=== PATIENT | female | born 1955 | race Caucasian/White ===

== ENCOUNTER 2016-05-17 10:11 | Emergency (ER) | payer MEDICARE, SELFPAY ==
[~2016-05-17] VITALS: Ht 152.4 cm; Wt 65.0 kg
[~2016-05-17 10:11] MED LIST: BACL10TA PO; BENZ1TAB10 PO; ESOM40SU PO; FLUT16H NASAL; GABA-531 PO; INSNOV SQ; LEVO125 PO; LOSA50TA37 PO; METF500T4 PO; METO50 PO; SIMV-261 PO; TRAZ-147 PO; ZOLP5 PO
[2016-05-17 10:26] LABS: GLUCOSE,POINT OF CARE 219 MG/DL (70-110)
[2016-05-17 11:40] LABS: APPEARANCE,URINE CLEAR (CLEAR); GLUCOSE, URINE (UA) NEGATIVE (NEGATIVE); KETONES,URINE NEGATIVE (NEGATIVE); LEUKOCYTE ESTERASE ,URINE NEGATIVE (NEGATIVE); OCCULT BLOOD,URINE NEGATIVE (NEGATIVE); PH,URINE 5.5 (5.0-8.0); PROTEIN,URINE NEGATIVE (NEGATIVE)
[2016-05-17 11:41] LABS: ADD UA MICROSCOPIC NO
[2016-05-17 12:24] LABS: BASOPHILS # (AUTO) 0.08 K/uL (0.00-0.20); BASOPHILS % (AUTO) 0.9 % (0.0-2.0); EOSINOPHILS # (AUTO) 0.12 K/uL (0.00-0.70); EOSINOPHILS % (AUTO) 1.37 % (1.0-6.0); HEMATOCRIT 46.5 % (36-46); HEMOGLOBIN 15.2 g/dL (12.0-16.0); LYMPHOCYTES # (AUTO) 1.6 K/uL (1.0-4.8); MEAN CORPUSCULAR HEMOGLOBIN 29.4 pg (26.0-34.0); MEAN CORPUSCULAR HGB CONC 32.6 G/dL (31.0-37.0); MEAN CORPUSCULAR VOLUME 90 fL (80-100); MONOCYTES # (AUTO) 0.8 K/uL (0.1-1.0); MONOCYTES % (AUTO) 8.5 % (2.0-9.0); NEUTROPHILS # (AUTO) 6.4 K/uL (1.8-7.7); NEUTROPHILS % (AUTO) 71.3 % (40.0-70.0); PLATELET COUNT (AUTO) 324 K/uL (150-450); RED BLOOD CELL COUNT(AUTO) 5.16 MIL/uL (4.00-5.20); RED CELL DISTRIBUTION WIDTH 19.3 % (11.5-14.5)
[2016-05-17 12:42] LABS: ANION GAP 6 mmol/L (8-16); CALCIUM, TOTAL 9.2 mg/dL (8.8-10.5); CARBON DIOXIDE 30 mmol/L (22-29); CHLORIDE 100 mmol/L (98-107); CREATININE 1.62 mg/dL (0.60-1.30); GLOMERULAR FILTR. RATE CALC 32 mL/min (>60); POTASSIUM 4.2 mmol/L (3.5-5.1); SODIUM SERUM 136 mmol/L (136-145); UREA NITROGEN, BLOOD 16 mg/dL (7-18)
[2016-05-17 12:48] LABS: RBC MORPHOLOGY COMMENT ABNORMAL RBC MORPH
[2016-05-17 12:53] VITALS: BP 101/65
[2016-05-17 13:01] LABS: TROPONIN I 0.04 ng/mL (0.00-0.05)
[2016-05-17 13:08] LABS: ALANINE AMINOTRANSFERASE 24 U/L (12-78); ALBUMIN 3.4 g/dL (3.4-5.0); ASPARTATE AMINOTRANSFERASE 14 U/L (15-37); BILIRUBIN,TOTAL 0.3 mg/dL (0.1-1.0); CREATINE KINASE MB 1.8 ng/mL (0-5); CREATINE KINASE, TOTAL 156 U/L (26-192); TOTAL PROTEIN, SERUM 7.1 g/dL (6.4-8.2)
[2016-05-17] MEDS ORDERED: ESOM20CA31 PO (14:13)
[2016-05-17] MEDS ORDERED: TraMADol HCL 50 MG TABLET PO ONE (14:15)
[2016-05-17 14:18] LABS: B-TYPE NATRIURETIC PEPTIDE < 5 pg/mL (0-100)
[2016-09-06] MEDS ORDERED: DSS100 PO (15:02)
[2016-09-06] MEDS ORDERED: PANT40TA25 PO (15:02)
[2016-09-06] MEDS ORDERED: PERCT PO (15:03)
[2016-09-06] MEDS ORDERED: [UNRECOGNIZED DRUG - CODE] IV (15:05)
== END 2016-05-17 15:53 | disposition home or self-care (01) ==
LOC: EMS 10:13
DX: E86.0 Dehydration (principal); M54.5 Low back pain; F17.210 Nicotine dependence, cigarettes, uncomplicated; J45.909 Unspecified asthma, uncomplicated; I10 Essential (primary) hypertension; E11.9 Type 2 diabetes mellitus without complications
CPT/HCPCS: 82962; 99285; 99406

== ENCOUNTER 2016-07-30 16:20 | Inpatient (IN) | payer MEDICARE ==
[~2016-07-30] VITALS: Ht 149.9 cm; Wt 101.5 kg
[~2016-07-30 16:20] MED LIST changes: +ESOM20CA31 PO; -ESOM40SU PO
[2016-07-30 17:42] LABS: BASOPHILS % (AUTO) 0.5 % (0.0-2.0); EOSINOPHILS % (AUTO) 3.1 % (1.0-6.0); HEMATOCRIT 50.4 % (36-46); LYMPHOCYTES # (AUTO) 2.3 K/uL (1.0-4.8); LYMPHOCYTES % (AUTO) 30.3 % (22.0-44.0); MEAN CORPUSCULAR HEMOGLOBIN 28.9 pg (26.0-34.0); MEAN CORPUSCULAR HGB CONC 31.7 G/dL (31.0-37.0); MEAN CORPUSCULAR VOLUME 91 fL (80-100); MONOCYTES # (AUTO) 0.4 K/uL (0.1-1.0); NEUTROPHILS # (AUTO) 4.5 K/uL (1.8-7.7); NEUTROPHILS % (AUTO) 60.1 % (40.0-70.0); PLATELET COUNT (AUTO) 307 K/uL (150-450); RED BLOOD CELL COUNT(AUTO) 5.52 MIL/uL (4.00-5.20); RED CELL DISTRIBUTION WIDTH 16.6 % (11.5-14.5); WHITE BLOOD COUNT (AUTO) 7.5 K/uL (4.5-11.0)
[2016-07-30 17:51] VITALS: BP 147/103
[2016-07-30 17:52] LABS: CALCIUM, TOTAL 10.3 mg/dL (8.8-10.5); CREATININE 1.27 mg/dL (0.60-1.30); POTASSIUM 5.1 mmol/L (3.5-5.1)
[2016-07-30 17:58] LABS: ALBUMIN 3.3 g/dL (3.4-5.0); BILIRUBIN,TOTAL 0.3 mg/dL (0.1-1.0)
[2016-07-30] MEDS ORDERED: ALBUTEROL SULFATE HFA 90 MCG/PUFF 8 GM INHALER IH PRN (18:30)
[2016-07-30] MEDS ORDERED: ONDANSETRON HCL 4 MG/2 ML VIAL IVP PRN (19:15)
[2016-07-30] MEDS ORDERED: ZOLPIDEM TARTRATE 5 MG TABLET PO PRN (19:15)
[2016-07-30 19:43] VITALS: BP 140/93
[2016-07-30] MEDS ORDERED: IOVERSOL 350 MG/ML 150 ML VIAL ONE (19:45)
[2016-07-30] MEDS ORDERED: SODIUM CHLORIDE 0.9% 100 ML ONE (19:45)
[2016-07-30] MEDS ORDERED: BARIUM SULFATE 0.1% SUSPENSION 450 ML BOTTLE ONE (19:46)
[2016-07-30 21:03] LABS: PROTHROMBIN TIME 10.8 SEC (9.4-11.6)
[2016-07-30] MEDS: GABAPENTIN 400 MG CAPSULE PO SCH (21:15)
[2016-07-30] MEDS: ENOXAPARIN SODIUM 40 MG/0.4 ML PF SYRINGE SQ SCH (21:15)
[2016-07-30] MEDS: METOPROLOL TARTRATE 50 MG TABLET PO SCH (21:16)
[2016-07-30] MEDS: TraZODone HCL 150 MG TABLET PO SCH (21:16)
[2016-07-30] MEDS: MIRTAZAPINE 30 MG TABLET PO SCH (21:16)
[2016-07-30 23:36] VITALS: BP 101/57
[2016-07-31 04:52] VITALS: BP 118/65
[2016-07-31] MEDS: LEVOTHYROXINE SODIUM 125 MCG TABLET PO SCH (05:50)
[2016-07-31 07:39] VITALS: BP 119/66
[2016-07-31] MEDS: MetFORMIN HCL 500 MG TABLET PO SCH ×2 (08:00→17:53)
[2016-07-31 08:12] LABS: GLUCOSE,POINT OF CARE 85 MG/DL (70-110)
[2016-07-31] MEDS ORDERED: QUEtiapine FUMARATE 200 MG TABLET PO SCH (09:00)
[2016-07-31] MEDS: METOPROLOL TARTRATE 50 MG TABLET PO SCH ×2 (09:00→21:00)
[2016-07-31 11:30] VITALS: BP 106/72
[2016-07-31 11:52] LABS: GLUCOSE,POINT OF CARE 89 MG/DL (70-110)
[2016-07-31] MEDS ORDERED: SODIUM CHLORIDE 0.9% 100 ML ONE (13:13)
[2016-07-31] MEDS ORDERED: IOVERSOL 350 MG/ML 100 ML VIAL ONE (13:13)
[2016-07-31] MEDS: FLUTICASONE/VILANTEROL 200-25 MCG/INH INHALER [14] IH SCH (15:24)
[2016-07-31] MEDS: GABAPENTIN 400 MG CAPSULE PO SCH ×3 (15:26→20:46)
[2016-07-31] MEDS: PANTOPRAZOLE SODIUM 40 MG DR TABLET PO SCH (15:26)
[2016-07-31] MEDS: RisperiDONE 1 MG TABLET PO SCH (15:27)
[2016-07-31] MEDS: ENOXAPARIN SODIUM 40 MG/0.4 ML PF SYRINGE SQ SCH (15:27)
[2016-07-31] MEDS: LOSARTAN POTASSIUM 50 MG TABLET PO SCH (15:27)
[2016-07-31 16:16] VITALS: BP 128/75
[2016-07-31 17:38] LABS: GLUCOSE,POINT OF CARE 162 MG/DL (70-110)
[2016-07-31] MEDS: OxyCODONE HCL/ACETAMINOPHEN 5-325 MG TABLET PO PRN ×2 (17:53→23:42)
[2016-07-31 19:35] VITALS: BP 118/73
[2016-07-31 20:15] LABS: EOSINOPHILS % (AUTO) 1.9 % (1.0-6.0); HEMATOCRIT 45.4 % (36-46); HEMOGLOBIN 14.5 g/dL (12.0-16.0); LYMPHOCYTES # (AUTO) 2.1 K/uL (1.0-4.8); LYMPHOCYTES % (AUTO) 33.1 % (22.0-44.0); MEAN CORPUSCULAR HEMOGLOBIN 28.9 pg (26.0-34.0); MEAN CORPUSCULAR VOLUME 90 fL (80-100); MONOCYTES # (AUTO) 0.3 K/uL (0.1-1.0); MONOCYTES % (AUTO) 5.1 % (2.0-9.0); NEUTROPHILS # (AUTO) 3.7 K/uL (1.8-7.7); NEUTROPHILS % (AUTO) 58.9 % (40.0-70.0); PLATELET COUNT (AUTO) 300 K/uL (150-450); RED BLOOD CELL COUNT(AUTO) 5.02 MIL/uL (4.00-5.20); RED CELL DISTRIBUTION WIDTH 16.1 % (11.5-14.5); WHITE BLOOD COUNT (AUTO) 6.2 K/uL (4.5-11.0)
[2016-07-31 20:32] LABS: ALBUMIN 2.7 g/dL (3.4-5.0); BILIRUBIN,TOTAL 0.2 mg/dL (0.1-1.0); CALCIUM, TOTAL 8.5 mg/dL (8.8-10.5); CREATININE 1.08 mg/dL (0.60-1.30); POTASSIUM 4.4 mmol/L (3.5-5.1); TOTAL PROTEIN, SERUM 5.9 g/dL (6.4-8.2)
[2016-07-31] MEDS: TraZODone HCL 150 MG TABLET PO SCH (20:46)
[2016-07-31] MEDS: MIRTAZAPINE 30 MG TABLET PO SCH (20:46)
[2016-07-31] MEDS: QUEtiapine FUMARATE 200 MG TABLET PO SCH (20:46)
[2016-07-31 23:32] VITALS: BP 101/57
[2016-08-01 04:52] VITALS: BP 98/66
[2016-08-01] MEDS: OxyCODONE HCL/ACETAMINOPHEN 5-325 MG TABLET PO PRN ×5 (05:02→20:11)
[2016-08-01] MEDS: LEVOTHYROXINE SODIUM 125 MCG TABLET PO SCH (05:54)
[2016-08-01] MEDS: PANTOPRAZOLE SODIUM 40 MG DR TABLET PO SCH (08:05)
[2016-08-01] MEDS: GABAPENTIN 400 MG CAPSULE PO SCH ×3 (08:05→20:08)
[2016-08-01] MEDS: LOSARTAN POTASSIUM 50 MG TABLET PO SCH (08:05)
[2016-08-01] MEDS: FLUTICASONE/VILANTEROL 200-25 MCG/INH INHALER [14] IH SCH (08:05)
[2016-08-01] MEDS: MetFORMIN HCL 500 MG TABLET PO SCH ×2 (08:05→17:20)
[2016-08-01] MEDS: METOPROLOL TARTRATE 50 MG TABLET PO SCH ×2 (08:06→20:10)
[2016-08-01] MEDS: ENOXAPARIN SODIUM 40 MG/0.4 ML PF SYRINGE SQ SCH (08:06)
[2016-08-01] MEDS: RisperiDONE 1 MG TABLET PO SCH (08:06)
[2016-08-01 08:32] VITALS: BP 108/65
[2016-08-01] MEDS ORDERED: DENTURE ADHESIVE 68 GM CREAM DT PRN (10:45)
[2016-08-01 12:06] VITALS: BP 109/54
[2016-08-01 12:07] LABS: GLUCOSE,POINT OF CARE 105 MG/DL (70-110)
[2016-08-01 15:02] VITALS: BP 105/51
[2016-08-01 17:51] LABS: GLUCOSE,POINT OF CARE 109 MG/DL (70-110)
[2016-08-01] MEDS: MIRTAZAPINE 30 MG TABLET PO SCH (20:06)
[2016-08-01] MEDS: TraZODone HCL 150 MG TABLET PO SCH (20:08)
[2016-08-01] MEDS: QUEtiapine FUMARATE 200 MG TABLET PO SCH (20:10)
[2016-08-01] MEDS ORDERED: BISACODYL 10 MG RECTAL RECTAL SUPPOSITORY PR ONE (20:15)
[2016-08-01 20:18] VITALS: BP 124/59
[2016-08-02] VITALS (7 sets, daily range): BP systolic 90–112; BP diastolic 40–67
[2016-08-02] MEDS: LEVOTHYROXINE SODIUM 125 MCG TABLET PO SCH (06:41)
[2016-08-02] MEDS: GABAPENTIN 400 MG CAPSULE PO SCH ×3 (08:16→20:28)
[2016-08-02] MEDS: MetFORMIN HCL 500 MG TABLET PO SCH ×2 (08:16→17:01)
[2016-08-02] MEDS: PANTOPRAZOLE SODIUM 40 MG DR TABLET PO SCH (08:16)
[2016-08-02] MEDS: RisperiDONE 1 MG TABLET PO SCH (08:16)
[2016-08-02] MEDS: LOSARTAN POTASSIUM 50 MG TABLET PO SCH (08:17)
[2016-08-02] MEDS: ENOXAPARIN SODIUM 40 MG/0.4 ML PF SYRINGE SQ SCH (08:17)
[2016-08-02] MEDS: FLUTICASONE/VILANTEROL 200-25 MCG/INH INHALER [14] IH SCH (08:17)
[2016-08-02] MEDS: MAGNESIUM CITRATE 300 ML ORAL SOLUTION PO SCH ×2 (09:00→17:02)
[2016-08-02] MEDS: METOPROLOL TARTRATE 50 MG TABLET PO SCH ×2 (09:00→20:28)
[2016-08-02] MEDS: PEG 3350/NA SULF,BICARB,CL/KCL 4000 ML SOLUTION PO ONE ×2 (11:49→18:49)
[2016-08-02] MEDS: OxyCODONE HCL/ACETAMINOPHEN 5-325 MG TABLET PO PRN ×2 (12:21→15:49)
[2016-08-02 14:02] LABS: GLUCOSE,POINT OF CARE 90 MG/DL (70-110)
[2016-08-02 17:02] LABS: GLUCOSE,POINT OF CARE 105 MG/DL (70-110)
[2016-08-02] MEDS: TraZODone HCL 150 MG TABLET PO SCH (20:28)
[2016-08-02] MEDS: QUEtiapine FUMARATE 200 MG TABLET PO SCH (20:28)
[2016-08-02] MEDS: MIRTAZAPINE 30 MG TABLET PO SCH (20:28)
[2016-08-03] VITALS (7 sets, daily range): BP systolic 94–113; BP diastolic 56–71
[2016-08-03] MEDS: OxyCODONE HCL/ACETAMINOPHEN 5-325 MG TABLET PO PRN ×5 (01:39→18:09)
[2016-08-03] MEDS: LEVOTHYROXINE SODIUM 125 MCG TABLET PO SCH (05:19)
[2016-08-03] MEDS: PANTOPRAZOLE SODIUM 40 MG DR TABLET PO SCH (08:01)
[2016-08-03] MEDS: GABAPENTIN 400 MG CAPSULE PO SCH ×3 (08:01→19:59)
[2016-08-03] MEDS: ENOXAPARIN SODIUM 40 MG/0.4 ML PF SYRINGE SQ SCH (08:01)
[2016-08-03] MEDS: FLUTICASONE/VILANTEROL 200-25 MCG/INH INHALER [14] IH SCH (08:01)
[2016-08-03] MEDS: RisperiDONE 1 MG TABLET PO SCH (08:01)
[2016-08-03] MEDS: LORazepam 1 MG TABLET PO PRN (08:01)
[2016-08-03] MEDS: MetFORMIN HCL 500 MG TABLET PO SCH ×2 (08:04→18:05)
[2016-08-03] MEDS: METOPROLOL TARTRATE 50 MG TABLET PO SCH ×2 (09:00→20:00)
[2016-08-03] MEDS: LOSARTAN POTASSIUM 50 MG TABLET PO SCH (09:00)
[2016-08-03] MEDS: MAGNESIUM CITRATE 300 ML ORAL SOLUTION PO SCH (11:11)
[2016-08-03 11:47] LABS: GLUCOSE,POINT OF CARE 106 MG/DL (70-110)
[2016-08-03 17:22] LABS: GLUCOSE,POINT OF CARE 118 MG/DL (70-110)
[2016-08-03] MEDS: TraZODone HCL 150 MG TABLET PO SCH (19:59)
[2016-08-03] MEDS: QUEtiapine FUMARATE 200 MG TABLET PO SCH (19:59)
[2016-08-03] MEDS: MIRTAZAPINE 30 MG TABLET PO SCH (20:00)
[2016-08-04] MEDS: OxyCODONE HCL/ACETAMINOPHEN 5-325 MG TABLET PO PRN ×5 (04:23→20:48)
[2016-08-04] MEDS: LEVOTHYROXINE SODIUM 125 MCG TABLET PO SCH (05:39)
[2016-08-04 06:01] VITALS: BP 118/76
[2016-08-04] MEDS ORDERED: LEVOTHYROXINE SODIUM 125 MCG TABLET PO SCH (07:00)
[2016-08-04 08:00] VITALS: BP 131/82
[2016-08-04] MEDS ORDERED: MetFORMIN HCL 500 MG TABLET PO SCH (08:00)
[2016-08-04] MEDS ORDERED: METOPROLOL TARTRATE 50 MG TABLET PO SCH (09:00)
[2016-08-04] MEDS: MAGNESIUM CITRATE 300 ML ORAL SOLUTION PO SCH (09:00)
[2016-08-04] MEDS ORDERED: LOSARTAN POTASSIUM 50 MG TABLET PO SCH (09:00)
[2016-08-04] MEDS: LOSARTAN POTASSIUM 50 MG TABLET PO SCH (10:01)
[2016-08-04] MEDS: GABAPENTIN 300 MG CAPSULE PO SCH ×3 (10:01→20:48)
[2016-08-04] MEDS: PANTOPRAZOLE SODIUM 40 MG DR TABLET PO SCH (10:02)
[2016-08-04] MEDS: MetFORMIN HCL 500 MG TABLET PO SCH ×2 (10:11→16:37)
[2016-08-04] MEDS: ENOXAPARIN SODIUM 40 MG/0.4 ML PF SYRINGE SQ SCH (10:12)
[2016-08-04] MEDS: METOPROLOL TARTRATE 50 MG TABLET PO SCH ×2 (10:12→20:49)
[2016-08-04] MEDS: FLUTICASONE/VILANTEROL 200-25 MCG/INH INHALER [14] IH SCH (10:12)
[2016-08-04] MEDS: BENZTROPINE MESYLATE 1 MG TABLET PO SCH ×2 (11:36→20:48)
[2016-08-04] MEDS: BACLOFEN 10 MG TABLET PO SCH ×2 (11:36→20:49)
[2016-08-04] MEDS: RisperiDONE 1 MG TABLET PO SCH (12:12)
[2016-08-04 12:19] VITALS: BP 112/57
[2016-08-04 15:32] VITALS: BP 116/65
[2016-08-04] MEDS ORDERED: ENOXAPARIN SODIUM 30 MG/0.3 ML PF SYRINGE SQ SCH (19:00)
[2016-08-04 19:44] VITALS: BP 93/53
[2016-08-04] MEDS: QUEtiapine FUMARATE 200 MG TABLET PO SCH (20:47)
[2016-08-04] MEDS: SIMVASTATIN 20 MG TABLET PO SCH (20:48)
[2016-08-04] MEDS: ZOLPIDEM TARTRATE 5 MG TABLET PO SCH (20:48)
[2016-08-04] MEDS: MIRTAZAPINE 30 MG TABLET PO SCH (20:48)
[2016-08-04] MEDS: TraZODone HCL 100 MG TABLET PO SCH (21:00)
[2016-08-04] MEDS ORDERED: DEXTROSE 50%-WATER 25 GM/50 ML SYRINGE IVP PRN (21:00)
[2016-08-05] VITALS (7 sets, daily range): BP systolic 111–139; BP diastolic 44–85
[2016-08-05] MEDS: OxyCODONE HCL/ACETAMINOPHEN 5-325 MG TABLET PO PRN ×4 (05:05→20:07)
[2016-08-05 05:22] LABS: GLUCOSE,POINT OF CARE 88 MG/DL (70-110)
[2016-08-05] MEDS: INSULIN ASPART 100 UNITS/ML SQ PRN ×2 (05:28→20:35)
[2016-08-05] MEDS: LEVOTHYROXINE SODIUM 125 MCG TABLET PO SCH (07:29)
[2016-08-05] MEDS: PANTOPRAZOLE SODIUM 40 MG DR TABLET PO SCH (07:55)
[2016-08-05] MEDS: FLUTICASONE/VILANTEROL 200-25 MCG/INH INHALER [14] IH SCH (07:55)
[2016-08-05] MEDS: BACLOFEN 10 MG TABLET PO SCH ×2 (07:56→20:07)
[2016-08-05] MEDS: GABAPENTIN 300 MG CAPSULE PO SCH ×3 (07:56→23:46)
[2016-08-05] MEDS: METOPROLOL TARTRATE 50 MG TABLET PO SCH ×2 (07:57→23:44)
[2016-08-05] MEDS: BENZTROPINE MESYLATE 1 MG TABLET PO SCH ×2 (07:59→20:08)
[2016-08-05] MEDS: LOSARTAN POTASSIUM 50 MG TABLET PO SCH (08:00)
[2016-08-05] MEDS: RisperiDONE 1 MG TABLET PO SCH (08:23)
[2016-08-05 12:22] LABS: GLUCOSE,POINT OF CARE 75 MG/DL (70-110)
[2016-08-05 17:52] LABS: GLUCOSE,POINT OF CARE 93 MG/DL (70-110)
[2016-08-05] MEDS: TraZODone HCL 100 MG TABLET PO SCH (20:07)
[2016-08-05] MEDS: MIRTAZAPINE 30 MG TABLET PO SCH (20:07)
[2016-08-05] MEDS: SIMVASTATIN 20 MG TABLET PO SCH (20:07)
[2016-08-05] MEDS: ZOLPIDEM TARTRATE 5 MG TABLET PO SCH (20:07)
[2016-08-05] MEDS ORDERED: FentaNYL/BUPIV 0.125%/NS/PF 200 ML ED PRN (20:08)
[2016-08-05] MEDS: QUEtiapine FUMARATE 200 MG TABLET PO SCH (20:08)
[2016-08-05] MEDS ORDERED: PROMETHAZINE HCL 25 MG/ML VIAL IM PRN (20:15)
[2016-08-05] MEDS ORDERED: ONDANSETRON HCL 4 MG/2 ML VIAL IVP PRN (20:15)
[2016-08-05] MEDS ORDERED: NALBUPHINE HCL 10 MG/ML VIAL IVP PRN (20:15)
[2016-08-05] MEDS ORDERED: DiphenhydrAMINE HCL 50 MG/ML VIAL IVP PRN (20:15)
[2016-08-05 20:57] LABS: GLUCOSE,POINT OF CARE 170 MG/DL (70-110)
[2016-08-06 03:33] VITALS: BP 105/56
[2016-08-06 05:42] LABS: GLUCOSE,POINT OF CARE 94 MG/DL (70-110)
[2016-08-06] MEDS: LEVOTHYROXINE SODIUM 125 MCG TABLET PO SCH (06:23)
[2016-08-06] MEDS ORDERED: RINGERS SOLUTION,LACTATED 1,000 ML IV ONE ×2 (06:30→10:45)
[2016-08-06] MEDS ORDERED: SODIUM CHLORIDE 0.9% 10 ML ONE (07:09)
[2016-08-06] MEDS ORDERED: BUPIVACAINE 0.25%/EPI 1:200,000/PF 10 ML VIAL ONE ×3 (07:09→10:37)
[2016-08-06] MEDS ORDERED: BACITRACIN 50,000 UNITS/VIAL ONE (07:09)
[2016-08-06] MEDS: METOPROLOL TARTRATE 50 MG TABLET PO SCH ×2 (09:00→21:00)
[2016-08-06] MEDS: BENZTROPINE MESYLATE 1 MG TABLET PO SCH ×2 (09:00→19:33)
[2016-08-06] MEDS: LOSARTAN POTASSIUM 50 MG TABLET PO SCH (09:00)
[2016-08-06] MEDS: GABAPENTIN 300 MG CAPSULE PO SCH ×3 (09:00→23:54)
[2016-08-06] MEDS: RisperiDONE 1 MG TABLET PO SCH (09:00)
[2016-08-06] MEDS: FLUTICASONE/VILANTEROL 200-25 MCG/INH INHALER [14] IH SCH (09:00)
[2016-08-06] MEDS: BACLOFEN 10 MG TABLET PO SCH ×2 (09:00→19:32)
[2016-08-06] MEDS ORDERED: HYDROmorphone 2 MG/ML SYRINGE IVP PRN (09:15)
[2016-08-06] MEDS ORDERED: MEPERIDINE-PF 25 MG/ML SYRINGE IVP PRN (09:15)
[2016-08-06] MEDS ORDERED: FentaNYL CITRATE-PF 100 MCG/2 ML VIAL IVP PRN (09:15)
[2016-08-06] MEDS ORDERED: PHENYLEPHRINE HCL 10 MG/ML VIAL IVP ONE (12:00)
[2016-08-06] MEDS ORDERED: PROPOFOL 1% 20 ML VIAL IVP ONE (12:00)
[2016-08-06] MEDS ORDERED: ROCURONIUM BROMIDE 10 MG/ML 5 ML VIAL IVP ONE (12:00)
[2016-08-06] MEDS ORDERED: ONDANSETRON HCL 4 MG/2 ML VIAL IVP ONE (12:00)
[2016-08-06] MEDS ORDERED: LIDOCAINE HCL/PF 2% 5 ML VIAL INJ ONE (12:00)
[2016-08-06] MEDS ORDERED: GLYCOPYRROLATE 0.2 MG/ML VIAL IM ONE (12:00)
[2016-08-06] MEDS ORDERED: NEOSTIGMINE METHYLSULFATE 1 MG/ML 10 ML VIAL IVP ONE (12:00)
[2016-08-06] MEDS ORDERED: EPHEDrine SULFATE 50 MG/ML VIAL IM ONE (12:00)
[2016-08-06] MEDS ORDERED: HYDROmorphone 2 MG/ML SYRINGE IVP ONE (12:00)
[2016-08-06] MEDS ORDERED: SUCCINYLCHOLINE CHLORIDE 20 MG/ML 10 ML VIAL IVP ONE (12:00)
[2016-08-06] MEDS ORDERED: MIDAZOLAM HCL 2 MG/2 ML VIAL IVP ONE (12:00)
[2016-08-06] MEDS ORDERED: FentaNYL CITRATE-PF 100 MCG/2 ML VIAL IVP ONE (12:00)
[2016-08-06] MEDS ORDERED: METOCLOPRAMIDE HCL 5 MG/ML 2 ML VIAL IVP ONE (12:00)
[2016-08-06] MEDS ORDERED: DEXTROSE 5%-0.45% SODIUM CHL 1,000 ML IV PRN (12:24)
[2016-08-06] MEDS ORDERED: HYDROmorphone HCL 50 MG/NS/PF 100 ML IV PRN ×4 (12:24→18:30)
[2016-08-06] MEDS ORDERED: DiphenhydrAMINE HCL 50 MG/ML VIAL IVP PRN (12:30)
[2016-08-06] MEDS ORDERED: NALBUPHINE HCL 10 MG/ML VIAL IVP PRN (12:30)
[2016-08-06] MEDS ORDERED: NALOXONE HCL 0.4 MG/ML VIAL IVP PRN (12:30)
[2016-08-06] MEDS ORDERED: PROMETHAZINE HCL 25 MG RECTAL SUPPOSITORY PR PRN (12:30)
[2016-08-06] MEDS ORDERED: NALOXONE HCL 0.4 MG/ML VIAL IM PRN (12:30)
[2016-08-06] MEDS ORDERED: FentaNYL CITRATE-PF 100 MCG/2 ML VIAL ONE (12:57)
[2016-08-06 14:32] VITALS: BP 119/78
[2016-08-06] MEDS: CeFAZolin 2 GM/DEXTROSE 50 ML IV SCH (16:25)
[2016-08-06] MEDS: POTASSIUM CHL 20 MEQ/D5LR 1,000 ML IV SCH (16:26)
[2016-08-06 18:02] LABS: GLUCOSE,POINT OF CARE 215 MG/DL (70-110)
[2016-08-06] MEDS: LORazepam 1 MG TABLET PO PRN (18:08)
[2016-08-06] MEDS: INSULIN ASPART 100 UNITS/ML SQ PRN ×2 (18:15→21:42)
[2016-08-06] MEDS: SIMVASTATIN 20 MG TABLET PO SCH (19:32)
[2016-08-06] MEDS: QUEtiapine FUMARATE 200 MG TABLET PO SCH (19:32)
[2016-08-06] MEDS: MIRTAZAPINE 30 MG TABLET PO SCH (19:32)
[2016-08-06] MEDS: FAMOTIDINE 20 MG TABLET PO SCH (19:33)
[2016-08-06] MEDS: ONDANSETRON HCL 4 MG/2 ML VIAL IVP PRN (19:38)
[2016-08-06 20:00] VITALS: BP 94/57
[2016-08-06] MEDS: TraZODone HCL 100 MG TABLET PO SCH (21:00)
[2016-08-06] MEDS: ZOLPIDEM TARTRATE 5 MG TABLET PO SCH (21:00)
[2016-08-06 21:12] LABS: GLUCOSE,POINT OF CARE 183 MG/DL (70-110)
[2016-08-06] MEDS ORDERED: SODIUM CHLORIDE 0.9% 500 ML IV ONE ×2 (21:30→22:45)
[2016-08-06] MEDS: OXYGEN THERAPY IH SCH (21:44)
[2016-08-06 21:49] VITALS: BP 110/60
[2016-08-06 21:53] LABS: HEMATOCRIT 49.3 % (36-46); HEMOGLOBIN 15.9 g/dL (12.0-16.0); MEAN CORPUSCULAR HEMOGLOBIN 29.5 pg (26.0-34.0); MEAN CORPUSCULAR HGB CONC 32.2 G/dL (31.0-37.0); MEAN CORPUSCULAR VOLUME 92 fL (80-100); PLATELET COUNT (AUTO) 276 K/uL (150-450); RED BLOOD CELL COUNT(AUTO) 5.38 MIL/uL (4.00-5.20); RED CELL DISTRIBUTION WIDTH 15.8 % (11.5-14.5); WHITE BLOOD COUNT (AUTO) 17.5 K/uL (4.5-11.0)
[2016-08-06 22:15] LABS: BAND NEUTROPHILS % (MANUAL) 13 % (1-5); EOSINOPHILS % (MANUAL) 1 % (1-6); LYMPHOCYTES % (MANUAL) 1 % (22-44); TOTAL CELLS COUNTED 100
[2016-08-06 22:17] LABS: RBC MORPHOLOGY COMMENT NORMAL RBC MORPH
[2016-08-06 23:10] VITALS: BP 101/62
[2016-08-07] VITALS (8 sets, daily range): BP systolic 90–155; BP diastolic 50–89
[2016-08-07] MEDS: CeFAZolin 2 GM/DEXTROSE 50 ML IV SCH (00:04)
[2016-08-07] MEDS: POTASSIUM CHL 20 MEQ/D5LR 1,000 ML IV SCH (02:37)
[2016-08-07] MEDS ORDERED: SODIUM CHLORIDE 0.9% 1,000 ML IV ONE (04:15)
[2016-08-07] MEDS ORDERED: OxyCODONE HCL/ACETAMINOPHEN 5-325 MG TABLET PO PRN ×2 (07:00)
[2016-08-07 07:01] LABS: CALCIUM, TOTAL 7.7 mg/dL (8.8-10.5); CREATININE 1.1 mg/dL (0.60-1.30); POTASSIUM 5.3 mmol/L (3.5-5.1)
[2016-08-07 07:16] LABS: BASOPHILS # (AUTO) 0.02 K/uL (0.00-0.20); BASOPHILS % (AUTO) 0.1 % (0.0-2.0); EOSINOPHILS # (AUTO) 0.04 K/uL (0.00-0.70); EOSINOPHILS % (AUTO) 0.31 % (1.0-6.0); HEMATOCRIT 45.9 % (36-46); HEMOGLOBIN 14.8 g/dL (12.0-16.0); LYMPHOCYTES # (AUTO) 0.7 K/uL (1.0-4.8); LYMPHOCYTES % (AUTO) 5.1 % (22.0-44.0); MEAN CORPUSCULAR HEMOGLOBIN 29.8 pg (26.0-34.0); MEAN CORPUSCULAR HGB CONC 32.3 G/dL (31.0-37.0); MEAN CORPUSCULAR VOLUME 92 fL (80-100); MONOCYTES # (AUTO) 0.4 K/uL (0.1-1.0); MONOCYTES % (AUTO) 2.5 % (2.0-9.0); NEUTROPHILS # (AUTO) 13.3 K/uL (1.8-7.7); PLATELET COUNT (AUTO) 271 K/uL (150-450); RBC MORPHOLOGY COMMENT NORMAL RBC MORPH; RED BLOOD CELL COUNT(AUTO) 4.98 MIL/uL (4.00-5.20); RED CELL DISTRIBUTION WIDTH 16.3 % (11.5-14.5); WHITE BLOOD COUNT (AUTO) 14.4 K/uL (4.5-11.0)
[2016-08-07] MEDS: LEVOTHYROXINE SODIUM 125 MCG TABLET PO SCH (07:36)
[2016-08-07] MEDS: LOSARTAN POTASSIUM 50 MG TABLET PO SCH (09:00)
[2016-08-07] MEDS: RisperiDONE 1 MG TABLET PO SCH (09:00)
[2016-08-07] MEDS: METOPROLOL TARTRATE 50 MG TABLET PO SCH ×2 (09:00→20:50)
[2016-08-07] MEDS: BACLOFEN 10 MG TABLET PO SCH ×2 (09:00→20:49)
[2016-08-07] MEDS: GABAPENTIN 300 MG CAPSULE PO SCH ×3 (09:00→20:48)
[2016-08-07] MEDS: BENZTROPINE MESYLATE 1 MG TABLET PO SCH ×2 (09:00→20:47)
[2016-08-07] MEDS: OXYGEN THERAPY IH SCH ×2 (09:14→21:08)
[2016-08-07] MEDS: FLUTICASONE/VILANTEROL 200-25 MCG/INH INHALER [14] IH SCH (09:21)
[2016-08-07] MEDS: FAMOTIDINE 20 MG TABLET PO SCH ×2 (09:22→20:48)
[2016-08-07] MEDS: DEXTROSE 5%-LACTATED RINGERS 1,000 ML IV SCH ×2 (10:00→21:09)
[2016-08-07] MEDS ORDERED: DEXTROSE 5%-LACTATED RINGERS 1,000 ML IV ONE (10:05)
[2016-08-07 11:58] LABS: GLUCOSE,POINT OF CARE 167 MG/DL (70-110)
[2016-08-07 20:11] LABS: GLUCOSE,POINT OF CARE 144 MG/DL (70-110)
[2016-08-07] MEDS: ZOLPIDEM TARTRATE 5 MG TABLET PO SCH (20:47)
[2016-08-07] MEDS: TraZODone HCL 100 MG TABLET PO SCH (20:48)
[2016-08-07] MEDS: QUEtiapine FUMARATE 200 MG TABLET PO SCH (20:49)
[2016-08-07] MEDS: SIMVASTATIN 20 MG TABLET PO SCH (20:49)
[2016-08-07] MEDS: MIRTAZAPINE 30 MG TABLET PO SCH (20:49)
[2016-08-07 22:22] LABS: GLUCOSE COMMENT 1 Received Meds; GLUCOSE,POINT OF CARE 136 MG/DL (70-110)
[2016-08-08] VITALS (7 sets, daily range): BP systolic 113–149; BP diastolic 47–74
[2016-08-08] MEDS: FLUTICASONE/VILANTEROL 200-25 MCG/INH INHALER [14] IH SCH (05:39)
[2016-08-08 06:12] LABS: GLUCOSE COMMENT 1 Received Meds; GLUCOSE,POINT OF CARE 148 MG/DL (70-110)
[2016-08-08 06:32] LABS: BASOPHILS % (AUTO) 0.3 % (0.0-2.0); EOSINOPHILS % (AUTO) 1.3 % (1.0-6.0); HEMATOCRIT 40.2 % (36-46); HEMOGLOBIN 12.5 g/dL (12.0-16.0); LYMPHOCYTES % (AUTO) 8.3 % (22.0-44.0); MEAN CORPUSCULAR HEMOGLOBIN 28.8 pg (26.0-34.0); MEAN CORPUSCULAR HGB CONC 31.1 G/dL (31.0-37.0); MEAN CORPUSCULAR VOLUME 93 fL (80-100); MONOCYTES # (AUTO) 0.7 K/uL (0.1-1.0); MONOCYTES % (AUTO) 6.2 % (2.0-9.0); NEUTROPHILS % (AUTO) 83.9 % (40.0-70.0); PLATELET COUNT (AUTO) 242 K/uL (150-450); RED BLOOD CELL COUNT(AUTO) 4.34 MIL/uL (4.00-5.20); RED CELL DISTRIBUTION WIDTH 16.7 % (11.5-14.5); WHITE BLOOD COUNT (AUTO) 11.9 K/uL (4.5-11.0)
[2016-08-08] MEDS: LEVOTHYROXINE SODIUM 125 MCG TABLET PO SCH (06:53)
[2016-08-08 07:01] LABS: ANION GAP 5 mmol/L (8-16); CALCIUM, TOTAL 7.9 mg/dL (8.8-10.5); CARBON DIOXIDE 28 mmol/L (22-29); CHLORIDE 100 mmol/L (98-107); CREATININE 0.81 mg/dL (0.60-1.30); GLOMERULAR FILTR. RATE CALC > 60 mL/min (>60); POTASSIUM 4.5 mmol/L (3.5-5.1); SODIUM SERUM 133 mmol/L (136-145); UREA NITROGEN, BLOOD 8 mg/dL (7-18)
[2016-08-08] MEDS: DEXTROSE 5%-LACTATED RINGERS 1,000 ML IV SCH (07:34)
[2016-08-08] MEDS: OXYGEN THERAPY IH SCH (08:37)
[2016-08-08] MEDS: BACLOFEN 10 MG TABLET PO SCH ×2 (08:38→20:30)
[2016-08-08] MEDS: GABAPENTIN 300 MG CAPSULE PO SCH ×3 (08:38→20:30)
[2016-08-08] MEDS: FAMOTIDINE 20 MG TABLET PO SCH ×2 (08:38→20:30)
[2016-08-08] MEDS: LOSARTAN POTASSIUM 50 MG TABLET PO SCH (08:38)
[2016-08-08] MEDS: RisperiDONE 1 MG TABLET PO SCH (08:38)
[2016-08-08] MEDS: BENZTROPINE MESYLATE 1 MG TABLET PO SCH ×2 (08:38→20:32)
[2016-08-08] MEDS: METOPROLOL TARTRATE 50 MG TABLET PO SCH ×2 (08:38→20:30)
[2016-08-08 11:17] LABS: GLUCOSE COMMENT 1 Received Meds; GLUCOSE,POINT OF CARE 139 MG/DL (70-110)
[2016-08-08] MEDS: INSULIN ASPART 100 UNITS/ML SQ PRN (17:42)
[2016-08-08 18:02] LABS: GLUCOSE COMMENT 1 Received Meds; GLUCOSE,POINT OF CARE 153 MG/DL (70-110)
[2016-08-08] MEDS: MIRTAZAPINE 30 MG TABLET PO SCH (20:30)
[2016-08-08] MEDS: QUEtiapine FUMARATE 200 MG TABLET PO SCH (20:30)
[2016-08-08] MEDS: TraZODone HCL 100 MG TABLET PO SCH (20:30)
[2016-08-08] MEDS: SIMVASTATIN 20 MG TABLET PO SCH (20:30)
[2016-08-08] MEDS: ZOLPIDEM TARTRATE 5 MG TABLET PO SCH (20:32)
[2016-08-09 04:00] VITALS: BP 125/65
[2016-08-09 05:37] LABS: GLUCOSE,POINT OF CARE 113 MG/DL (70-110)
[2016-08-09] MEDS: LEVOTHYROXINE SODIUM 125 MCG TABLET PO SCH (05:45)
[2016-08-09 06:29] LABS: BASOPHILS % (AUTO) 0.1 % (0.0-2.0); EOSINOPHILS % (AUTO) 2.1 % (1.0-6.0); HEMOGLOBIN 12.5 g/dL (12.0-16.0); LYMPHOCYTES # (AUTO) 0.8 K/uL (1.0-4.8); LYMPHOCYTES % (AUTO) 9.6 % (22.0-44.0); MEAN CORPUSCULAR HEMOGLOBIN 29.3 pg (26.0-34.0); MEAN CORPUSCULAR VOLUME 91 fL (80-100); MONOCYTES # (AUTO) 0.6 K/uL (0.1-1.0); MONOCYTES % (AUTO) 6.4 % (2.0-9.0); NEUTROPHILS # (AUTO) 7.2 K/uL (1.8-7.7); NEUTROPHILS % (AUTO) 81.8 % (40.0-70.0); PLATELET COUNT (AUTO) 219 K/uL (150-450); RED BLOOD CELL COUNT(AUTO) 4.27 MIL/uL (4.00-5.20); RED CELL DISTRIBUTION WIDTH 16.7 % (11.5-14.5); WHITE BLOOD COUNT (AUTO) 8.9 K/uL (4.5-11.0)
[2016-08-09 07:02] VITALS: BP 140/52
[2016-08-09 07:05] LABS: ANION GAP 5 mmol/L (8-16); CALCIUM, TOTAL 8.6 mg/dL (8.8-10.5); CARBON DIOXIDE 31 mmol/L (22-29); CHLORIDE 100 mmol/L (98-107); CREATININE 0.71 mg/dL (0.60-1.30); GLOMERULAR FILTR. RATE CALC > 60 mL/min (>60); POTASSIUM 4.1 mmol/L (3.5-5.1); SODIUM SERUM 136 mmol/L (136-145); UREA NITROGEN, BLOOD 6 mg/dL (7-18)
[2016-08-09 07:42] LABS: GLUCOSE,POINT OF CARE 123 MG/DL (70-110)
[2016-08-09] MEDS: OXYGEN THERAPY IH SCH (09:13)
[2016-08-09] MEDS: LOSARTAN POTASSIUM 50 MG TABLET PO SCH (09:14)
[2016-08-09] MEDS: FLUTICASONE/VILANTEROL 200-25 MCG/INH INHALER [14] IH SCH (09:14)
[2016-08-09] MEDS: FAMOTIDINE 20 MG TABLET PO SCH ×2 (09:14→20:37)
[2016-08-09] MEDS: GABAPENTIN 300 MG CAPSULE PO SCH ×3 (09:14→20:37)
[2016-08-09] MEDS: BENZTROPINE MESYLATE 1 MG TABLET PO SCH ×2 (09:14→20:53)
[2016-08-09] MEDS: RisperiDONE 1 MG TABLET PO SCH (09:15)
[2016-08-09] MEDS: METOPROLOL TARTRATE 50 MG TABLET PO SCH ×2 (09:15→20:53)
[2016-08-09] MEDS: BACLOFEN 10 MG TABLET PO SCH ×2 (09:15→20:37)
[2016-08-09 11:30] VITALS: BP 133/59
[2016-08-09 15:58] VITALS: BP 129/62
[2016-08-09] MEDS: INSULIN ASPART 100 UNITS/ML SQ PRN (17:51)
[2016-08-09 18:12] LABS: GLUCOSE COMMENT 1 Received Meds; GLUCOSE,POINT OF CARE 146 MG/DL (70-110)
[2016-08-09 19:00] VITALS: BP 119/65
[2016-08-09] MEDS ORDERED: HYDROCODONE/ACETAMINOPHEN 5-325 MG TABLET PO PRN (20:00)
[2016-08-09] MEDS ORDERED: BISACODYL 10 MG RECTAL RECTAL SUPPOSITORY PR ONE (20:00)
[2016-08-09] MEDS: TraZODone HCL 100 MG TABLET PO SCH (20:37)
[2016-08-09] MEDS: QUEtiapine FUMARATE 200 MG TABLET PO SCH (20:37)
[2016-08-09] MEDS: ZOLPIDEM TARTRATE 5 MG TABLET PO SCH (20:37)
[2016-08-09] MEDS: SIMVASTATIN 20 MG TABLET PO SCH (20:37)
[2016-08-09] MEDS: MIRTAZAPINE 30 MG TABLET PO SCH (20:39)
[2016-08-09] MEDS: HYDROmorphone 2 MG/ML SYRINGE IVP PRN (23:53)
[2016-08-10] VITALS (7 sets, daily range): BP systolic 94–145; BP diastolic 60–79
[2016-08-10 07:46] LABS: GLUCOSE,POINT OF CARE 109 MG/DL (70-110)
[2016-08-10] MEDS: METOPROLOL TARTRATE 50 MG TABLET PO SCH ×2 (08:03→20:25)
[2016-08-10] MEDS: RisperiDONE 1 MG TABLET PO SCH (08:03)
[2016-08-10] MEDS: FAMOTIDINE 20 MG TABLET PO SCH ×2 (08:03→20:23)
[2016-08-10] MEDS: LOSARTAN POTASSIUM 50 MG TABLET PO SCH (08:03)
[2016-08-10] MEDS: LEVOTHYROXINE SODIUM 125 MCG TABLET PO SCH (08:03)
[2016-08-10] MEDS: BENZTROPINE MESYLATE 1 MG TABLET PO SCH ×2 (08:03→20:23)
[2016-08-10] MEDS: GABAPENTIN 300 MG CAPSULE PO SCH ×3 (08:04→20:22)
[2016-08-10] MEDS: OXYGEN THERAPY IH SCH (08:04)
[2016-08-10] MEDS: BACLOFEN 10 MG TABLET PO SCH ×2 (08:04→20:22)
[2016-08-10] MEDS: FLUTICASONE/VILANTEROL 200-25 MCG/INH INHALER [14] IH SCH (08:04)
[2016-08-10] MEDS: HYDROmorphone 2 MG/ML SYRINGE IVP PRN ×3 (08:05→22:43)
[2016-08-10 09:17] LABS: BASOPHILS # (AUTO) 0.02 K/uL (0.00-0.20); BASOPHILS % (AUTO) 0.3 % (0.0-2.0); EOSINOPHILS # (AUTO) 0.07 K/uL (0.00-0.70); EOSINOPHILS % (AUTO) 1.01 % (1.0-6.0); HEMATOCRIT 39.3 % (36-46); HEMOGLOBIN 12.8 g/dL (12.0-16.0); LYMPHOCYTES # (AUTO) 0.7 K/uL (1.0-4.8); LYMPHOCYTES % (AUTO) 9.5 % (22.0-44.0); MEAN CORPUSCULAR HEMOGLOBIN 29.6 pg (26.0-34.0); MEAN CORPUSCULAR HGB CONC 32.5 G/dL (31.0-37.0); MEAN CORPUSCULAR VOLUME 91 fL (80-100); MONOCYTES # (AUTO) 0.6 K/uL (0.1-1.0); MONOCYTES % (AUTO) 8.5 % (2.0-9.0); NEUTROPHILS # (AUTO) 5.9 K/uL (1.8-7.7); NEUTROPHILS % (AUTO) 80.7 % (40.0-70.0); PLATELET COUNT (AUTO) 284 K/uL (150-450); RED BLOOD CELL COUNT(AUTO) 4.32 MIL/uL (4.00-5.20); RED CELL DISTRIBUTION WIDTH 16.4 % (11.5-14.5); WHITE BLOOD COUNT (AUTO) 7.4 K/uL (4.5-11.0)
[2016-08-10 09:28] LABS: ANION GAP 5 mmol/L (8-16); CALCIUM, TOTAL 8.7 mg/dL (8.8-10.5); CARBON DIOXIDE 32 mmol/L (22-29); CHLORIDE 99 mmol/L (98-107); CREATININE 0.75 mg/dL (0.60-1.30); GLOMERULAR FILTR. RATE CALC > 60 mL/min (>60); SODIUM SERUM 136 mmol/L (136-145); UREA NITROGEN, BLOOD 6 mg/dL (7-18)
[2016-08-10] MEDS: METOCLOPRAMIDE HCL 5 MG/ML 2 ML VIAL IVP PRN ×2 (10:14→18:54)
[2016-08-10 11:47] LABS: GLUCOSE,POINT OF CARE 154 MG/DL (70-110)
[2016-08-10] MEDS: INSULIN ASPART 100 UNITS/ML SQ PRN ×3 (12:05→20:28)
[2016-08-10] MEDS: SIMVASTATIN 20 MG TABLET PO SCH (20:22)
[2016-08-10] MEDS: MIRTAZAPINE 30 MG TABLET PO SCH (20:22)
[2016-08-10] MEDS: ZOLPIDEM TARTRATE 5 MG TABLET PO SCH (20:23)
[2016-08-10] MEDS: TraZODone HCL 100 MG TABLET PO SCH (20:23)
[2016-08-10] MEDS: QUEtiapine FUMARATE 200 MG TABLET PO SCH (20:24)
[2016-08-11] MEDS: ONDANSETRON HCL 4 MG/2 ML VIAL IVP PRN (00:20)
[2016-08-11 00:42] LABS: GLUCOSE,POINT OF CARE 125 MG/DL (70-110)
[2016-08-11 04:08] VITALS: BP 143/84
[2016-08-11] MEDS: SODIUM CHLORIDE 0.9% 1,000 ML IV SCH ×2 (04:21→15:50)
[2016-08-11] MEDS ORDERED: MAGNESIUM SULFATE 2 GM in DEXTROSE 5%-WATER 50 ML IV PRN (05:30)
[2016-08-11] MEDS ORDERED: MAGNESIUM SULFATE 4 GM/WATER 100 ML IV PRN (05:30)
[2016-08-11] MEDS: LEVOTHYROXINE SODIUM 125 MCG TABLET PO SCH (06:10)
[2016-08-11] MEDS: BACLOFEN 10 MG TABLET PO SCH ×2 (08:04→20:58)
[2016-08-11] MEDS: METOPROLOL TARTRATE 50 MG TABLET PO SCH ×2 (08:04→20:57)
[2016-08-11] MEDS: GABAPENTIN 300 MG CAPSULE PO SCH ×3 (08:04→20:58)
[2016-08-11] MEDS: BENZTROPINE MESYLATE 1 MG TABLET PO SCH ×2 (08:04→20:58)
[2016-08-11] MEDS: FAMOTIDINE 20 MG TABLET PO SCH ×2 (08:04→20:58)
[2016-08-11 08:05] LABS: ALBUMIN 2.1 g/dL (3.4-5.0); CALCIUM, TOTAL 8.7 mg/dL (8.8-10.5); CREATININE 1.08 mg/dL (0.60-1.30); MAGNESIUM 1.5 mg/dL (1.80-2.40); PHOSPHORUS 4.3 mg/dL (2.5-4.9); POTASSIUM 3.8 mmol/L (3.5-5.1)
[2016-08-11] MEDS: LOSARTAN POTASSIUM 50 MG TABLET PO SCH (08:05)
[2016-08-11] MEDS: RisperiDONE 1 MG TABLET PO SCH (08:05)
[2016-08-11] MEDS: FLUTICASONE/VILANTEROL 200-25 MCG/INH INHALER [14] IH SCH (08:05)
[2016-08-11] MEDS: OXYGEN THERAPY IH SCH (08:05)
[2016-08-11 08:14] VITALS: BP 136/72
[2016-08-11 08:18] LABS: BASOPHILS % (AUTO) 0.1 % (0.0-2.0); EOSINOPHILS % (AUTO) 0.1 % (1.0-6.0); HEMATOCRIT 38.7 % (36-46); HEMOGLOBIN 12.4 g/dL (12.0-16.0); LYMPHOCYTES # (AUTO) 0.5 K/uL (1.0-4.8); LYMPHOCYTES % (AUTO) 10.9 % (22.0-44.0); MEAN CORPUSCULAR VOLUME 91 fL (80-100); MONOCYTES # (AUTO) 0.8 K/uL (0.1-1.0); MONOCYTES % (AUTO) 18.2 % (2.0-9.0); NEUTROPHILS # (AUTO) 3.2 K/uL (1.8-7.7); NEUTROPHILS % (AUTO) 70.7 % (40.0-70.0); PLATELET COUNT (AUTO) 340 K/uL (150-450); RED BLOOD CELL COUNT(AUTO) 4.27 MIL/uL (4.00-5.20); RED CELL DISTRIBUTION WIDTH 16.5 % (11.5-14.5); WHITE BLOOD COUNT (AUTO) 4.6 K/uL (4.5-11.0)
[2016-08-11] MEDS: HYDROmorphone 2 MG/ML SYRINGE IVP PRN ×3 (08:29→18:18)
[2016-08-11] MEDS: INSULIN ASPART 100 UNITS/ML SQ PRN ×2 (11:35→16:35)
[2016-08-11 11:45] VITALS: BP 138/74
[2016-08-11 15:45] VITALS: BP 103/50
[2016-08-11 16:42] LABS: GLUCOSE,POINT OF CARE 114 MG/DL (70-110)
[2016-08-11 19:46] VITALS: BP 98/54
[2016-08-11] MEDS: SIMVASTATIN 20 MG TABLET PO SCH (20:57)
[2016-08-11] MEDS: ZOLPIDEM TARTRATE 5 MG TABLET PO SCH (20:58)
[2016-08-11] MEDS: MIRTAZAPINE 30 MG TABLET PO SCH (20:59)
[2016-08-11] MEDS: TraZODone HCL 100 MG TABLET PO SCH (20:59)
[2016-08-11] MEDS: QUEtiapine FUMARATE 200 MG TABLET PO SCH (20:59)
[2016-08-11 23:47] LABS: GLUCOSE,POINT OF CARE 113 MG/DL (70-110)
[2016-08-12] VITALS (7 sets, daily range): BP systolic 102–143; BP diastolic 56–69
[2016-08-12] MEDS: SODIUM CHLORIDE 0.9% 1,000 ML IV SCH ×2 (01:51→23:36)
[2016-08-12] MEDS: LEVOTHYROXINE SODIUM 125 MCG TABLET PO SCH (05:38)
[2016-08-12] MEDS: HYDROCODONE/ACETAMINOPHEN 10-325 MG TABLET PO PRN ×3 (05:38→23:34)
[2016-08-12 06:16] LABS: BASOPHILS # (AUTO) 0.01 K/uL (0.00-0.20); BASOPHILS % (AUTO) 0.3 % (0.0-2.0); EOSINOPHILS # (AUTO) 0.19 K/uL (0.00-0.70); HEMATOCRIT 34.5 % (36-46); HEMOGLOBIN 11.3 g/dL (12.0-16.0); LYMPHOCYTES # (AUTO) 0.7 K/uL (1.0-4.8); LYMPHOCYTES % (AUTO) 18.2 % (22.0-44.0); MEAN CORPUSCULAR HEMOGLOBIN 29.4 pg (26.0-34.0); MEAN CORPUSCULAR HGB CONC 32.7 G/dL (31.0-37.0); MEAN CORPUSCULAR VOLUME 90 fL (80-100); MONOCYTES # (AUTO) 0.7 K/uL (0.1-1.0); MONOCYTES % (AUTO) 16.5 % (2.0-9.0); NEUTROPHILS # (AUTO) 2.4 K/uL (1.8-7.7); NEUTROPHILS % (AUTO) 60.2 % (40.0-70.0); PLATELET COUNT (AUTO) 307 K/uL (150-450); RED BLOOD CELL COUNT(AUTO) 3.84 MIL/uL (4.00-5.20); RED CELL DISTRIBUTION WIDTH 16.5 % (11.5-14.5)
[2016-08-12 06:33] LABS: ANION GAP 5 mmol/L (8-16); CALCIUM, TOTAL 8.1 mg/dL (8.8-10.5); CARBON DIOXIDE 34 mmol/L (22-29); CHLORIDE 97 mmol/L (98-107); CREATININE 0.88 mg/dL (0.60-1.30); GLOMERULAR FILTR. RATE CALC > 60 mL/min (>60); POTASSIUM 3.5 mmol/L (3.5-5.1); SODIUM SERUM 136 mmol/L (136-145); UREA NITROGEN, BLOOD 24 mg/dL (7-18)
[2016-08-12 06:52] LABS: GLUCOSE,POINT OF CARE 124 MG/DL (70-110)
[2016-08-12 06:52] LABS: GLUCOSE,POINT OF CARE 93 MG/DL (70-110)
[2016-08-12] MEDS: FLUTICASONE/VILANTEROL 200-25 MCG/INH INHALER [14] IH SCH (08:49)
[2016-08-12] MEDS: BENZTROPINE MESYLATE 1 MG TABLET PO SCH ×2 (08:50→20:25)
[2016-08-12] MEDS: LOSARTAN POTASSIUM 50 MG TABLET PO SCH (08:50)
[2016-08-12] MEDS: BACLOFEN 10 MG TABLET PO SCH ×2 (08:50→20:26)
[2016-08-12] MEDS: GABAPENTIN 300 MG CAPSULE PO SCH ×3 (08:51→20:25)
[2016-08-12] MEDS: RisperiDONE 1 MG TABLET PO SCH (08:51)
[2016-08-12] MEDS: FAMOTIDINE 20 MG TABLET PO SCH ×2 (08:51→20:25)
[2016-08-12] MEDS: METOPROLOL TARTRATE 50 MG TABLET PO SCH ×2 (08:51→20:25)
[2016-08-12] MEDS: OXYGEN THERAPY IH SCH (08:52)
[2016-08-12] MEDS ORDERED: DIATRIZOATE MEGLU/SOD 660/100 MG/ML 120 ML BOTTLE ONE (10:48)
[2016-08-12 10:59] LABS: GLUCOSE COMMENT 1 Received Meds; GLUCOSE,POINT OF CARE 175 MG/DL (70-110)
[2016-08-12 10:59] LABS: GLUCOSE COMMENT 1 Received Meds; GLUCOSE,POINT OF CARE 152 MG/DL (70-110)
[2016-08-12 10:59] LABS: GLUCOSE,POINT OF CARE 148 MG/DL (70-110)
[2016-08-12 10:59] LABS: GLUCOSE,POINT OF CARE 113 MG/DL (70-110)
[2016-08-12 13:17] LABS: GLUCOSE,POINT OF CARE 80 MG/DL (70-110)
[2016-08-12 17:37] LABS: GLUCOSE,POINT OF CARE 71 MG/DL (70-110)
[2016-08-12] MEDS: SIMVASTATIN 20 MG TABLET PO SCH (20:25)
[2016-08-12] MEDS: ZOLPIDEM TARTRATE 5 MG TABLET PO SCH (20:25)
[2016-08-12] MEDS: TraZODone HCL 100 MG TABLET PO SCH (20:26)
[2016-08-12] MEDS: QUEtiapine FUMARATE 200 MG TABLET PO SCH (20:27)
[2016-08-12] MEDS: MIRTAZAPINE 30 MG TABLET PO SCH (20:27)
[2016-08-13 04:17] LABS: GLUCOSE,POINT OF CARE 96 MG/DL (70-110)
[2016-08-13 05:40] VITALS: BP 142/75
[2016-08-13] MEDS: LEVOTHYROXINE SODIUM 125 MCG TABLET PO SCH (06:33)
[2016-08-13 06:41] LABS: BASOPHILS % (AUTO) 0.2 % (0.0-2.0); EOSINOPHILS % (AUTO) 3.3 % (1.0-6.0); HEMATOCRIT 35.7 % (36-46); HEMOGLOBIN 11.5 g/dL (12.0-16.0); LYMPHOCYTES # (AUTO) 0.6 K/uL (1.0-4.8); LYMPHOCYTES % (AUTO) 10.2 % (22.0-44.0); MEAN CORPUSCULAR HEMOGLOBIN 29.3 pg (26.0-34.0); MEAN CORPUSCULAR HGB CONC 32.3 G/dL (31.0-37.0); MEAN CORPUSCULAR VOLUME 91 fL (80-100); MONOCYTES # (AUTO) 0.7 K/uL (0.1-1.0); MONOCYTES % (AUTO) 10.8 % (2.0-9.0); NEUTROPHILS # (AUTO) 4.5 K/uL (1.8-7.7); NEUTROPHILS % (AUTO) 75.5 % (40.0-70.0); PLATELET COUNT (AUTO) 323 K/uL (150-450); RED BLOOD CELL COUNT(AUTO) 3.94 MIL/uL (4.00-5.20); RED CELL DISTRIBUTION WIDTH 16.4 % (11.5-14.5)
[2016-08-13 06:52] LABS: GLUCOSE,POINT OF CARE 136 MG/DL (70-110)
[2016-08-13 07:06] LABS: ANION GAP 4 mmol/L (8-16); CALCIUM, TOTAL 8.1 mg/dL (8.8-10.5); CARBON DIOXIDE 35 mmol/L (22-29); CHLORIDE 98 mmol/L (98-107); CREATININE 0.72 mg/dL (0.60-1.30); GLOMERULAR FILTR. RATE CALC > 60 mL/min (>60); POTASSIUM 3.2 mmol/L (3.5-5.1); SODIUM SERUM 137 mmol/L (136-145); UREA NITROGEN, BLOOD 17 mg/dL (7-18)
[2016-08-13 08:04] VITALS: BP 136/63
[2016-08-13] MEDS: METOPROLOL TARTRATE 50 MG TABLET PO SCH ×2 (08:46→20:28)
[2016-08-13] MEDS: BENZTROPINE MESYLATE 1 MG TABLET PO SCH ×2 (08:46→20:28)
[2016-08-13] MEDS: LOSARTAN POTASSIUM 50 MG TABLET PO SCH (08:46)
[2016-08-13] MEDS: RisperiDONE 1 MG TABLET PO SCH (08:46)
[2016-08-13] MEDS: BACLOFEN 10 MG TABLET PO SCH ×2 (08:46→20:30)
[2016-08-13] MEDS: GABAPENTIN 300 MG CAPSULE PO SCH ×3 (08:46→20:28)
[2016-08-13] MEDS: FAMOTIDINE 20 MG TABLET PO SCH ×2 (08:46→20:28)
[2016-08-13] MEDS: FLUTICASONE/VILANTEROL 200-25 MCG/INH INHALER [14] IH SCH (08:49)
[2016-08-13 11:23] LABS: GLUCOSE,POINT OF CARE 128 MG/DL (70-110)
[2016-08-13 11:34] VITALS: BP 122/79
[2016-08-13 15:32] VITALS: BP 137/71
[2016-08-13] MEDS: OXYGEN THERAPY IH SCH (16:31)
[2016-08-13] MEDS: INSULIN ASPART 100 UNITS/ML SQ PRN (17:31)
[2016-08-13 19:23] VITALS: BP 132/68
[2016-08-13 19:37] LABS: GLUCOSE,POINT OF CARE 149 MG/DL (70-110)
[2016-08-13] MEDS: QUEtiapine FUMARATE 200 MG TABLET PO SCH (20:28)
[2016-08-13] MEDS: ZOLPIDEM TARTRATE 5 MG TABLET PO SCH (20:28)
[2016-08-13] MEDS: MIRTAZAPINE 30 MG TABLET PO SCH (20:28)
[2016-08-13] MEDS: TraZODone HCL 100 MG TABLET PO SCH (20:29)
[2016-08-13] MEDS: SIMVASTATIN 20 MG TABLET PO SCH (20:30)
[2016-08-13 23:13] VITALS: BP 128/74
[2016-08-14 04:23] VITALS: BP 122/67
[2016-08-14 05:02] LABS: GLUCOSE,POINT OF CARE 109 MG/DL (70-110)
[2016-08-14 06:13] LABS: BASOPHILS % (AUTO) 0.1 % (0.0-2.0); EOSINOPHILS % (AUTO) 2.3 % (1.0-6.0); HEMATOCRIT 35.8 % (36-46); HEMOGLOBIN 11.4 g/dL (12.0-16.0); LYMPHOCYTES % (AUTO) 12.2 % (22.0-44.0); MEAN CORPUSCULAR HGB CONC 31.9 G/dL (31.0-37.0); MEAN CORPUSCULAR VOLUME 91 fL (80-100); MONOCYTES # (AUTO) 0.7 K/uL (0.1-1.0); MONOCYTES % (AUTO) 8.1 % (2.0-9.0); NEUTROPHILS # (AUTO) 6.3 K/uL (1.8-7.7); NEUTROPHILS % (AUTO) 77.3 % (40.0-70.0); PLATELET COUNT (AUTO) 335 K/uL (150-450); RED BLOOD CELL COUNT(AUTO) 3.94 MIL/uL (4.00-5.20); RED CELL DISTRIBUTION WIDTH 15.9 % (11.5-14.5); WHITE BLOOD COUNT (AUTO) 8.2 K/uL (4.5-11.0)
[2016-08-14 06:22] LABS: ANION GAP 6 mmol/L (8-16); CALCIUM, TOTAL 7.7 mg/dL (8.8-10.5); CARBON DIOXIDE 32 mmol/L (22-29); CHLORIDE 98 mmol/L (98-107); GLOMERULAR FILTR. RATE CALC > 60 mL/min (>60); POTASSIUM 3.5 mmol/L (3.5-5.1); SODIUM SERUM 136 mmol/L (136-145); UREA NITROGEN, BLOOD 11 mg/dL (7-18)
[2016-08-14] MEDS: LEVOTHYROXINE SODIUM 125 MCG TABLET PO SCH (06:27)
[2016-08-14 07:42] LABS: GLUCOSE,POINT OF CARE 106 MG/DL (70-110)
[2016-08-14] MEDS: RisperiDONE 1 MG TABLET PO SCH (08:50)
[2016-08-14] MEDS: FAMOTIDINE 20 MG TABLET PO SCH ×2 (08:50→21:00)
[2016-08-14] MEDS: GABAPENTIN 300 MG CAPSULE PO SCH ×3 (08:50→21:00)
[2016-08-14] MEDS: LOSARTAN POTASSIUM 50 MG TABLET PO SCH (08:50)
[2016-08-14] MEDS: BENZTROPINE MESYLATE 1 MG TABLET PO SCH ×2 (08:50→21:00)
[2016-08-14] MEDS: METOPROLOL TARTRATE 50 MG TABLET PO SCH ×2 (08:51→21:00)
[2016-08-14] MEDS: BACLOFEN 10 MG TABLET PO SCH ×2 (08:51→21:02)
[2016-08-14] MEDS: FLUTICASONE/VILANTEROL 200-25 MCG/INH INHALER [14] IH SCH (09:31)
[2016-08-14] MEDS: HYDROCODONE/ACETAMINOPHEN 10-325 MG TABLET PO PRN ×2 (09:31→18:04)
[2016-08-14 11:40] VITALS: BP 123/56
[2016-08-14 13:07] LABS: GLUCOSE,POINT OF CARE 108 MG/DL (70-110)
[2016-08-14 17:37] LABS: GLUCOSE,POINT OF CARE 89 MG/DL (70-110)
[2016-08-14] MEDS: OXYGEN THERAPY IH SCH ×2 (20:00→23:14)
[2016-08-14 20:13] VITALS: BP 106/64
[2016-08-14] MEDS: SIMVASTATIN 20 MG TABLET PO SCH (21:00)
[2016-08-14] MEDS: ZOLPIDEM TARTRATE 5 MG TABLET PO SCH (21:00)
[2016-08-14 23:10] VITALS: BP 102/65
[2016-08-14] MEDS: QUEtiapine FUMARATE 200 MG TABLET PO SCH (23:12)
[2016-08-14] MEDS: TraZODone HCL 100 MG TABLET PO SCH (23:13)
[2016-08-14] MEDS: MIRTAZAPINE 30 MG TABLET PO SCH (23:14)
[2016-08-15] MEDS: SODIUM CHLORIDE 0.9% 1,000 ML IV SCH (02:54)
[2016-08-15 04:22] LABS: GLUCOSE,POINT OF CARE 91 MG/DL (70-110)
[2016-08-15 05:05] VITALS: BP 125/68
[2016-08-15] MEDS: LEVOTHYROXINE SODIUM 125 MCG TABLET PO SCH (06:12)
[2016-08-15 07:19] LABS: BASOPHILS % (AUTO) 0.1 % (0.0-2.0); EOSINOPHILS # (AUTO) 0.18 K/uL (0.00-0.70); HEMATOCRIT 35.9 % (36-46); HEMOGLOBIN 11.8 g/dL (12.0-16.0); LYMPHOCYTES # (AUTO) 1.1 K/uL (1.0-4.8); LYMPHOCYTES % (AUTO) 13.9 % (22.0-44.0); MEAN CORPUSCULAR HEMOGLOBIN 29.9 pg (26.0-34.0); MEAN CORPUSCULAR HGB CONC 32.9 G/dL (31.0-37.0); MEAN CORPUSCULAR VOLUME 91 fL (80-100); MONOCYTES # (AUTO) 0.6 K/uL (0.1-1.0); MONOCYTES % (AUTO) 8.3 % (2.0-9.0); NEUTROPHILS # (AUTO) 5.9 K/uL (1.8-7.7); NEUTROPHILS % (AUTO) 75.4 % (40.0-70.0); PLATELET COUNT (AUTO) 327 K/uL (150-450); RED BLOOD CELL COUNT(AUTO) 3.96 MIL/uL (4.00-5.20); RED CELL DISTRIBUTION WIDTH 16.1 % (11.5-14.5); WHITE BLOOD COUNT (AUTO) 7.8 K/uL (4.5-11.0)
[2016-08-15 07:22] LABS: GLUCOSE,POINT OF CARE 79 MG/DL (70-110)
[2016-08-15 07:26] LABS: ANION GAP 6 mmol/L (8-16); CALCIUM, TOTAL 7.6 mg/dL (8.8-10.5); CARBON DIOXIDE 31 mmol/L (22-29); CHLORIDE 99 mmol/L (98-107); CREATININE 0.71 mg/dL (0.60-1.30); GLOMERULAR FILTR. RATE CALC > 60 mL/min (>60); POTASSIUM 3.2 mmol/L (3.5-5.1); SODIUM SERUM 136 mmol/L (136-145); UREA NITROGEN, BLOOD 7 mg/dL (7-18)
[2016-08-15 08:00] VITALS: BP 136/67
[2016-08-15 08:01] VITALS: BP 136/67
[2016-08-15] MEDS: LOSARTAN POTASSIUM 50 MG TABLET PO SCH (08:47)
[2016-08-15] MEDS: RisperiDONE 1 MG TABLET PO SCH (08:47)
[2016-08-15] MEDS: METOPROLOL TARTRATE 50 MG TABLET PO SCH (08:47)
[2016-08-15] MEDS: FAMOTIDINE 20 MG TABLET PO SCH (08:47)
[2016-08-15] MEDS: GABAPENTIN 300 MG CAPSULE PO SCH ×2 (08:47→15:41)
[2016-08-15] MEDS: BACLOFEN 10 MG TABLET PO SCH (08:47)
[2016-08-15] MEDS: BENZTROPINE MESYLATE 1 MG TABLET PO SCH (08:47)
[2016-08-15] MEDS: OXYGEN THERAPY IH SCH (08:48)
[2016-08-15] MEDS: FLUTICASONE/VILANTEROL 200-25 MCG/INH INHALER [14] IH SCH (08:48)
[2016-08-15] MEDS: POTASSIUM CHL 10 MEQ/WATER 50 ML IV PRN ×3 (10:18→12:09)
[2016-08-15 12:01] VITALS: BP 144/77
[2016-08-15] MEDS: INSULIN ASPART 100 UNITS/ML SQ PRN (12:03)
[2016-08-15 15:45] VITALS: BP 142/78
[2016-08-15 20:01] LABS: GLUCOSE,POINT OF CARE 84 MG/DL (70-110)
[2016-09-06] MEDS ORDERED: PANT40TA25 PO (15:02)
[2016-09-06] MEDS ORDERED: DSS100 PO (15:02)
[2016-09-06] MEDS ORDERED: PERCT PO (15:03)
[2016-09-06] MEDS ORDERED: [UNRECOGNIZED DRUG - CODE] IV (15:05)
[2016-09-14] MEDS ORDERED: SIMV-260 PO (10:51)
[2016-09-14] MEDS ORDERED: PIPE3.377 IV (10:51)
== END 2016-08-15 17:15 | DRG 336 ==
LOC: 6N 16:25 → 4E 08-04 08:00 → 6N 08-07 06:27
PROVIDERS: ADMIT Internal Medicine; ATTEND Internal Medicine
PROC: 0DNW0ZZ Release Peritoneum, Open Approach (ICD-10-PCS; 2016-08-06)
PROC: 0WUF0JZ Supplement Abdominal Wall with Synthetic Substitute, Open Approach (ICD-10-PCS; principal; 2016-08-06 07:30)
DX: K43.6 Other and unspecified ventral hernia with obstruction, without gangrene (principal); E87.1 Hypo-osmolality and hyponatremia; Z68.42 Body mass index [BMI] 45.0-49.9, adult; K43.0 Incisional hernia with obstruction, without gangrene; N18.3 Chronic kidney disease, stage 3 (moderate); J44.9 Chronic obstructive pulmonary disease, unspecified; E66.01 Morbid (severe) obesity due to excess calories; J30.9 Allergic rhinitis, unspecified; F17.210 Nicotine dependence, cigarettes, uncomplicated; Z79.899 Other long term (current) drug therapy; K59.00 Constipation, unspecified; Z83.3 Family history of diabetes mellitus; I13.10 Hypertensive heart and chronic kidney disease without heart failure, with stage 1 through stage 4 chronic kidney disease, or unspecified chronic kidney disease; Z90.13 Acquired absence of bilateral breasts and nipples; E86.0 Dehydration; Z90.49 Acquired absence of other specified parts of digestive tract; K21.9 Gastro-esophageal reflux disease without esophagitis; E03.9 Hypothyroidism, unspecified; E11.22 Type 2 diabetes mellitus with diabetic chronic kidney disease; D64.9 Anemia, unspecified; Z93.3 Colostomy status; K66.0 Peritoneal adhesions (postprocedural) (postinfection); Z85.038 Personal history of other malignant neoplasm of large intestine; Z85.3 Personal history of malignant neoplasm of breast; Z81.1 Family history of alcohol abuse and dependence; K31.84 Gastroparesis
CPT/HCPCS: 71020; 74000; 74022; 74177; 74247; 82962; 83735; 84100; 86850; 86900; 86901; 87070; 87081; 87205; 88302; 93005; 93306; 94761; 97116; 97163; 97167; 97530; 97535; J0330; J0690; J1170; J1650; J2250; J2370; J2405; J2704; J2765; J3010; J3475; J3480; J3490; J7030; J7040; J7050; J7060; J7120

== ENCOUNTER 2016-09-02 17:16 | Emergency (ER) | payer MEDICARE, SELFPAY ==
[~2016-09-02] VITALS: Ht 149.9 cm; Wt 98.2 kg
[2016-09-02 20:00] VITALS: BP 132/82
[2016-09-06] MEDS ORDERED: PANT40TA25 PO (15:02)
[2016-09-06] MEDS ORDERED: DSS100 PO (15:02)
[2016-09-06] MEDS ORDERED: PERCT PO (15:03)
[2016-09-06] MEDS ORDERED: [UNRECOGNIZED DRUG - CODE] IV (15:05)
== END 2016-09-02 20:49 | disposition home or self-care (01) ==
LOC: EMS 17:20
DX: Z48.89 Encounter for other specified surgical aftercare (principal); J45.909 Unspecified asthma, uncomplicated; E11.9 Type 2 diabetes mellitus without complications; I10 Essential (primary) hypertension; E78.00 Pure hypercholesterolemia, unspecified; F17.210 Nicotine dependence, cigarettes, uncomplicated; Z79.4 Long term (current) use of insulin
CPT/HCPCS: 82962; 99283

== ENCOUNTER 2016-09-07 14:55 | Emergency (ER) | payer MEDICARE ==
[~2016-09-07] VITALS: Ht 149.9 cm; Wt 102.3 kg
[~2016-09-07 14:55] MED LIST changes: +DSS100 PO; +PANT40TA25 PO; +PERCT PO; +[UNRECOGNIZED DRUG - CODE] IV
[2016-09-07 17:40] VITALS: BP 118/67
== END 2016-09-07 17:46 | disposition home or self-care (01) ==
LOC: EMS 14:59
DX: T85.9XXA Unspecified complication of internal prosthetic device, implant and graft, initial encounter (principal); J45.909 Unspecified asthma, uncomplicated; E11.9 Type 2 diabetes mellitus without complications; E78.00 Pure hypercholesterolemia, unspecified; I10 Essential (primary) hypertension; Z79.4 Long term (current) use of insulin
CPT/HCPCS: 99283

== ENCOUNTER 2017-01-06 12:02 | Emergency (ER) | payer MEDICARE, MEDICAID ==
[~2017-01-06] VITALS: Ht 149.9 cm; Wt 98.6 kg
[~2017-01-06 12:02] MED LIST changes: -ESOM20CA31 PO; +PIPE3.377 IV; +SIMV-260 PO; -SIMV-261 PO; -[UNRECOGNIZED DRUG - CODE] IV
[2017-01-06 12:22] LABS: GLUCOSE,POINT OF CARE 95 MG/DL (70-110)
[2017-01-06 14:24] VITALS: BP 128/82
[2017-01-06 14:55] LABS: BASOPHILS # (AUTO) 0.06 K/uL (0.00-0.20); BASOPHILS % (AUTO) 0.6 % (0.0-2.0); EOSINOPHILS # (AUTO) 0.11 K/uL (0.00-0.70); HEMATOCRIT 46.4 % (36-46); HEMOGLOBIN 15.2 g/dL (12.0-16.0); LYMPHOCYTES # (AUTO) 2.2 K/uL (1.0-4.8); LYMPHOCYTES % (AUTO) 21.4 % (22.0-44.0); MEAN CORPUSCULAR HEMOGLOBIN 28.4 pg (26.0-34.0); MEAN CORPUSCULAR HGB CONC 32.7 G/dL (31.0-37.0); MEAN CORPUSCULAR VOLUME 87 fL (80-100); MONOCYTES # (AUTO) 0.4 K/uL (0.1-1.0); MONOCYTES % (AUTO) 4.3 % (2.0-9.0); NEUTROPHILS # (AUTO) 7.4 K/uL (1.8-7.7); NEUTROPHILS % (AUTO) 72.7 % (40.0-70.0); PLATELET COUNT (AUTO) 348 K/uL (150-450); RED BLOOD CELL COUNT(AUTO) 5.35 MIL/uL (4.00-5.20); WHITE BLOOD COUNT (AUTO) 10.2 K/uL (4.5-11.0)
[2017-01-06 15:03] LABS: CALCIUM, TOTAL 9.3 mg/dL (8.8-10.5); CREATININE 0.96 mg/dL (0.60-1.30); POTASSIUM 4.2 mmol/L (3.5-5.1)
[2017-01-06 15:09] LABS: BILIRUBIN,TOTAL 0.3 mg/dL (0.1-1.0); TOTAL PROTEIN, SERUM 7.8 g/dL (6.4-8.2)
[2017-01-06 15:11] LABS: LACTIC ACID 0.4 mmol/L (0.4-2.0)
[2017-01-06] MEDS ORDERED: DiphenhydrAMINE HCL 25 MG CAPSULE PO ONE (15:15)
[2017-01-06 15:37] LABS: RBC MORPHOLOGY COMMENT ABNORMAL RBC MORPH
[2017-01-06] MEDS ORDERED: CEPHALEXIN MONOHYDRATE 500 MG CAPSULE PO ONE (16:15)
== END 2017-01-06 16:26 | disposition home or self-care (01) ==
LOC: EMS 12:04
DX: L03.114 Cellulitis of left upper limb (principal); F31.9 Bipolar disorder, unspecified; E11.9 Type 2 diabetes mellitus without complications; J45.909 Unspecified asthma, uncomplicated; I10 Essential (primary) hypertension; E78.00 Pure hypercholesterolemia, unspecified; F41.9 Anxiety disorder, unspecified; F17.210 Nicotine dependence, cigarettes, uncomplicated; M19.90 Unspecified osteoarthritis, unspecified site; Z93.3 Colostomy status
CPT/HCPCS: 82962; 83605; 87040; 93005; 93971; 99285; 99406

== ENCOUNTER 2017-01-16 11:06 | Emergency (ER) | payer MEDICARE, MEDICAID ==
[~2017-01-16] VITALS: Ht 149.9 cm; Wt 89.5 kg
[~2017-01-16 11:06] MED LIST changes: -PIPE3.377 IV
[2017-01-16] MEDS ORDERED: QUET200T PO (11:22)
[2017-01-16] MEDS ORDERED: TRAZ-147 PO (11:22)
[2017-01-16] MEDS ORDERED: HALO5 PO (11:22)
[2017-01-16] MEDS ORDERED: HALO2 PO (11:22)
[2017-01-16] MEDS ORDERED: LORA1TAB3 PO (11:22)
[2017-01-16] MEDS ORDERED: GABA-529 PO (11:22)
[2017-01-16 12:23] LABS: GLUCOSE,POINT OF CARE 84 MG/DL (70-110)
[2017-01-16] MEDS ORDERED: DiphenhydrAMINE HCL 50 MG CAPSULE PO ONE (12:45)
[2017-01-16] MEDS ORDERED: PredniSONE 20 MG TABLET PO ONE (12:45)
[2017-01-16 13:17] VITALS: BP 132/87
== END 2017-01-16 13:18 | disposition home or self-care (01) ==
LOC: EMS 11:08
DX: L50.9 Urticaria, unspecified (principal); J44.9 Chronic obstructive pulmonary disease, unspecified; J45.909 Unspecified asthma, uncomplicated; E11.9 Type 2 diabetes mellitus without complications; E78.00 Pure hypercholesterolemia, unspecified; I10 Essential (primary) hypertension; F17.210 Nicotine dependence, cigarettes, uncomplicated
CPT/HCPCS: 82962; 99283; J7512

== ENCOUNTER 2017-09-11 10:44 | Emergency (ER) | payer MEDICARE, OTHER ==
[~2017-09-11] VITALS: Ht 149.9 cm; Wt 86.4 kg
[~2017-09-11 10:44] MED LIST changes: +GABA-529 PO; -GABA-531 PO; +HALO2 PO; +HALO5TAB2 PO; +LORA1TAB3 PO; -METF500T4 PO; +METF500T6 PO; +QUET200T PO
[2017-09-11] MEDS ORDERED: HYDR-309 PO (11:01)
[2017-09-11] MEDS ORDERED: KETOROLAC TROMETHAMINE 10 MG TABLET PO ONE (12:15)
[2017-09-11 15:00] VITALS: BP 119/72
== END 2017-09-11 15:00 | disposition home or self-care (01) ==
LOC: EMS 10:48
DX: S06.0X9A Concussion with loss of consciousness of unspecified duration, initial encounter (principal); S13.4XXA Sprain of ligaments of cervical spine, initial encounter; S40.012A Contusion of left shoulder, initial encounter; S70.01XA Contusion of right hip, initial encounter; J45.909 Unspecified asthma, uncomplicated; J44.9 Chronic obstructive pulmonary disease, unspecified; E11.9 Type 2 diabetes mellitus without complications; E78.00 Pure hypercholesterolemia, unspecified; I10 Essential (primary) hypertension; M19.90 Unspecified osteoarthritis, unspecified site; F17.210 Nicotine dependence, cigarettes, uncomplicated; Z88.5 Allergy status to narcotic agent; W01.0XXA Fall on same level from slipping, tripping and stumbling without subsequent striking against object, initial encounter; Y93.01 Activity, walking, marching and hiking; Y92.89 Other specified places as the place of occurrence of the external cause; Y99.8 Other external cause status
CPT/HCPCS: 70450; 72125; 73502; 99284

== ENCOUNTER 2017-10-01 10:53 | Emergency (ER) | payer MEDICARE, OTHER ==
[~2017-10-01] VITALS: Ht 149.9 cm; Wt 88.2 kg
[~2017-10-01 10:53] MED LIST changes: -BACL10TA PO; +HYDR-309 PO; -INSNOV SQ; -PERCT PO; -TRAZ-147 PO; +TRAZ-220 PO
[2017-10-01] MEDS ORDERED: SODIUM CHLORIDE 0.9% 1,000 ML IV ONE (12:00)
[2017-10-01] MEDS ORDERED: IPRATROPIUM BROMIDE 0.5 MG/2.5 ML NEB SOLUTION NEB ONE (12:00)
[2017-10-01] MEDS ORDERED: ALBUTEROL SULFATE 5 MG/ML 20 ML NEB SOLN [BULK] NEB ONE (12:00)
[2017-10-01] MEDS ORDERED: MethylPREDNISolone SOD SUCC 125 MG/2 ML VIAL IVP ONE (12:00)
[2017-10-01] MEDS ORDERED: 0.9% SODIUM CHLORIDE 5 ML NEB SOLUTION NEB ONE (12:01)
[2017-10-01 12:14] LABS: BASOPHILS % (AUTO) 0.7 % (0.0-2.0); EOSINOPHILS % (AUTO) 1.4 % (1.0-6.0); HEMATOCRIT 42.3 % (36-46); HEMOGLOBIN 14.5 g/dL (12.0-16.0); LYMPHOCYTES # (AUTO) 2.4 K/uL (1.0-4.8); LYMPHOCYTES % (AUTO) 31.3 % (22.0-44.0); MEAN CORPUSCULAR HEMOGLOBIN 30.9 pg (26.0-34.0); MEAN CORPUSCULAR HGB CONC 34.2 G/dL (31.0-37.0); MEAN CORPUSCULAR VOLUME 90 fL (80-100); MONOCYTES # (AUTO) 0.5 K/uL (0.1-1.0); NEUTROPHILS # (AUTO) 4.6 K/uL (1.8-7.7); NEUTROPHILS % (AUTO) 59.6 % (40.0-70.0); PLATELET COUNT (AUTO) 321 K/uL (150-450); RED BLOOD CELL COUNT(AUTO) 4.68 MIL/uL (4.00-5.20); RED CELL DISTRIBUTION WIDTH 15.6 % (11.5-14.5)
[2017-10-01 12:28] LABS: CALCIUM, TOTAL 8.6 mg/dL (8.8-10.5); CREATININE 1.31 mg/dL (0.60-1.30); POTASSIUM 5.1 mmol/L (3.5-5.1)
[2017-10-01 12:34] LABS: ALBUMIN 3.7 g/dL (3.4-5.0); BILIRUBIN,TOTAL 0.3 mg/dL (0.1-1.0); TOTAL PROTEIN, SERUM 6.9 g/dL (6.4-8.2)
[2017-10-01 13:32] VITALS: BP 115/60
== END 2017-10-01 14:08 | disposition home or self-care (01) ==
LOC: EMS 10:55
DX: J44.9 Chronic obstructive pulmonary disease, unspecified (principal); R42 Dizziness and giddiness; I10 Essential (primary) hypertension; E78.00 Pure hypercholesterolemia, unspecified; E11.9 Type 2 diabetes mellitus without complications; J45.909 Unspecified asthma, uncomplicated; F17.210 Nicotine dependence, cigarettes, uncomplicated
CPT/HCPCS: 36415; 71045; 80053; 83880; 84484; 85025; 93005; 94644; 96374; 99285; 99406; J2930; J7030

== ENCOUNTER → 2017-10-10 | Outpatient (CLI) | payer MEDICARE, OTHER ==
[~2017-10-10] MED LIST changes: -FLUT16H NASAL; -HALO2 PO; -PANT40TA25 PO
[2017-10-10 18:00] LABS: CHOL/HDL RATIO 4.2 (3.9-5.7)
== END | disposition home or self-care (01) ==
LOC: LABMN 17:27
PROVIDERS: ATTEND Psychiatry & Neurology Psychiatry
DX: F25.9 Schizoaffective disorder, unspecified (principal); F41.9 Anxiety disorder, unspecified; J44.9 Chronic obstructive pulmonary disease, unspecified; E11.9 Type 2 diabetes mellitus without complications; E78.00 Pure hypercholesterolemia, unspecified; I10 Essential (primary) hypertension
CPT/HCPCS: 82947; 83036

== ENCOUNTER 2017-10-17 18:58 | Emergency (ER) | payer MEDICARE, OTHER ==
[~2017-10-17] VITALS: Ht 149.9 cm; Wt 88.0 kg
[2017-10-17 19:33] LABS: GLUCOSE,POINT OF CARE 99 MG/DL (70-110)
[2017-10-17] MEDS ORDERED: GABA-531 PO (19:40)
[2017-10-17] MEDS ORDERED: DOCU250C91 PO (19:40)
[2017-10-17] MEDS ORDERED: SENN-34 PO (19:40)
[2017-10-17] MEDS ORDERED: QUET200T PO (19:40)
[2017-10-17] MEDS ORDERED: LORA1TAB3 PO (19:40)
[2017-10-17] MEDS ORDERED: TIOT4MIS2 IH (19:40)
[2017-10-17] MEDS ORDERED: MIRT30 PO (19:40)
[2017-10-17] MEDS ORDERED: RANI150T7 PO (19:40)
[2017-10-17] MEDS ORDERED: SIMV-261 PO (19:40)
[2017-10-17] MEDS ORDERED: LEVO200 PO (19:40)
[2017-10-17] MEDS ORDERED: RISP1 PO (19:40)
[2017-10-17 20:02] VITALS: BP 146/79
[2017-10-17 20:10] LABS: EOSINOPHILS % (AUTO) 0.7 % (1.0-6.0); HEMATOCRIT 36.4 % (36-46); HEMOGLOBIN 12.6 g/dL (12.0-16.0); LYMPHOCYTES # (AUTO) 2.2 K/uL (1.0-4.8); LYMPHOCYTES % (AUTO) 22.8 % (22.0-44.0); MEAN CORPUSCULAR HEMOGLOBIN 31.8 pg (26.0-34.0); MEAN CORPUSCULAR HGB CONC 34.6 G/dL (31.0-37.0); MEAN CORPUSCULAR VOLUME 92 fL (80-100); MONOCYTES # (AUTO) 0.6 K/uL (0.1-1.0); MONOCYTES % (AUTO) 5.8 % (2.0-9.0); NEUTROPHILS # (AUTO) 6.9 K/uL (1.8-7.7); NEUTROPHILS % (AUTO) 69.7 % (40.0-70.0); PLATELET COUNT (AUTO) 378 K/uL (150-450); RED BLOOD CELL COUNT(AUTO) 3.97 MIL/uL (4.00-5.20)
[2017-10-17 20:27] LABS: ANION GAP 9 mmol/L (8-16); CALCIUM, TOTAL 8.9 mg/dL (8.8-10.5); CARBON DIOXIDE 27 mmol/L (22-29); CHLORIDE 99 mmol/L (98-107); CREATININE 1.02 mg/dL (0.60-1.30); GLOMERULAR FILTR. RATE CALC 55 mL/min (>60); GLUCOSE,RANDOM 93 mg/dL (70-110); SODIUM SERUM 135 mmol/L (136-145); UREA NITROGEN, BLOOD 21 mg/dL (7-18)
[2017-10-17 20:31] LABS: AMPHET/METH SCREEN,URINE NEGATIVE (NEGATIVE); BARBITURATE SCREEN, URINE NEGATIVE (NEGATIVE); BENZODIAZEPINES SCREEN,URINE NEGATIVE (NEGATIVE); CANNABINOID SCREEN,URINE POSITIVE (NEGATIVE); COCAINE SCREEN,URINE NEGATIVE (NEGATIVE); METHADONE SCREEN, URINE NEGATIVE (NEGATIVE); OPIATE SCREEN,URINE NEGATIVE (NEGATIVE)
[2017-10-17 20:32] LABS: PHENCYCLIDINE SCREEN,URINE NEGATIVE (NEGATIVE)
[2017-10-17 20:36] LABS: ALANINE AMINOTRANSFERASE 21 U/L (12-78); ALBUMIN 3.4 g/dL (3.4-5.0); ALKALINE PHOSPHATASE 101 U/L (46-116); ASPARTATE AMINOTRANSFERASE 19 U/L (15-37); BILIRUBIN,TOTAL 0.2 mg/dL (0.1-1.0); TOTAL PROTEIN, SERUM 6.8 g/dL (6.4-8.2)
== END 2017-10-17 21:30 | disposition home or self-care (01) ==
LOC: EMS 18:59
DX: R53.81 Other malaise (principal); M54.5 Low back pain; G89.29 Other chronic pain; J45.909 Unspecified asthma, uncomplicated; J44.9 Chronic obstructive pulmonary disease, unspecified; K21.9 Gastro-esophageal reflux disease without esophagitis; E11.9 Type 2 diabetes mellitus without complications; E78.00 Pure hypercholesterolemia, unspecified; I10 Essential (primary) hypertension; E03.9 Hypothyroidism, unspecified; F17.210 Nicotine dependence, cigarettes, uncomplicated
CPT/HCPCS: 36415; 80053; 80307; 81002; 82962; 85025; 93005; 99285; G0480

== ENCOUNTER 2018-01-29 12:10 | Inpatient (IN) | payer MEDICAID, MEDICARE, SELFPAY ==
[~2018-01-29] VITALS: Ht 175.3 cm; Wt 97.5 kg
[~2018-01-29 12:10] MED LIST changes: +DOCU250C91 PO; -DSS100 PO; -GABA-529 PO; +GABA-531 PO; -LEVO125 PO; +LEVO200 PO; +LOSA50TA25 PO; -LOSA50TA37 PO; +METF-960 PO; -METF500T6 PO; +MIRT30 PO; +RANI150T7 PO; +RISP1 PO; +SENN-34 PO; -SIMV-260 PO; +SIMV-261 PO; +TIOT4MIS2 IH
[2018-01-29 12:43] LABS: GLUCOSE,POINT OF CARE 130 MG/DL (70-110)
[2018-01-29 13:20] LABS: BASOPHILS % (AUTO) 0.6 % (0.0-2.0); EOSINOPHILS % (AUTO) 0.1 % (1.0-6.0); HEMATOCRIT 42.3 % (36-46); HEMOGLOBIN 14.5 g/dL (12.0-16.0); LYMPHOCYTES # (AUTO) 0.7 K/uL (1.0-4.8); LYMPHOCYTES % (AUTO) 9.6 % (22.0-44.0); MEAN CORPUSCULAR HEMOGLOBIN 31.2 pg (26.0-34.0); MEAN CORPUSCULAR HGB CONC 34.3 G/dL (31.0-37.0); MEAN CORPUSCULAR VOLUME 91 fL (80-100); MONOCYTES # (AUTO) 0.1 K/uL (0.1-1.0); MONOCYTES % (AUTO) 0.8 % (2.0-9.0); NEUTROPHILS # (AUTO) 6.5 K/uL (1.8-7.7); PLATELET COUNT (AUTO) 375 K/uL (150-450); RED BLOOD CELL COUNT(AUTO) 4.65 MIL/uL (4.00-5.20); RED CELL DISTRIBUTION WIDTH 14.3 % (11.5-14.5)
[2018-01-29 13:27] LABS: NEUTROPHILS % (AUTO) 88.9 % (40.0-70.0)
[2018-01-29 13:42] LABS: ANION GAP 9 mmol/L (8-16); CALCIUM, TOTAL 9.3 mg/dL (8.8-10.5); CARBON DIOXIDE 26 mmol/L (22-29); CHLORIDE 97 mmol/L (98-107); CREATININE 1.13 mg/dL (0.60-1.30); GLOMERULAR FILTR. RATE CALC 49 mL/min (>60); GLUCOSE,RANDOM 137 mg/dL (70-110); POTASSIUM 4.6 mmol/L (3.5-5.1); SODIUM SERUM 132 mmol/L (136-145); UREA NITROGEN, BLOOD 12 mg/dL (7-18)
[2018-01-29 13:49] LABS: ALANINE AMINOTRANSFERASE 23 U/L (12-78); ALBUMIN 3.8 g/dL (3.4-5.0); ALKALINE PHOSPHATASE 118 U/L (46-116); ASPARTATE AMINOTRANSFERASE 26 U/L (15-37); BILIRUBIN,TOTAL 0.2 mg/dL (0.1-1.0); LIPASE 134 U/L (73-393); TOTAL PROTEIN, SERUM 7.9 g/dL (6.4-8.2)
[2018-01-29 14:10] LABS: BILIRUBIN,URINE NEGATIVE (NEGATIVE); GLUCOSE, URINE (UA) NEGATIVE (NEGATIVE); KETONES,URINE NEGATIVE (NEGATIVE); LEUKOCYTE ESTERASE ,URINE SMALL (NEGATIVE); NITRATE,URINE NEGATIVE (NEGATIVE); OCCULT BLOOD,URINE NEGATIVE (NEGATIVE); PH,URINE 5.5 (5.0-8.0); PROTEIN,URINE NEGATIVE (NEGATIVE); UROBILINOGEN,URINE 0.2 mg/dL (<=1.0)
[2018-01-29 14:12] LABS: APPEARANCE,URINE HAZY (CLEAR)
[2018-01-29] MEDS ORDERED: BARIUM SULFATE 0.1% SUSPENSION 450 ML BOTTLE PO ONE (14:15)
[2018-01-29 14:20] LABS: BACTERIA,URINE None Seen /HPF (None Seen); RBC,URINE 0-2 /HPF (0-2); SQUAMOUS EPITHELIAL CELL,UR Few /LPF (None Seen); YEAST,URINE Few /HPF (None Seen)
[2018-01-29 14:30] LABS: ACETAMINOPHEN < 2 mcg/mL (10-30); SALICYLATE 6.2 mg/dL (2.8-20.0)
[2018-01-29 14:35] LABS: PROTHROMBIN TIME 10.3 SEC (9.4-11.6)
[2018-01-29] MEDS ORDERED: IOVERSOL 350 MG/ML 100 ML VIAL ONE (15:23)
[2018-01-29] MEDS ORDERED: SODIUM CHLORIDE 0.9% 100 ML ONE (15:24)
[2018-01-29] MEDS ORDERED: MetroNIDAZOLE 500 MG/NACL 100 ML IV ONE (18:00)
[2018-01-29] MEDS ORDERED: CIPROFLOXACIN 400 MG/D5% WATER 200 ML IV ONE (18:00)
[2018-01-29] MEDS ORDERED: MORPHINE SULFATE 2 MG/ML SYRINGE IVP ONE (18:15)
[2018-01-29] MEDS ORDERED: QUEtiapine FUMARATE 100 MG TABLET PO PRN (18:30)
[2018-01-29] MEDS ORDERED: ZOLPIDEM TARTRATE 10 MG TABLET PO PRN (18:30)
[2018-01-29 18:56] LABS: AMPHET/METH SCREEN,URINE NEGATIVE (NEGATIVE); BARBITURATE SCREEN, URINE NEGATIVE (NEGATIVE); BENZODIAZEPINES SCREEN,URINE NEGATIVE (NEGATIVE); CANNABINOID SCREEN,URINE NEGATIVE (NEGATIVE); COCAINE SCREEN,URINE NEGATIVE (NEGATIVE); METHADONE SCREEN, URINE NEGATIVE (NEGATIVE); OPIATE SCREEN,URINE NEGATIVE (NEGATIVE)
[2018-01-29 18:58] LABS: PHENCYCLIDINE SCREEN,URINE NEGATIVE (NEGATIVE)
[2018-01-29] MEDS: QUEtiapine FUMARATE 200 MG TABLET PO SCH (21:37)
[2018-01-29] MEDS: MIRTAZAPINE 30 MG TABLET PO SCH (21:37)
[2018-01-29] MEDS: GABAPENTIN 300 MG CAPSULE PO SCH (21:37)
[2018-01-29 21:50] VITALS: BP 163/95
[2018-01-30 06:23] LABS: CHOL/HDL RATIO 5.3 (3.9-5.7)
[2018-01-30] MEDS: GABAPENTIN 300 MG CAPSULE PO SCH ×3 (08:56→16:28)
[2018-01-30] MEDS ORDERED: HydrOXYzine PAMOATE 50 MG CAPSULE PO PRN (12:30)
[2018-01-30] MEDS ORDERED: TUBERCULIN, PURIFIED PROTEIN DERIVATIVE 5 TU/0.1 ML SYG ID ONE (12:30)
[2018-01-30] MEDS ORDERED: MAGNESIUM HYDROXIDE SUSPENSION 30 ML UDCUP PO PRN (12:30)
[2018-01-30] MEDS ORDERED: PROMETHAZINE HCL 25 MG TABLET PO PRN (12:30)
[2018-01-30] MEDS ORDERED: GuaiFENesin/D-METHORPHAN [SUGAR-FREE] 200-20MG/10 ML SYRUP UDCUP PO PRN (12:30)
[2018-01-30] MEDS ORDERED: MAG HYDROX/AL HYDROX/SIMETH ES 30 ML SUSPENSION UDCUP PO PRN (12:30)
[2018-01-30] MEDS ORDERED: LOPERAMIDE HCL 2 MG CAPSULE PO PRN (12:30)
[2018-01-30] MEDS: ACETAMINOPHEN 325 MG TABLET PO PRN (12:50)
[2018-01-30 13:45] VITALS: BP 96/60
[2018-01-30] MEDS: THIAMINE HCL 100 MG TABLET PO SCH (16:28)
[2018-01-30] MEDS: MetFORMIN HCL 500 MG TABLET PO SCH (16:28)
[2018-01-30 16:58] VITALS: BP 130/70
[2018-01-30] MEDS: DOCUSATE SODIUM 250 MG CAPSULE PO SCH (20:37)
[2018-01-30] MEDS: QUEtiapine FUMARATE 200 MG TABLET PO SCH (20:37)
[2018-01-30] MEDS: SIMVASTATIN 40 MG TABLET PO SCH (20:37)
[2018-01-30] MEDS: MIRTAZAPINE 30 MG TABLET PO SCH (20:37)
[2018-01-31 02:00] VITALS: BP 132/76
[2018-01-31] MEDS: ACETAMINOPHEN 325 MG TABLET PO PRN ×2 (02:03→16:52)
[2018-01-31] MEDS: LEVOTHYROXINE SODIUM 25 MCG TABLET PO SCH (07:10)
[2018-01-31] MEDS: MetFORMIN HCL 500 MG TABLET PO SCH ×2 (07:10→16:44)
[2018-01-31 09:02] VITALS: BP 136/65
[2018-01-31] MEDS: MULTIVITAMINS WITH MINERALS, THERAPEUTIC TABLET PO SCH (09:18)
[2018-01-31] MEDS: GABAPENTIN 300 MG CAPSULE PO SCH ×3 (09:18→16:44)
[2018-01-31] MEDS: FOLIC ACID 1 MG TABLET PO SCH (09:19)
[2018-01-31] MEDS: THIAMINE HCL 100 MG TABLET PO SCH ×2 (09:19→16:44)
[2018-01-31] MEDS: METOPROLOL TARTRATE 25 MG TABLET PO SCH (09:20)
[2018-01-31] MEDS ORDERED: DENTURE ADHESIVE 68 GM CREAM DT PRN (12:00)
[2018-01-31 16:52] VITALS: BP 148/75
[2018-01-31 17:14] LABS: GLUCOMETER DEV NAME(LOC) 3EX 1; GLUCOSE,POINT OF CARE 106 MG/DL (70-110)
[2018-01-31] MEDS: QUEtiapine FUMARATE 200 MG TABLET PO SCH (21:40)
[2018-01-31] MEDS: MIRTAZAPINE 30 MG TABLET PO SCH (21:40)
[2018-01-31] MEDS: SIMVASTATIN 40 MG TABLET PO SCH (21:40)
[2018-01-31] MEDS: DOCUSATE SODIUM 250 MG CAPSULE PO SCH (21:40)
[2018-02-01 06:19] LABS: GLUCOMETER DEV NAME(LOC) 3EI C; GLUCOSE,POINT OF CARE 106 MG/DL (70-110)
[2018-02-01] MEDS: LEVOTHYROXINE SODIUM 25 MCG TABLET PO SCH (07:02)
[2018-02-01] MEDS: MetFORMIN HCL 500 MG TABLET PO SCH ×2 (07:02→17:01)
[2018-02-01] MEDS: GABAPENTIN 300 MG CAPSULE PO SCH ×3 (08:21→17:01)
[2018-02-01] MEDS: MULTIVITAMINS WITH MINERALS, THERAPEUTIC TABLET PO SCH (08:21)
[2018-02-01] MEDS: FOLIC ACID 1 MG TABLET PO SCH (08:22)
[2018-02-01] MEDS: THIAMINE HCL 100 MG TABLET PO SCH ×2 (08:22→17:01)
[2018-02-01] MEDS: METOPROLOL TARTRATE 25 MG TABLET PO SCH (08:23)
[2018-02-01 09:45] VITALS: BP 138/79
[2018-02-01 17:00] VITALS: BP 126/53
[2018-02-01] MEDS: LORazepam 2 MG TABLET PO PRN ×2 (17:01→21:06)
[2018-02-01] MEDS: SIMVASTATIN 40 MG TABLET PO SCH (21:04)
[2018-02-01] MEDS: MIRTAZAPINE 30 MG TABLET PO SCH (21:04)
[2018-02-01] MEDS: DOCUSATE SODIUM 250 MG CAPSULE PO SCH (21:05)
[2018-02-01] MEDS: QUEtiapine FUMARATE 200 MG TABLET PO SCH (21:06)
[2018-02-01 21:11] VITALS: BP 148/86
[2018-02-02 06:28] LABS: GLUCOMETER DEV NAME(LOC) 3EI C; GLUCOSE,POINT OF CARE 109 MG/DL (70-110)
[2018-02-02] MEDS: LEVOTHYROXINE SODIUM 25 MCG TABLET PO SCH (06:56)
[2018-02-02] MEDS: MetFORMIN HCL 500 MG TABLET PO SCH ×2 (06:56→17:37)
[2018-02-02] MEDS: GABAPENTIN 300 MG CAPSULE PO SCH ×3 (08:52→17:37)
[2018-02-02] MEDS: FOLIC ACID 1 MG TABLET PO SCH (08:52)
[2018-02-02] MEDS: MULTIVITAMINS WITH MINERALS, THERAPEUTIC TABLET PO SCH (08:52)
[2018-02-02] MEDS: METOPROLOL TARTRATE 25 MG TABLET PO SCH (08:52)
[2018-02-02] MEDS: THIAMINE HCL 100 MG TABLET PO SCH ×2 (08:52→17:36)
[2018-02-02 16:30] VITALS: BP 142/70
[2018-02-02] MEDS: ACETAMINOPHEN 325 MG TABLET PO PRN (16:39)
[2018-02-02] MEDS ORDERED: MIRT30 PO (16:55)
[2018-02-02] MEDS ORDERED: GABA-531 PO (16:55)
[2018-02-02] MEDS ORDERED: QUET200T29 PO (16:55)
[2018-02-02] MEDS: DOCUSATE SODIUM 250 MG CAPSULE PO SCH (21:07)
[2018-02-02] MEDS: SIMVASTATIN 40 MG TABLET PO SCH (21:07)
[2018-02-02] MEDS: MIRTAZAPINE 30 MG TABLET PO SCH (21:07)
[2018-02-02] MEDS: QUEtiapine FUMARATE 200 MG TABLET PO SCH (21:07)
[2018-02-03 05:29] LABS: GLUCOMETER DEV NAME(LOC) 3EI C; GLUCOSE,POINT OF CARE 117 MG/DL (70-110)
[2018-02-03] MEDS: LEVOTHYROXINE SODIUM 25 MCG TABLET PO SCH (06:46)
[2018-02-03] MEDS: MetFORMIN HCL 500 MG TABLET PO SCH (06:46)
[2018-02-03] MEDS: GABAPENTIN 300 MG CAPSULE PO SCH ×2 (09:13→12:14)
[2018-02-03] MEDS: FOLIC ACID 1 MG TABLET PO SCH (09:13)
[2018-02-03] MEDS: METOPROLOL TARTRATE 25 MG TABLET PO SCH (09:13)
[2018-02-03] MEDS: THIAMINE HCL 100 MG TABLET PO SCH (09:14)
[2018-02-03] MEDS: MULTIVITAMINS WITH MINERALS, THERAPEUTIC TABLET PO SCH (09:14)
[2018-02-03 09:38] VITALS: BP 102/64
[2018-02-03] MEDS ORDERED: LEVO25TA9 PO (10:02)
[2018-02-03] MEDS ORDERED: METO25 PO (10:03)
== END 2018-02-03 13:30 | disposition home or self-care (01) | DRG 885 ==
LOC: EMS 12:11 → 3EX 19:58
PROVIDERS: ADMIT Psychiatry & Neurology Psychiatry; ATTEND Psychiatry & Neurology Psychiatry
DX: F25.0 Schizoaffective disorder, bipolar type (principal); Z93.3 Colostomy status; R45.851 Suicidal ideations; E66.9 Obesity, unspecified; E11.9 Type 2 diabetes mellitus without complications; E03.9 Hypothyroidism, unspecified; E78.00 Pure hypercholesterolemia, unspecified; F17.200 Nicotine dependence, unspecified, uncomplicated; G47.00 Insomnia, unspecified; I10 Essential (primary) hypertension; I25.10 Atherosclerotic heart disease of native coronary artery without angina pectoris; J44.9 Chronic obstructive pulmonary disease, unspecified; K21.9 Gastro-esophageal reflux disease without esophagitis; K59.00 Constipation, unspecified; F41.9 Anxiety disorder, unspecified; M19.90 Unspecified osteoarthritis, unspecified site; E78.5 Hyperlipidemia, unspecified; B96.1 Klebsiella pneumoniae [K. pneumoniae] as the cause of diseases classified elsewhere; Z65.3 Problems related to other legal circumstances; Z85.038 Personal history of other malignant neoplasm of large intestine; Z85.3 Personal history of malignant neoplasm of breast; Z90.49 Acquired absence of other specified parts of digestive tract; Z90.11 Acquired absence of right breast and nipple; Z91.19 Patient's noncompliance with other medical treatment and regimen; Z68.31 Body mass index [BMI] 31.0-31.9, adult
CPT/HCPCS: 74177; 83036; 87086; 93005; 96365; 96366; 96368; 96375; G0378; G0480; G0481; J0744; J2270; J3490; J7050

== ENCOUNTER 2018-02-26 11:32 | Inpatient (IN) | payer MEDICARE ==
[~2018-02-26] VITALS: Ht 149.9 cm; Wt 100.7 kg
[~2018-02-26 11:32] MED LIST changes: -BENZ1TAB10 PO; -HALO5TAB2 PO; -HYDR-309 PO; -LEVO200 PO; +LEVO25TA9 PO; -LORA1TAB3 PO; -LOSA50TA25 PO; +METO25 PO; -METO50 PO; +QUET200T29 PO; -RANI150T7 PO; -RISP1 PO; -SENN-34 PO; -TIOT4MIS2 IH; -TRAZ-220 PO; -ZOLP5 PO
[2018-02-26 12:19] VITALS: BP 149/79
[2018-02-26] MEDS ORDERED: GuaiFENesin/D-METHORPHAN [SUGAR-FREE] 200-20MG/10 ML SYRUP UDCUP PO PRN (13:30)
[2018-02-26] MEDS ORDERED: LOPERAMIDE HCL 2 MG CAPSULE PO PRN ×2 (13:30→15:00)
[2018-02-26] MEDS ORDERED: MAG HYDROX/AL HYDROX/SIMETH ES 30 ML SUSPENSION UDCUP PO PRN ×2 (13:30→15:00)
[2018-02-26] MEDS ORDERED: QUEtiapine FUMARATE 100 MG TABLET PO PRN (13:30)
[2018-02-26] MEDS ORDERED: ACETAMINOPHEN 325 MG TABLET PO PRN ×2 (13:30→15:00)
[2018-02-26] MEDS ORDERED: PROMETHAZINE HCL 25 MG TABLET PO PRN (13:30)
[2018-02-26] MEDS ORDERED: LORazepam 2 MG TABLET PO PRN (13:30)
[2018-02-26] MEDS ORDERED: MAGNESIUM HYDROXIDE SUSPENSION 30 ML UDCUP PO PRN ×2 (13:30→15:00)
[2018-02-26] MEDS ORDERED: ZOLPIDEM TARTRATE 10 MG TABLET PO PRN (13:30)
[2018-02-26] MEDS ORDERED: HydrOXYzine PAMOATE 50 MG CAPSULE PO PRN (13:30)
[2018-02-26 14:32] VITALS: BP 125/62
[2018-02-26] MEDS ORDERED: ALBUTEROL SULFATE HFA 90 MCG/PUFF 8 GM INHALER IH PRN (15:00)
[2018-02-26] MEDS ORDERED: GLUCAGON,HUMAN RECOMBINANT 1 MG VIAL IM PRN (15:00)
[2018-02-26] MEDS ORDERED: BACITRACIN 28.4 GM OINTMENT TP PRN (15:00)
[2018-02-26] MEDS ORDERED: ONDANSETRON HCL 4 MG TABLET PO PRN (15:00)
[2018-02-26] MEDS ORDERED: CloNIDine HCL 0.1 MG TABLET PO PRN (15:00)
[2018-02-26] MEDS ORDERED: BENZOCAINE/MENTHOL LOZENGE MM PRN (15:00)
[2018-02-26] MEDS ORDERED: PETROLATUM,WHITE 71 GM JELLY TP PRN (15:00)
[2018-02-26] MEDS ORDERED: IBUPROFEN 600 MG TABLET PO PRN (15:00)
[2018-02-26 16:30] VITALS: BP 135/68
[2018-02-26] MEDS: GABAPENTIN 300 MG CAPSULE PO SCH (16:44)
[2018-02-26] MEDS: THIAMINE HCL 100 MG TABLET PO SCH (16:45)
[2018-02-26 16:49] LABS: GLUCOMETER DEV NAME(LOC) BV2S.; GLUCOSE,POINT OF CARE 77 MG/DL (70-110)
[2018-02-26 20:19] LABS: GLUCOMETER DEV NAME(LOC) BV2S.; GLUCOSE,POINT OF CARE 109 MG/DL (70-110)
[2018-02-26] MEDS: QUEtiapine FUMARATE 200 MG TABLET PO SCH (20:33)
[2018-02-26] MEDS: MIRTAZAPINE 15 MG TABLET PO SCH (20:33)
[2018-02-26] MEDS: TraMADol HCL 50 MG TABLET PO PRN (21:40)
[2018-02-26 21:41] VITALS: BP 129/64
[2018-02-27 00:47] VITALS: BP 132/84
[2018-02-27 06:44] LABS: GLUCOMETER DEV NAME(LOC) BV2S.; GLUCOSE,POINT OF CARE 97 MG/DL (70-110)
[2018-02-27 08:10] VITALS: BP 117/74
[2018-02-27 08:43] LABS: BASOPHILS % (AUTO) 0.7 % (0.0-2.0); EOSINOPHILS % (AUTO) 1.9 % (1.0-6.0); HEMATOCRIT 38.8 % (36-46); LYMPHOCYTES # (AUTO) 1.8 K/uL (1.0-4.8); LYMPHOCYTES % (AUTO) 28.4 % (22.0-44.0); MEAN CORPUSCULAR HEMOGLOBIN 30.8 pg (26.0-34.0); MEAN CORPUSCULAR HGB CONC 33.6 G/dL (31.0-37.0); MEAN CORPUSCULAR VOLUME 92 fL (80-100); MONOCYTES # (AUTO) 0.5 K/uL (0.1-1.0); MONOCYTES % (AUTO) 7.8 % (2.0-9.0); NEUTROPHILS # (AUTO) 3.8 K/uL (1.8-7.7); NEUTROPHILS % (AUTO) 61.2 % (40.0-70.0); PLATELET COUNT (AUTO) 384 K/uL (150-450); RED BLOOD CELL COUNT(AUTO) 4.23 MIL/uL (4.00-5.20); RED CELL DISTRIBUTION WIDTH 15.2 % (11.5-14.5)
[2018-02-27] MEDS: GABAPENTIN 300 MG CAPSULE PO SCH ×3 (08:46→16:33)
[2018-02-27] MEDS: THIAMINE HCL 100 MG TABLET PO SCH ×2 (08:46→16:33)
[2018-02-27] MEDS: FOLIC ACID 1 MG TABLET PO SCH (08:46)
[2018-02-27] MEDS: MULTIVITAMINS WITH MINERALS, THERAPEUTIC TABLET PO SCH (08:46)
[2018-02-27] MEDS: TraMADol HCL 50 MG TABLET PO PRN ×2 (08:55→16:01)
[2018-02-27] MEDS ORDERED: OMEPRAZOLE 20 MG CAPSULE PO SCH (09:00)
[2018-02-27] MEDS ORDERED: DOCUSATE SODIUM 100 MG CAPSULE PO SCH (09:00)
[2018-02-27 09:07] LABS: HEMOGLOBIN A1C 6.2 % (4.5-6.2)
[2018-02-27 09:15] LABS: ALBUMIN 3.5 g/dL (3.4-5.0); BILIRUBIN,TOTAL 0.2 mg/dL (0.1-1.0); CALCIUM, TOTAL 8.6 mg/dL (8.8-10.5); CHOL/HDL RATIO 4.6 (3.9-5.7); FREE T4 (FREE THYROXINE) 0.51 ng/dL (0.76-1.46); POTASSIUM 4.9 mmol/L (3.5-5.1); THYROID STIMULATING HORMONE 101.26 uIU/mL (0.36-3.74); TOTAL PROTEIN, SERUM 6.5 g/dL (6.4-8.2)
[2018-02-27 11:48] LABS: GLUCOMETER DEV NAME(LOC) BV2S.; GLUCOSE,POINT OF CARE 86 MG/DL (70-110)
[2018-02-27 16:01] VITALS: BP 122/67
[2018-02-27 16:54] LABS: GLUCOMETER DEV NAME(LOC) BV2S.; GLUCOSE,POINT OF CARE 87 MG/DL (70-110)
[2018-02-27] MEDS: MIRTAZAPINE 15 MG TABLET PO SCH (20:08)
[2018-02-27] MEDS: QUEtiapine FUMARATE 200 MG TABLET PO SCH (20:08)
[2018-02-27 20:29] LABS: GLUCOMETER DEV NAME(LOC) BV2S.; GLUCOSE,POINT OF CARE 100 MG/DL (70-110)
[2018-02-28 03:10] VITALS: BP 122/76
[2018-02-28] MEDS: TraMADol HCL 50 MG TABLET PO PRN ×2 (03:12→17:17)
[2018-02-28] MEDS: LEVOTHYROXINE SODIUM 50 MCG TABLET PO SCH (06:03)
[2018-02-28 06:19] LABS: GLUCOMETER DEV NAME(LOC) BV2S.; GLUCOSE,POINT OF CARE 105 MG/DL (70-110)
[2018-02-28 08:16] VITALS: BP 123/78
[2018-02-28] MEDS: GABAPENTIN 300 MG CAPSULE PO SCH ×3 (08:23→16:35)
[2018-02-28] MEDS: THIAMINE HCL 100 MG TABLET PO SCH ×2 (08:23→16:35)
[2018-02-28] MEDS: FOLIC ACID 1 MG TABLET PO SCH (08:23)
[2018-02-28] MEDS: MULTIVITAMINS WITH MINERALS, THERAPEUTIC TABLET PO SCH (08:23)
[2018-02-28 11:09] LABS: GLUCOMETER DEV NAME(LOC) BV2S.; GLUCOSE,POINT OF CARE 96 MG/DL (70-110)
[2018-02-28 16:15] VITALS: BP 140/70
[2018-02-28 16:44] LABS: GLUCOMETER DEV NAME(LOC) BV2S.; GLUCOSE,POINT OF CARE 97 MG/DL (70-110)
[2018-02-28 17:15] VITALS: BP 142/72
[2018-02-28 18:54] VITALS: BP 132/67
[2018-02-28 20:24] LABS: GLUCOMETER DEV NAME(LOC) BV2S.; GLUCOSE,POINT OF CARE 83 MG/DL (70-110)
[2018-02-28] MEDS: MIRTAZAPINE 15 MG TABLET PO SCH (20:38)
[2018-02-28] MEDS: QUEtiapine FUMARATE 200 MG TABLET PO SCH (20:38)
[2018-03-01 01:12] VITALS: BP 120/81
[2018-03-01] MEDS: TraMADol HCL 50 MG TABLET PO PRN ×2 (01:13→16:21)
[2018-03-01] MEDS: LEVOTHYROXINE SODIUM 50 MCG TABLET PO SCH (06:25)
[2018-03-01 06:38] LABS: GLUCOMETER DEV NAME(LOC) BV2S.; GLUCOSE,POINT OF CARE 103 MG/DL (70-110)
[2018-03-01 08:29] VITALS: BP 114/67
[2018-03-01] MEDS: THIAMINE HCL 100 MG TABLET PO SCH ×2 (08:29→16:42)
[2018-03-01] MEDS: FOLIC ACID 1 MG TABLET PO SCH (08:29)
[2018-03-01] MEDS: GABAPENTIN 300 MG CAPSULE PO SCH ×3 (08:29→16:42)
[2018-03-01] MEDS: MULTIVITAMINS WITH MINERALS, THERAPEUTIC TABLET PO SCH (08:29)
[2018-03-01] MEDS ORDERED: ACETAMINOPHEN 325 MG TABLET PO PRN (10:45)
[2018-03-01 11:08] LABS: GLUCOMETER DEV NAME(LOC) BV2S.; GLUCOSE,POINT OF CARE 90 MG/DL (70-110)
[2018-03-01 16:19] LABS: GLUCOMETER DEV NAME(LOC) BV2S.; GLUCOSE,POINT OF CARE 156 MG/DL (70-110)
[2018-03-01 16:21] VITALS: BP 126/77
[2018-03-01] MEDS: INSULIN LISPRO 100 UNITS/ML SQ PRN (16:43)
[2018-03-01 20:14] LABS: GLUCOMETER DEV NAME(LOC) BV2S.; GLUCOSE,POINT OF CARE 135 MG/DL (70-110)
[2018-03-01] MEDS: QUEtiapine FUMARATE 200 MG TABLET PO SCH (20:32)
[2018-03-01] MEDS: MIRTAZAPINE 15 MG TABLET PO SCH (20:32)
[2018-03-01] MEDS ORDERED: DENTURE ADHESIVE 68 GM CREAM DT PRN (21:00)
[2018-03-02 04:14] VITALS: BP 118/70
[2018-03-02] MEDS: LEVOTHYROXINE SODIUM 75 MCG TABLET PO SCH (06:11)
[2018-03-02 06:24] LABS: GLUCOMETER DEV NAME(LOC) BV2S.; GLUCOSE,POINT OF CARE 118 MG/DL (70-110)
[2018-03-02 08:26] VITALS: BP 105/60
[2018-03-02] MEDS: GABAPENTIN 300 MG CAPSULE PO SCH ×3 (08:29→16:33)
[2018-03-02] MEDS: FOLIC ACID 1 MG TABLET PO SCH (08:29)
[2018-03-02] MEDS: MULTIVITAMINS WITH MINERALS, THERAPEUTIC TABLET PO SCH (08:29)
[2018-03-02] MEDS: THIAMINE HCL 100 MG TABLET PO SCH ×2 (08:29→16:33)
[2018-03-02 10:01] VITALS: BP 118/77
[2018-03-02] MEDS: TraMADol HCL 50 MG TABLET PO PRN ×2 (10:01→16:22)
[2018-03-02] MEDS: INSULIN LISPRO 100 UNITS/ML SQ PRN (10:55)
[2018-03-02 11:13] LABS: GLUCOMETER DEV NAME(LOC) BV2S.; GLUCOSE,POINT OF CARE 187 MG/DL (70-110)
[2018-03-02 16:18] VITALS: BP 117/62
[2018-03-02 16:19] LABS: GLUCOMETER DEV NAME(LOC) BV2S.; GLUCOSE,POINT OF CARE 132 MG/DL (70-110)
[2018-03-02] MEDS ORDERED: MIRT15 PO (16:36)
[2018-03-02] MEDS ORDERED: GABA-531 PO (16:36)
[2018-03-02] MEDS ORDERED: QUET200T29 PO (16:36)
[2018-03-02 20:19] LABS: GLUCOMETER DEV NAME(LOC) BV2S.; GLUCOSE,POINT OF CARE 93 MG/DL (70-110)
[2018-03-02] MEDS: QUEtiapine FUMARATE 200 MG TABLET PO SCH (20:30)
[2018-03-02] MEDS: MIRTAZAPINE 15 MG TABLET PO SCH (20:30)
[2018-03-03 00:44] VITALS: BP 120/81
[2018-03-03 06:29] LABS: GLUCOMETER DEV NAME(LOC) BV2S.; GLUCOSE,POINT OF CARE 116 MG/DL (70-110)
[2018-03-03] MEDS: LEVOTHYROXINE SODIUM 75 MCG TABLET PO SCH (06:35)
[2018-03-03] MEDS: GABAPENTIN 300 MG CAPSULE PO SCH (08:23)
[2018-03-03] MEDS: FOLIC ACID 1 MG TABLET PO SCH (08:23)
[2018-03-03] MEDS: MULTIVITAMINS WITH MINERALS, THERAPEUTIC TABLET PO SCH (08:23)
[2018-03-03] MEDS: THIAMINE HCL 100 MG TABLET PO SCH (08:23)
[2018-03-03 08:32] VITALS: BP 119/73
== END 2018-03-03 10:30 | disposition home or self-care (01) | DRG 885 ==
LOC: B2S 13:52 → UNDOADMIN 15:06 → B2X 17:12
PROVIDERS: ADMIT Psychiatry & Neurology Psychiatry; ATTEND Psychiatry & Neurology Psychiatry
DX: F25.0 Schizoaffective disorder, bipolar type (principal); Z68.41 Body mass index [BMI] 40.0-44.9, adult; E66.9 Obesity, unspecified; G47.00 Insomnia, unspecified; K21.9 Gastro-esophageal reflux disease without esophagitis; K59.00 Constipation, unspecified; M17.10 Unilateral primary osteoarthritis, unspecified knee; M54.9 Dorsalgia, unspecified; Z91.19 Patient's noncompliance with other medical treatment and regimen
CPT/HCPCS: 83036; 84439; 84443

== ENCOUNTER 2018-07-27 16:49 | Inpatient (IN) | payer MEDICARE, MEDICAID ==
[~2018-07-27] VITALS: Ht 149.9 cm; Wt 102.5 kg
[~2018-07-27 16:49] MED LIST changes: -DOCU250C91 PO; -METF-960 PO; -METO25 PO; +MIRT15 PO; -MIRT30 PO; -QUET200T PO; -SIMV-261 PO
[2018-07-27] MEDS ORDERED: CYCL10 PO (19:23)
[2018-07-27] MEDS ORDERED: HALO10 PO (19:23)
[2018-07-27] MEDS ORDERED: GABA-531 PO (19:23)
[2018-07-27] MEDS ORDERED: BENZ1TAB10 PO (19:23)
[2018-07-27] MEDS ORDERED: QUET200T PO (19:23)
[2018-07-27] MEDS ORDERED: DOCU250C91 PO (19:23)
[2018-07-27] MEDS ORDERED: METO25 PO (19:23)
[2018-07-27] MEDS ORDERED: SIMV-260 PO (19:23)
[2018-07-27] MEDS ORDERED: ALBU8HFA IH (19:23)
[2018-07-27] MEDS ORDERED: QUEtiapine FUMARATE 100 MG TABLET PO PRN (20:45)
[2018-07-27] MEDS ORDERED: ZOLPIDEM TARTRATE 10 MG TABLET PO PRN (20:45)
[2018-07-27] MEDS ORDERED: QUEtiapine FUMARATE 200 MG TABLET PO SCH (21:00)
[2018-07-27] MEDS ORDERED: MIRTAZAPINE 15 MG TABLET PO SCH (21:00)
[2018-07-27] MEDS: HALOPERIDOL 10 MG TABLET PO SCH (21:19)
[2018-07-27 21:20] VITALS: BP 122/91
[2018-07-27 21:35] LABS: GLUCOMETER DEV NAME(LOC) BV2S.; GLUCOSE,POINT OF CARE 84 MG/DL (70-110)
[2018-07-27] MEDS ORDERED: DENTURE ADHESIVE 68 GM CREAM DT PRN (22:00)
[2018-07-27] MEDS ORDERED: GLUCAGON,HUMAN RECOMBINANT 1 MG VIAL IM PRN (22:00)
[2018-07-27] MEDS ORDERED: MetFORMIN HCL 500 MG TABLET PO PRN (22:00)
[2018-07-27] MEDS: LORazepam 1 MG TABLET PO PRN (22:41)
[2018-07-28 00:06] VITALS: BP 95/78
[2018-07-28 06:30] LABS: GLUCOMETER DEV NAME(LOC) BV2S.; GLUCOSE,POINT OF CARE 87 MG/DL (70-110)
[2018-07-28] MEDS: LORazepam 1 MG TABLET PO PRN ×2 (06:39→14:06)
[2018-07-28 07:54] LABS: BASOPHILS % (AUTO) 0.7 % (0.0-2.0); EOSINOPHILS % (AUTO) 3.3 % (1.0-6.0); HEMATOCRIT 40.4 % (36-46); HEMOGLOBIN 13.4 g/dL (12.0-16.0); LYMPHOCYTES # (AUTO) 1.6 K/uL (1.0-4.8); LYMPHOCYTES % (AUTO) 23.7 % (22.0-44.0); MEAN CORPUSCULAR HEMOGLOBIN 28.5 pg (26.0-34.0); MEAN CORPUSCULAR HGB CONC 33.1 G/dL (31.0-37.0); MEAN CORPUSCULAR VOLUME 86 fL (80-100); MONOCYTES # (AUTO) 0.6 K/uL (0.1-1.0); MONOCYTES % (AUTO) 8.6 % (2.0-9.0); NEUTROPHILS # (AUTO) 4.4 K/uL (1.8-7.7); NEUTROPHILS % (AUTO) 63.7 % (40.0-70.0); PLATELET COUNT (AUTO) 403 K/uL (150-450); RED CELL DISTRIBUTION WIDTH 16.6 % (11.5-14.5)
[2018-07-28 08:00] VITALS: BP 113/74
[2018-07-28 08:03] LABS: HEMOGLOBIN A1C 6.6 % (4.5-6.2)
[2018-07-28 08:28] LABS: ALBUMIN 3.4 g/dL (3.4-5.0); BILIRUBIN,TOTAL 0.3 mg/dL (0.1-1.0); CALCIUM, TOTAL 9.7 mg/dL (8.8-10.5); CHOL/HDL RATIO 4.3 (3.9-5.7); CREATININE 1.04 mg/dL (0.60-1.30); FREE T4 (FREE THYROXINE) 0.61 ng/dL (0.76-1.46); POTASSIUM 5.3 mmol/L (3.5-5.1); THYROID STIMULATING HORMONE 63.24 uIU/mL (0.36-3.74); TOTAL PROTEIN, SERUM 6.9 g/dL (6.4-8.2)
[2018-07-28] MEDS: GABAPENTIN 300 MG CAPSULE PO SCH ×3 (09:33→16:31)
[2018-07-28] MEDS: NICOTINE 21 MG/24 HOUR PATCH TD SCH (09:33)
[2018-07-28] MEDS: CYCLOBENZAPRINE HCL 10 MG TABLET PO SCH ×3 (09:33→16:30)
[2018-07-28] MEDS: BENZTROPINE MESYLATE 1 MG TABLET PO SCH ×2 (09:33→16:32)
[2018-07-28] MEDS ORDERED: LEVOTHYROXINE SODIUM 50 MCG TABLET PO SCH (09:45)
[2018-07-28] MEDS: SODIUM CHLORIDE 1 GM TABLET PO SCH (10:17)
[2018-07-28 11:41] LABS: GLUCOMETER DEV NAME(LOC) BV2S.; GLUCOSE,POINT OF CARE 93 MG/DL (70-110)
[2018-07-28] MEDS: PANTOPRAZOLE SODIUM 40 MG DR TABLET PO SCH (12:34)
[2018-07-28] MEDS ORDERED: HALOPERIDOL DECANOATE 50 MG/ML VIAL IM ONE (14:30)
[2018-07-28] MEDS ORDERED: HydrOXYzine PAMOATE 50 MG CAPSULE PO PRN (14:30)
[2018-07-28] MEDS ORDERED: GuaiFENesin/D-METHORPHAN [SUGAR-FREE] 200-20MG/10 ML SYRUP UDCUP PO PRN (14:30)
[2018-07-28] MEDS ORDERED: ACETAMINOPHEN 325 MG TABLET PO PRN (14:30)
[2018-07-28] MEDS ORDERED: MAGNESIUM HYDROXIDE SUSPENSION 30 ML UDCUP PO PRN (14:30)
[2018-07-28] MEDS ORDERED: PROMETHAZINE HCL 25 MG TABLET PO PRN (14:30)
[2018-07-28] MEDS ORDERED: MAG HYDROX/AL HYDROX/SIMETH ES 30 ML SUSPENSION UDCUP PO PRN (14:30)
[2018-07-28] MEDS ORDERED: LOPERAMIDE HCL 2 MG CAPSULE PO PRN (14:30)
[2018-07-28 16:15] LABS: GLUCOMETER DEV NAME(LOC) BV2S.; GLUCOSE,POINT OF CARE 104 MG/DL (70-110)
[2018-07-28 16:19] VITALS: BP 140/90
[2018-07-28] MEDS: THIAMINE HCL 100 MG TABLET PO SCH (16:31)
[2018-07-28] MEDS: ESZOPICLONE 3 MG TABLET PO SCH (20:44)
[2018-07-28 20:45] LABS: GLUCOMETER DEV NAME(LOC) BV2S.; GLUCOSE,POINT OF CARE 134 MG/DL (70-110)
[2018-07-28] MEDS: MIRTAZAPINE 30 MG TABLET PO SCH (20:45)
[2018-07-28] MEDS: HALOPERIDOL 10 MG TABLET PO SCH (20:45)
[2018-07-29] MEDS: LORazepam 1 MG TABLET PO PRN ×4 (00:01→18:09)
[2018-07-29 02:12] VITALS: BP 120/68
[2018-07-29] MEDS: HALOPERIDOL 5 MG TABLET PO PRN (03:32)
[2018-07-29] MEDS: LEVOTHYROXINE SODIUM 50 MCG TABLET PO SCH (06:07)
[2018-07-29 07:09] LABS: GLUCOMETER DEV NAME(LOC) BV2S.; GLUCOSE,POINT OF CARE 127 MG/DL (70-110)
[2018-07-29 08:16] VITALS: BP 122/75
[2018-07-29] MEDS: MULTIVITAMINS WITH MINERALS, THERAPEUTIC TABLET PO SCH (08:24)
[2018-07-29] MEDS: PANTOPRAZOLE SODIUM 40 MG DR TABLET PO SCH (08:24)
[2018-07-29] MEDS: THIAMINE HCL 100 MG TABLET PO SCH ×2 (08:24→16:35)
[2018-07-29] MEDS: BENZTROPINE MESYLATE 1 MG TABLET PO SCH ×2 (08:24→16:35)
[2018-07-29] MEDS: FOLIC ACID 1 MG TABLET PO SCH (08:25)
[2018-07-29] MEDS: GABAPENTIN 400 MG CAPSULE PO SCH ×3 (08:25→16:35)
[2018-07-29] MEDS: NICOTINE 21 MG/24 HOUR PATCH TD SCH (08:25)
[2018-07-29] MEDS: SODIUM CHLORIDE 1 GM TABLET PO SCH (08:26)
[2018-07-29] MEDS: CYCLOBENZAPRINE HCL 10 MG TABLET PO SCH ×3 (08:26→16:36)
[2018-07-29] MEDS ORDERED: DENTURE ADHESIVE 68 GM CREAM DT PRN (11:30)
[2018-07-29 12:00] LABS: GLUCOMETER DEV NAME(LOC) BV2S.; GLUCOSE,POINT OF CARE 114 MG/DL (70-110)
[2018-07-29 16:23] VITALS: BP 136/86
[2018-07-29 17:19] LABS: GLUCOMETER DEV NAME(LOC) BV2S.; GLUCOSE,POINT OF CARE 98 MG/DL (70-110)
[2018-07-29] MEDS: HALOPERIDOL 10 MG TABLET PO SCH (20:28)
[2018-07-29] MEDS: ESZOPICLONE 3 MG TABLET PO SCH (20:28)
[2018-07-29] MEDS: MIRTAZAPINE 30 MG TABLET PO SCH (20:29)
[2018-07-29 20:59] LABS: GLUCOMETER DEV NAME(LOC) BV2S.; GLUCOSE,POINT OF CARE 109 MG/DL (70-110)
[2018-07-30] VITALS (13 sets, daily range): BP systolic 102–154; BP diastolic 63–90
[2018-07-30] MEDS: LORazepam 1 MG TABLET PO PRN ×3 (00:51→17:10)
[2018-07-30] MEDS: LEVOTHYROXINE SODIUM 50 MCG TABLET PO SCH (06:09)
[2018-07-30 07:09] LABS: GLUCOMETER DEV NAME(LOC) BV2S.; GLUCOSE,POINT OF CARE 116 MG/DL (70-110)
[2018-07-30] MEDS: IBUPROFEN 600 MG TABLET PO PRN (07:18)
[2018-07-30] MEDS: BENZTROPINE MESYLATE 1 MG TABLET PO SCH ×2 (08:51→17:10)
[2018-07-30] MEDS: MULTIVITAMINS WITH MINERALS, THERAPEUTIC TABLET PO SCH (08:51)
[2018-07-30] MEDS: GABAPENTIN 400 MG CAPSULE PO SCH ×3 (08:51→17:10)
[2018-07-30] MEDS: PANTOPRAZOLE SODIUM 40 MG DR TABLET PO SCH (08:51)
[2018-07-30] MEDS: FOLIC ACID 1 MG TABLET PO SCH (08:51)
[2018-07-30] MEDS: THIAMINE HCL 100 MG TABLET PO SCH ×2 (08:51→17:10)
[2018-07-30] MEDS: CYCLOBENZAPRINE HCL 10 MG TABLET PO SCH ×3 (08:52→17:10)
[2018-07-30] MEDS: NICOTINE 21 MG/24 HOUR PATCH TD SCH (08:53)
[2018-07-30 11:04] LABS: GLUCOMETER DEV NAME(LOC) BV2S.; GLUCOSE,POINT OF CARE 73 MG/DL (70-110)
[2018-07-30] MEDS ORDERED: ESZO3 PO (16:26)
[2018-07-30] MEDS ORDERED: HALO50VI4 IM (16:26)
[2018-07-30] MEDS ORDERED: GABA-533 PO (16:26)
[2018-07-30] MEDS ORDERED: BENZ1TAB10 PO (16:26)
[2018-07-30 16:59] LABS: GLUCOMETER DEV NAME(LOC) BV2S.; GLUCOSE,POINT OF CARE 103 MG/DL (70-110)
[2018-07-30] MEDS: HALOPERIDOL 10 MG TABLET PO SCH (20:35)
[2018-07-30] MEDS: MIRTAZAPINE 30 MG TABLET PO SCH (20:38)
[2018-07-30] MEDS: ESZOPICLONE 3 MG TABLET PO SCH (20:38)
[2018-07-30 21:44] LABS: GLUCOMETER DEV NAME(LOC) BV2S.; GLUCOSE,POINT OF CARE 115 MG/DL (70-110)
[2018-07-31 00:01] VITALS: BP 136/82
[2018-07-31] MEDS: LORazepam 1 MG TABLET PO PRN ×2 (00:28→08:39)
[2018-07-31] MEDS ORDERED: PNEUMOCOCCAL VACCINE POLYVALENT 0.5 ML VIAL [PPSV23] IM ONE (05:30)
[2018-07-31] MEDS: LEVOTHYROXINE SODIUM 50 MCG TABLET PO SCH (07:23)
[2018-07-31 08:22] LABS: ALBUMIN 3.4 g/dL (3.4-5.0); BILIRUBIN,TOTAL 0.2 mg/dL (0.1-1.0); CALCIUM, TOTAL 9.6 mg/dL (8.8-10.5); CREATININE 0.94 mg/dL (0.60-1.30); POTASSIUM 4.8 mmol/L (3.5-5.1); TOTAL PROTEIN, SERUM 7.5 g/dL (6.4-8.2)
[2018-07-31] MEDS: BENZTROPINE MESYLATE 1 MG TABLET PO SCH ×2 (08:38→16:17)
[2018-07-31] MEDS: THIAMINE HCL 100 MG TABLET PO SCH ×2 (08:38→16:18)
[2018-07-31] MEDS: PANTOPRAZOLE SODIUM 40 MG DR TABLET PO SCH (08:38)
[2018-07-31] MEDS: MULTIVITAMINS WITH MINERALS, THERAPEUTIC TABLET PO SCH (08:38)
[2018-07-31] MEDS: FOLIC ACID 1 MG TABLET PO SCH (08:38)
[2018-07-31] MEDS: CYCLOBENZAPRINE HCL 10 MG TABLET PO SCH ×3 (08:39→16:17)
[2018-07-31 09:13] VITALS: BP 113/65
[2018-07-31] MEDS: NICOTINE 21 MG/24 HOUR PATCH TD SCH (09:36)
[2018-07-31] MEDS: GABAPENTIN 400 MG CAPSULE PO SCH ×3 (09:36→16:18)
[2018-07-31 16:53] VITALS: BP 120/75
[2018-07-31] MEDS: INSULIN LISPRO 100 UNITS/ML SQ PRN ×2 (17:24→20:47)
[2018-07-31] MEDS: ESZOPICLONE 3 MG TABLET PO SCH (20:09)
[2018-07-31] MEDS: HALOPERIDOL 10 MG TABLET PO SCH (20:09)
[2018-07-31] MEDS: MIRTAZAPINE 15 MG TABLET PO SCH (20:12)
[2018-07-31] MEDS: PRAZOSIN HCL 1 MG CAPSULE PO SCH (20:21)
[2018-07-31 21:05] LABS: GLUCOMETER DEV NAME(LOC) BV2S.; GLUCOSE,POINT OF CARE 141 MG/DL (70-110)
[2018-07-31 21:05] LABS: GLUCOMETER DEV NAME(LOC) BV2S.; GLUCOSE,POINT OF CARE 177 MG/DL (70-110)
[2018-08-01 01:20] VITALS: BP 122/73
[2018-08-01] MEDS: HALOPERIDOL 5 MG TABLET PO PRN (01:26)
[2018-08-01] MEDS: LORazepam 1 MG TABLET PO PRN ×4 (01:26→23:06)
[2018-08-01 06:54] LABS: GLUCOMETER DEV NAME(LOC) BV2S.; GLUCOSE,POINT OF CARE 155 MG/DL (70-110)
[2018-08-01] MEDS: LEVOTHYROXINE SODIUM 50 MCG TABLET PO SCH (07:10)
[2018-08-01] MEDS: INSULIN LISPRO 100 UNITS/ML SQ PRN (07:14)
[2018-08-01] MEDS: MULTIVITAMINS WITH MINERALS, THERAPEUTIC TABLET PO SCH (08:08)
[2018-08-01] MEDS: BENZTROPINE MESYLATE 1 MG TABLET PO SCH ×2 (08:08→16:35)
[2018-08-01] MEDS: THIAMINE HCL 100 MG TABLET PO SCH ×2 (08:08→16:35)
[2018-08-01] MEDS: PANTOPRAZOLE SODIUM 40 MG DR TABLET PO SCH (08:08)
[2018-08-01] MEDS: GABAPENTIN 400 MG CAPSULE PO SCH ×3 (08:08→16:35)
[2018-08-01] MEDS: FOLIC ACID 1 MG TABLET PO SCH (08:09)
[2018-08-01] MEDS: NICOTINE 21 MG/24 HOUR PATCH TD SCH ×2 (08:09→09:00)
[2018-08-01] MEDS: CYCLOBENZAPRINE HCL 10 MG TABLET PO SCH ×3 (08:10→16:40)
[2018-08-01 08:44] VITALS: BP 116/67
[2018-08-01 11:09] LABS: GLUCOMETER DEV NAME(LOC) BV2S.; GLUCOSE,POINT OF CARE 93 MG/DL (70-110)
[2018-08-01 16:06] VITALS: BP 125/70
[2018-08-01 16:54] LABS: GLUCOMETER DEV NAME(LOC) BV2S.; GLUCOSE,POINT OF CARE 93 MG/DL (70-110)
[2018-08-01] MEDS: MIRTAZAPINE 15 MG TABLET PO SCH (20:22)
[2018-08-01] MEDS: ESZOPICLONE 3 MG TABLET PO SCH (20:22)
[2018-08-01] MEDS: PRAZOSIN HCL 1 MG CAPSULE PO SCH (20:22)
[2018-08-01] MEDS: HALOPERIDOL 10 MG TABLET PO SCH (20:22)
[2018-08-01 20:49] LABS: GLUCOMETER DEV NAME(LOC) BV2S.; GLUCOSE,POINT OF CARE 127 MG/DL (70-110)
[2018-08-02 04:50] VITALS: BP 121/60
[2018-08-02] MEDS: LORazepam 1 MG TABLET PO PRN ×2 (05:04→10:32)
[2018-08-02] MEDS: IBUPROFEN 600 MG TABLET PO PRN (05:06)
[2018-08-02] MEDS: LEVOTHYROXINE SODIUM 50 MCG TABLET PO SCH (06:47)
[2018-08-02 08:11] VITALS: BP 110/56
[2018-08-02] MEDS: ACETAMINOPHEN 325 MG TABLET PO SCH ×3 (09:44→16:14)
[2018-08-02] MEDS: BENZTROPINE MESYLATE 1 MG TABLET PO SCH ×2 (09:44→16:13)
[2018-08-02] MEDS: FOLIC ACID 1 MG TABLET PO SCH (09:44)
[2018-08-02] MEDS: PANTOPRAZOLE SODIUM 40 MG DR TABLET PO SCH (09:45)
[2018-08-02] MEDS: MULTIVITAMINS WITH MINERALS, THERAPEUTIC TABLET PO SCH (09:45)
[2018-08-02] MEDS: CYCLOBENZAPRINE HCL 10 MG TABLET PO SCH ×3 (09:45→16:14)
[2018-08-02] MEDS: GABAPENTIN 400 MG CAPSULE PO SCH ×3 (09:45→16:13)
[2018-08-02] MEDS: THIAMINE HCL 100 MG TABLET PO SCH ×2 (09:45→16:13)
[2018-08-02] MEDS: NICOTINE 21 MG/24 HOUR PATCH TD SCH (09:46)
[2018-08-02 11:04] LABS: GLUCOMETER DEV NAME(LOC) BV2S.; GLUCOSE,POINT OF CARE 129 MG/DL (70-110)
[2018-08-02 11:29] LABS: GLUCOMETER DEV NAME(LOC) BV2S.; GLUCOSE,POINT OF CARE 84 MG/DL (70-110)
[2018-08-02 16:24] VITALS: BP 142/83
[2018-08-02 17:04] LABS: GLUCOMETER DEV NAME(LOC) BV2S.; GLUCOSE,POINT OF CARE 96 MG/DL (70-110)
[2018-08-02] MEDS: MIRTAZAPINE 15 MG TABLET PO SCH (20:11)
[2018-08-02] MEDS: PRAZOSIN HCL 1 MG CAPSULE PO SCH (20:11)
[2018-08-02] MEDS: ESZOPICLONE 3 MG TABLET PO SCH (20:11)
[2018-08-02] MEDS: HALOPERIDOL 10 MG TABLET PO SCH (20:12)
[2018-08-02 20:23] LABS: GLUCOMETER DEV NAME(LOC) BV2S.; GLUCOSE,POINT OF CARE 161 MG/DL (70-110)
[2018-08-03 03:15] VITALS: BP 124/85
[2018-08-03] MEDS: LORazepam 1 MG TABLET PO PRN ×3 (03:17→17:11)
[2018-08-03] MEDS: LEVOTHYROXINE SODIUM 50 MCG TABLET PO SCH (05:38)
[2018-08-03] MEDS: ACETAMINOPHEN 325 MG TABLET PO SCH ×3 (05:39→16:50)
[2018-08-03 05:55] LABS: GLUCOMETER DEV NAME(LOC) BV2S.; GLUCOSE,POINT OF CARE 140 MG/DL (70-110)
[2018-08-03 08:00] VITALS: BP 124/75
[2018-08-03] MEDS: GABAPENTIN 400 MG CAPSULE PO SCH ×3 (08:31→16:51)
[2018-08-03] MEDS: THIAMINE HCL 100 MG TABLET PO SCH ×2 (08:31→16:51)
[2018-08-03] MEDS: FOLIC ACID 1 MG TABLET PO SCH (08:31)
[2018-08-03] MEDS: PANTOPRAZOLE SODIUM 40 MG DR TABLET PO SCH (08:31)
[2018-08-03] MEDS: MULTIVITAMINS WITH MINERALS, THERAPEUTIC TABLET PO SCH (08:31)
[2018-08-03] MEDS: CYCLOBENZAPRINE HCL 10 MG TABLET PO SCH ×3 (08:32→16:51)
[2018-08-03] MEDS: BENZTROPINE MESYLATE 1 MG TABLET PO SCH ×2 (08:32→16:51)
[2018-08-03] MEDS: NICOTINE 21 MG/24 HOUR PATCH TD SCH (08:35)
[2018-08-03 10:59] LABS: GLUCOMETER DEV NAME(LOC) BV2S.; GLUCOSE,POINT OF CARE 108 MG/DL (70-110)
[2018-08-03] MEDS ORDERED: HALO10 PO (15:57)
[2018-08-03] MEDS ORDERED: MIRT15 PO (15:57)
[2018-08-03 16:36] VITALS: BP 140/68
[2018-08-03] MEDS: ESZOPICLONE 3 MG TABLET PO SCH (20:31)
[2018-08-03] MEDS: MIRTAZAPINE 15 MG TABLET PO SCH (20:31)
[2018-08-03] MEDS: PRAZOSIN HCL 1 MG CAPSULE PO SCH (20:31)
[2018-08-03 20:59] LABS: GLUCOMETER DEV NAME(LOC) BV2S.; GLUCOSE,POINT OF CARE 122 MG/DL (70-110)
[2018-08-03] MEDS ORDERED: HALOPERIDOL 10 MG TABLET PO SCH (21:00)
[2018-08-04 00:05] VITALS: BP 131/86
[2018-08-04 01:28] VITALS: BP 147/66
[2018-08-04] MEDS: LORazepam 1 MG TABLET PO PRN (01:28)
[2018-08-04] MEDS: IBUPROFEN 600 MG TABLET PO PRN (02:30)
[2018-08-04] MEDS: LEVOTHYROXINE SODIUM 50 MCG TABLET PO SCH (05:42)
[2018-08-04] MEDS: ACETAMINOPHEN 325 MG TABLET PO SCH (05:43)
[2018-08-04 05:54] LABS: GLUCOMETER DEV NAME(LOC) BV2S.; GLUCOSE,POINT OF CARE 130 MG/DL (70-110)
[2018-08-04] MEDS: FOLIC ACID 1 MG TABLET PO SCH (08:24)
[2018-08-04] MEDS: BENZTROPINE MESYLATE 1 MG TABLET PO SCH (08:24)
[2018-08-04] MEDS: MULTIVITAMINS WITH MINERALS, THERAPEUTIC TABLET PO SCH (08:24)
[2018-08-04] MEDS: THIAMINE HCL 100 MG TABLET PO SCH (08:24)
[2018-08-04] MEDS: CYCLOBENZAPRINE HCL 10 MG TABLET PO SCH (08:24)
[2018-08-04] MEDS: PANTOPRAZOLE SODIUM 40 MG DR TABLET PO SCH (08:24)
[2018-08-04] MEDS: GABAPENTIN 400 MG CAPSULE PO SCH (08:24)
[2018-08-04] MEDS: NICOTINE 21 MG/24 HOUR PATCH TD SCH (08:25)
[2018-08-04 08:29] VITALS: BP 158/64
[2018-08-04] MEDS ORDERED: CYCL10 PO (08:37)
[2018-08-04] MEDS ORDERED: LEVO50 PO (08:38)
[2018-08-04] MEDS ORDERED: PANT40TA25 PO (08:38)
[2018-08-04] MEDS ORDERED: PRAZ1 PO (08:39)
[2018-08-04] MEDS ORDERED: THIA100T67 PO (08:39)
[2018-08-11] MEDS ORDERED: HALOPERIDOL DECANOATE 50 MG/ML VIAL IM SCH (09:00)
== END 2018-08-04 09:50 | disposition home or self-care (01) | DRG 885 ==
LOC: B2S 20:44
PROVIDERS: ADMIT Psychiatry & Neurology Psychiatry; ATTEND Psychiatry & Neurology Psychiatry
DX: F25.1 Schizoaffective disorder, depressive type (principal); E03.9 Hypothyroidism, unspecified; F17.210 Nicotine dependence, cigarettes, uncomplicated; F29 Unspecified psychosis not due to a substance or known physiological condition; F32.9 Major depressive disorder, single episode, unspecified; F41.0 Panic disorder [episodic paroxysmal anxiety]; F43.10 Post-traumatic stress disorder, unspecified; G47.00 Insomnia, unspecified; K21.9 Gastro-esophageal reflux disease without esophagitis; K46.9 Unspecified abdominal hernia without obstruction or gangrene; M19.90 Unspecified osteoarthritis, unspecified site; Z79.899 Other long term (current) drug therapy; Z85.3 Personal history of malignant neoplasm of breast; Z90.13 Acquired absence of bilateral breasts and nipples; Z91.14 Patient's other noncompliance with medication regimen; Z93.3 Colostomy status; Z99.3 Dependence on wheelchair
CPT/HCPCS: 80173; 83036; 84439; 84443; 87081; J1631

== ENCOUNTER → 2018-08-13 | Outpatient (CLI) | payer MEDICARE, MEDICAID ==
[~2018-08-13] MED LIST changes: +BENZ1TAB10 PO; +CYCL10 PO; +ESZO3 PO; -GABA-531 PO; +GABA-533 PO; +HALO10 PO; +HALO50VI4 IM; -LEVO25TA9 PO; +LEVO50 PO; +PANT40TA25 PO; +PRAZ1 PO; -QUET200T29 PO; +THIA100T67 PO
== END | disposition home or self-care (01) ==
LOC: RADPV 12:47
PROVIDERS: ATTEND Legal Medicine
DX: M16.0 Bilateral primary osteoarthritis of hip (principal)
CPT/HCPCS: 73521

== ENCOUNTER 2018-10-15 10:59 | Emergency (ER) | payer MEDICARE, OTHER ==
[~2018-10-15] VITALS: Ht 149.9 cm; Wt 95.0 kg
[2018-10-15 11:30] LABS: GLUCOSE,POINT OF CARE 139 MG/DL (70-110)
[2018-10-15] MEDS ORDERED: DiphenhydrAMINE HCL 25 MG CAPSULE PO ONE (12:15)
[2018-10-15] MEDS ORDERED: IPRATROPIUM BROMIDE 0.5 MG/2.5 ML NEB SOLUTION NEB ONE (12:15)
[2018-10-15] MEDS ORDERED: ALBUTEROL SULFATE 2.5 MG/0.5 ML NEB SOLUTION NEB ONE (12:15)
[2018-10-15] MEDS ORDERED: ACETAMINOPHEN 500 MG TABLET PO ONE (12:15)
[2018-10-15 13:52] VITALS: BP 144/67
== END 2018-10-15 15:28 | disposition home or self-care (01) ==
LOC: EMS 10:59
DX: S60.462A Insect bite (nonvenomous) of right middle finger, initial encounter (principal); M79.89 Other specified soft tissue disorders; F17.210 Nicotine dependence, cigarettes, uncomplicated; F41.9 Anxiety disorder, unspecified; J45.909 Unspecified asthma, uncomplicated; F31.9 Bipolar disorder, unspecified; E11.9 Type 2 diabetes mellitus without complications; K21.9 Gastro-esophageal reflux disease without esophagitis; E78.00 Pure hypercholesterolemia, unspecified; E03.9 Hypothyroidism, unspecified; I10 Essential (primary) hypertension; M19.90 Unspecified osteoarthritis, unspecified site; W57.XXXA Bitten or stung by nonvenomous insect and other nonvenomous arthropods, initial encounter; Y93.89 Activity, other specified; Y92.89 Other specified places as the place of occurrence of the external cause; Y99.8 Other external cause status
CPT/HCPCS: 94640; 99406

== ENCOUNTER 2018-10-22 09:04 | Inpatient (IN) | payer MEDICARE, OTHER ==
[~2018-10-22] VITALS: Ht 157.5 cm; Wt 104.9 kg
[2018-10-22] MEDS ORDERED: BACL10TA PO (09:20)
[2018-10-22] MEDS ORDERED: QUET25TA PO (09:20)
[2018-10-22] MEDS ORDERED: TRAZ-252 PO (09:20)
[2018-10-22] MEDS ORDERED: SODIUM CHLORIDE 0.9% 1,000 ML IV ONE ×2 (09:30→11:30)
[2018-10-22 09:34] LABS: BASOPHILS % (AUTO) 0.4 % (0.0-2.0); EOSINOPHILS % (AUTO) 0.4 % (1.0-6.0); HEMATOCRIT 44.2 % (36-46); HEMOGLOBIN 14.3 g/dL (12.0-16.0); LYMPHOCYTES # (AUTO) 0.7 K/uL (1.0-4.8); LYMPHOCYTES % (AUTO) 9.2 % (22.0-44.0); MEAN CORPUSCULAR HEMOGLOBIN 29.7 pg (26.0-34.0); MEAN CORPUSCULAR HGB CONC 32.5 G/dL (31.0-37.0); MEAN CORPUSCULAR VOLUME 92 fL (80-100); MONOCYTES # (AUTO) 0.3 K/uL (0.1-1.0); MONOCYTES % (AUTO) 4.2 % (2.0-9.0); NEUTROPHILS # (AUTO) 6.3 K/uL (1.8-7.7); PLATELET COUNT (AUTO) 403 K/uL (150-450); RED BLOOD CELL COUNT(AUTO) 4.82 MIL/uL (4.00-5.20); RED CELL DISTRIBUTION WIDTH 16.5 % (11.5-14.5)
[2018-10-22 09:39] LABS: NEUTROPHILS % (AUTO) 85.8 % (40.0-70.0)
[2018-10-22] MEDS ORDERED: PROPOFOL 1000 MG/ISO-OSM 100 ML IV ONE (09:40)
[2018-10-22] MEDS: PROPOFOL 1000 MG/ISO-OSM 100 ML IV PRN ×2 (09:43→15:12)
[2018-10-22 09:45] LABS: CALCIUM, TOTAL 9.7 mg/dL (8.8-10.5); CREATININE 1.22 mg/dL (0.60-1.30); POTASSIUM 4.5 mmol/L (3.5-5.1)
[2018-10-22 09:53] LABS: LACTIC ACID 1.2 mmol/L (0.4-2.0)
[2018-10-22 10:10] LABS: ALBUMIN 3.6 g/dL (3.4-5.0); BILIRUBIN,TOTAL 0.3 mg/dL (0.1-1.0); TOTAL PROTEIN, SERUM 7.6 g/dL (6.4-8.2)
[2018-10-22 10:11] LABS: ABG BASE EXCESS 0.3 mmol/L (-2.0-3.0); ABG CARBOXYHEMOGLOBIN 3.6 % (0.0-1.5); ABG METHEMOGLOBIN 0.3 % (0.0-1.5); ABG OXYGEN CONTENT 17.2 mL/dL (15.0-23.0); ABG OXYGEN SATURATION 98.4 % (95.0-98.0); ABG OXYHEMOGLOBIN 94.6 % (94.0-100.0); ABG PCO2 56 mmHg (35-45); ABG PH 7.298 (7.35-7.450); ABG TOTAL HEMOGLOBIN 12.7 G/dL (12.0-18.0); O2 DEVICE,BLOOD GAS VENTILATOR (ROOM AIR); PO2, ARTERIAL BG 151.2 mmHg (79.0-87.0); SITE, BLOOD GAS LFT RADIAL; SOURCE, BLOOD GAS ARTERIAL; TEMPERATURE, FAHRENHEIT, BG 98.6 FAHREN (96.0-98.6)
[2018-10-22 10:12] LABS: PEEP,BG 5 cm H2O; VT, ABG 400 ml
[2018-10-22 10:41] LABS: THYROID STIMULATING HORMONE 86.9 uIU/mL (0.36-3.74)
[2018-10-22 11:11] LABS: APPEARANCE,URINE CLEAR (CLEAR); BILIRUBIN,URINE NEGATIVE (NEGATIVE); GLUCOSE, URINE (UA) NEGATIVE (NEGATIVE); KETONES,URINE NEGATIVE (NEGATIVE); LEUKOCYTE ESTERASE ,URINE NEGATIVE (NEGATIVE); NITRATE,URINE NEGATIVE (NEGATIVE); OCCULT BLOOD,URINE NEGATIVE (NEGATIVE); PH,URINE 6.5 (5.0-8.0); PROTEIN,URINE NEGATIVE (NEGATIVE); UROBILINOGEN,URINE 0.2 mg/dL (<=1.0)
[2018-10-22] MEDS ORDERED: LEVOTHYROXINE SODIUM 100 MCG VIAL IVP ONE (11:45)
[2018-10-22] MEDS ORDERED: CefTRIAXone 1 GM/DEXTROSE 50 ML IV SCH (12:00)
[2018-10-22] MEDS ORDERED: ETOMIDATE 2 MG/ML 10 ML VIAL IVP ONE (12:00)
[2018-10-22] MEDS ORDERED: ROCURONIUM BROMIDE 10 MG/ML 5 ML VIAL IVP ONE (12:00)
[2018-10-22] MEDS: HYDROCORTISONE SOD SUCC 100 MG/2 ML VIAL IVP SCH ×2 (12:07→20:48)
[2018-10-22] MEDS ORDERED: THYROID 30 MG TABLET PO ONE (12:15)
[2018-10-22] MEDS ORDERED: ALBUTEROL SULFATE 2.5 MG/0.5 ML NEB SOLUTION NEB SCH (13:45)
[2018-10-22] MEDS ORDERED: BISACODYL 10 MG RECTAL RECTAL SUPPOSITORY PR PRN (13:45)
[2018-10-22] MEDS ORDERED: ONDANSETRON HCL 4 MG/2 ML VIAL IVP PRN (13:45)
[2018-10-22] MEDS ORDERED: ALBUTEROL SULFATE 2.5 MG/0.5 ML NEB SOLUTION NEB PRN (13:45)
[2018-10-22] MEDS ORDERED: IPRATROPIUM BROMIDE 0.5 MG/2.5 ML NEB SOLUTION NEB PRN (13:45)
[2018-10-22] MEDS ORDERED: IPRATROPIUM BROMIDE 0.5 MG/2.5 ML NEB SOLUTION NEB SCH (13:45)
[2018-10-22] MEDS: FAMOTIDINE 10 MG/ML 2 ML VIAL IVP SCH ×2 (14:00→23:27)
[2018-10-22] MEDS ORDERED: DEXTROSE 50%-WATER 25 GM/50 ML SYRINGE IVP PRN (14:00)
[2018-10-22] MEDS ORDERED: THYROID 60 MG TABLET PO ONE (14:00)
[2018-10-22] MEDS ORDERED: PIPERACILLIN/TAZO 3.375 GM/D5W 50 ML IV SCH (14:15)
[2018-10-22 14:25] LABS: GLUCOSE,POINT OF CARE 103 MG/DL (70-110)
[2018-10-22 15:00] VITALS: BP 123/64
[2018-10-22] MEDS: SODIUM CHLORIDE 0.9% 1,000 ML IV SCH (15:14)
[2018-10-22 16:00] VITALS: BP 159/68
[2018-10-22 16:39] LABS: GLUCOSE,POINT OF CARE 131 MG/DL (70-110)
[2018-10-22 17:11] LABS: CREATINE KINASE, TOTAL ONLY 429 U/L (26-192)
[2018-10-22 18:00] VITALS: BP 125/68
[2018-10-22] MEDS ORDERED: SODIUM CHLORIDE 0.9% 250 ML IV ONE (18:46)
[2018-10-22] MEDS: PIPERACILLIN/TAZO 3.375 GM/D5W 50 ML IV SCH ×2 (18:49→23:17)
[2018-10-22 20:00] VITALS: BP 150/55
[2018-10-22] MEDS: ALBUTEROL SULFATE 2.5 MG/0.5 ML NEB SOLUTION NEB SCH (20:00)
[2018-10-22] MEDS: IPRATROPIUM BROMIDE 0.5 MG/2.5 ML NEB SOLUTION NEB SCH (20:00)
[2018-10-22] MEDS: HEPARIN SODIUM,PORCINE 5,000 UNITS/ML VIAL SQ SCH (23:17)
[2018-10-23] VITALS: BP 138/49
[2018-10-23] MEDS: HYDROCORTISONE SOD SUCC 100 MG/2 ML VIAL IVP SCH ×4 (00:14→23:14)
[2018-10-23] MEDS: SODIUM CHLORIDE 0.9% 1,000 ML IV SCH ×3 (00:15→20:18)
[2018-10-23] MEDS: IPRATROPIUM BROMIDE 0.5 MG/2.5 ML NEB SOLUTION NEB SCH ×4 (02:08→21:49)
[2018-10-23] MEDS: ALBUTEROL SULFATE 2.5 MG/0.5 ML NEB SOLUTION NEB SCH ×4 (02:08→21:49)
[2018-10-23] MEDS: PROPOFOL 1000 MG/ISO-OSM 100 ML IV PRN ×5 (03:03→23:57)
[2018-10-23] MEDS ORDERED: SODIUM CHLORIDE 0.9% 250 ML IV ONE (03:10)
[2018-10-23 04:00] VITALS: BP 140/55
[2018-10-23] MEDS: PIPERACILLIN/TAZO 3.375 GM/D5W 50 ML IV SCH ×4 (05:05→21:36)
[2018-10-23] MEDS: HydrALAZINE HCL 20 MG/ML VIAL IVP PRN ×2 (05:06→17:10)
[2018-10-23 05:13] LABS: BASOPHILS % (AUTO) 0.5 % (0.0-2.0); EOSINOPHILS % (AUTO) 0.1 % (1.0-6.0); HEMATOCRIT 42.7 % (36-46); HEMOGLOBIN 13.9 g/dL (12.0-16.0); LYMPHOCYTES # (AUTO) 0.6 K/uL (1.0-4.8); LYMPHOCYTES % (AUTO) 6.3 % (22.0-44.0); MEAN CORPUSCULAR HEMOGLOBIN 30.2 pg (26.0-34.0); MEAN CORPUSCULAR HGB CONC 32.5 G/dL (31.0-37.0); MEAN CORPUSCULAR VOLUME 93 fL (80-100); MONOCYTES # (AUTO) 0.2 K/uL (0.1-1.0); MONOCYTES % (AUTO) 1.8 % (2.0-9.0); NEUTROPHILS # (AUTO) 9.2 K/uL (1.8-7.7); PLATELET COUNT (AUTO) 420 K/uL (150-450); RED CELL DISTRIBUTION WIDTH 16.7 % (11.5-14.5)
[2018-10-23 05:18] LABS: NEUTROPHILS % (AUTO) 91.3 % (40.0-70.0)
[2018-10-23 05:27] LABS: HEMOGLOBIN A1C 6.2 % (4.5-6.2)
[2018-10-23 05:28] LABS: ALBUMIN 3.1 g/dL (3.4-5.0); BILIRUBIN,TOTAL 0.3 mg/dL (0.1-1.0); CALCIUM, TOTAL 8.8 mg/dL (8.8-10.5); CHOL/HDL RATIO 6.1 (3.9-5.7); POTASSIUM 4.4 mmol/L (3.5-5.1); TOTAL PROTEIN, SERUM 7.1 g/dL (6.4-8.2)
[2018-10-23] MEDS: LEVOTHYROXINE SODIUM 100 MCG VIAL IVP SCH (06:19)
[2018-10-23 08:00] VITALS: BP 126/51
[2018-10-23 08:05] LABS: ABG A-A DIFF O2 169.5 mmHg (10-20.0); ABG BASE EXCESS -2.2 mmol/L (-2.0-3.0); ABG HCO3 22.7 mmol/L (22.0-26.0); ABG METHEMOGLOBIN 0.3 % (0.0-1.5); ABG OXYGEN CONTENT 17.5 mL/dL (15.0-23.0); ABG OXYGEN SATURATION 94.4 % (95.0-98.0); ABG OXYHEMOGLOBIN 93.2 % (94.0-100.0); ABG PCO2 40 mmHg (35-45); ABG TOTAL HEMOGLOBIN 13.3 G/dL (12.0-18.0); PO2, ARTERIAL BG 70.8 mmHg (79.0-87.0); SOURCE, BLOOD GAS ARTERIAL; TEMPERATURE, FAHRENHEIT, BG 97.3 FAHREN (96.0-98.6)
[2018-10-23 08:07] LABS: O2 DEVICE,BLOOD GAS VENTILATOR (ROOM AIR); PEEP,BG 5 cm H2O; SITE, BLOOD GAS RT RADIAL; VT, ABG 400 ml
[2018-10-23 08:15] LABS: GLUCOSE,POINT OF CARE 129 MG/DL (70-110)
[2018-10-23 08:15] LABS: GLUCOSE,POINT OF CARE 130 MG/DL (70-110)
[2018-10-23] MEDS: FAMOTIDINE 10 MG/ML 2 ML VIAL IVP SCH ×2 (09:43→21:20)
[2018-10-23] MEDS: HEPARIN SODIUM,PORCINE 5,000 UNITS/ML VIAL SQ SCH ×2 (09:44→20:19)
[2018-10-23] MEDS: LORazepam 2 MG/ML VIAL IVP PRN ×3 (11:57→17:09)
[2018-10-23 12:00] VITALS: BP 160/93
[2018-10-23 13:44] LABS: GLUCOSE,POINT OF CARE 170 MG/DL (70-110)
[2018-10-23 16:00] VITALS: BP 158/86
[2018-10-23] MEDS: INSULIN LISPRO 100 UNITS/ML SQ PRN ×2 (17:17→23:10)
[2018-10-23 18:16] LABS: GLUCOSE,POINT OF CARE 144 MG/DL (70-110)
[2018-10-23 20:00] VITALS: BP 148/91
[2018-10-23] MEDS: ATORVASTATIN CALCIUM 20 MG TABLET PO SCH (20:18)
[2018-10-24] VITALS: BP 101/44
[2018-10-24] MEDS: IPRATROPIUM BROMIDE 0.5 MG/2.5 ML NEB SOLUTION NEB SCH ×4 (01:23→20:17)
[2018-10-24] MEDS: ALBUTEROL SULFATE 2.5 MG/0.5 ML NEB SOLUTION NEB SCH ×4 (01:23→20:17)
[2018-10-24] MEDS: PIPERACILLIN/TAZO 3.375 GM/D5W 50 ML IV SCH ×4 (03:56→21:46)
[2018-10-24 04:00] VITALS: BP 113/47
[2018-10-24] MEDS: SODIUM CHLORIDE 0.9% 1,000 ML IV SCH (05:24)
[2018-10-24] MEDS: PROPOFOL 1000 MG/ISO-OSM 100 ML IV PRN ×2 (05:25→09:52)
[2018-10-24] MEDS: HydrALAZINE HCL 20 MG/ML VIAL IVP PRN ×3 (05:35→17:24)
[2018-10-24 05:41] LABS: BASOPHILS % (AUTO) 0.6 % (0.0-2.0); EOSINOPHILS % (AUTO) 0 % (1.0-6.0); HEMATOCRIT 40.5 % (36-46); LYMPHOCYTES # (AUTO) 0.8 K/uL (1.0-4.8); LYMPHOCYTES % (AUTO) 8.3 % (22.0-44.0); MEAN CORPUSCULAR HEMOGLOBIN 29.6 pg (26.0-34.0); MEAN CORPUSCULAR HGB CONC 31.9 G/dL (31.0-37.0); MEAN CORPUSCULAR VOLUME 93 fL (80-100); MONOCYTES # (AUTO) 0.4 K/uL (0.1-1.0); MONOCYTES % (AUTO) 3.7 % (2.0-9.0); NEUTROPHILS # (AUTO) 8.4 K/uL (1.8-7.7); PLATELET COUNT (AUTO) 386 K/uL (150-450); RED BLOOD CELL COUNT(AUTO) 4.37 MIL/uL (4.00-5.20); RED CELL DISTRIBUTION WIDTH 17.2 % (11.5-14.5)
[2018-10-24 05:42] LABS: NEUTROPHILS % (AUTO) 87.4 % (40.0-70.0)
[2018-10-24 05:56] LABS: BILIRUBIN,TOTAL 0.2 mg/dL (0.1-1.0); CALCIUM, TOTAL 8.4 mg/dL (8.8-10.5); CREATININE 1.05 mg/dL (0.60-1.30); POTASSIUM 3.9 mmol/L (3.5-5.1); TOTAL PROTEIN, SERUM 6.2 g/dL (6.4-8.2)
[2018-10-24] MEDS: INSULIN LISPRO 100 UNITS/ML SQ PRN (05:58)
[2018-10-24] MEDS: LEVOTHYROXINE SODIUM 100 MCG VIAL IVP SCH (06:50)
[2018-10-24] MEDS: HYDROCORTISONE SOD SUCC 100 MG/2 ML VIAL IVP SCH ×2 (07:54→16:20)
[2018-10-24] MEDS: HEPARIN SODIUM,PORCINE 5,000 UNITS/ML VIAL SQ SCH ×2 (07:54→21:00)
[2018-10-24] MEDS: FAMOTIDINE 10 MG/ML 2 ML VIAL IVP SCH ×2 (07:54→21:43)
[2018-10-24 08:00] VITALS: BP 162/76
[2018-10-24 08:00] LABS: GLUCOSE,POINT OF CARE 128 MG/DL (70-110)
[2018-10-24 08:00] LABS: GLUCOSE,POINT OF CARE 131 MG/DL (70-110)
[2018-10-24] MEDS ORDERED: PROPOFOL 1000 MG/ISO-OSM 100 ML IV PRN (09:54)
[2018-10-24] MEDS: METOPROLOL TARTRATE 25 MG TABLET PO SCH ×2 (10:52→21:43)
[2018-10-24] MEDS: LORazepam 2 MG/ML VIAL IVP PRN ×2 (11:07→21:46)
[2018-10-24 12:00] VITALS: BP 169/80
[2018-10-24] MEDS: ACETAMINOPHEN 325 MG TABLET PO PRN (12:32)
[2018-10-24] MEDS: LISINOPRIL 5 MG TABLET PO SCH (12:33)
[2018-10-24 13:14] LABS: ABG A-A DIFF O2 121.3 mmHg (10-20.0); ABG BASE EXCESS -1.7 mmol/L (-2.0-3.0); ABG CARBOXYHEMOGLOBIN 0.6 % (0.0-1.5); ABG HCO3 23.2 mmol/L (22.0-26.0); ABG METHEMOGLOBIN 0.3 % (0.0-1.5); ABG OXYGEN CONTENT 18.3 mL/dL (15.0-23.0); ABG OXYGEN SATURATION 98.1 % (95.0-98.0); ABG OXYHEMOGLOBIN 97.2 % (94.0-100.0); ABG PCO2 41 mmHg (35-45); ABG PH 7.373 (7.35-7.450); ABG TOTAL HEMOGLOBIN 13.3 G/dL (12.0-18.0); O2 DEVICE,BLOOD GAS VENTILATOR (ROOM AIR); PEEP,BG 5 cm H2O; PO2, ARTERIAL BG 116.1 mmHg (79.0-87.0); PRESSURE SUPPORT, BG 8 cm H2O; SITE, BLOOD GAS RT RADIAL; SOURCE, BLOOD GAS ARTERIAL; TEMPERATURE, FAHRENHEIT, BG 98.9 FAHREN (96.0-98.6); VENT MODE, BG CPAP (ROOM AIR); VT, ABG 386 ml
[2018-10-24 13:15] LABS: SPONTANEOUS VT, BG 386 ml
[2018-10-24 14:40] LABS: GLUCOSE,POINT OF CARE 130 MG/DL (70-110)
[2018-10-24 16:00] VITALS: BP 190/89
[2018-10-24] MEDS: METOPROLOL TARTRATE 5 MG/5 ML VIAL IVP PRN (16:22)
[2018-10-24 18:15] LABS: GLUCOSE,POINT OF CARE 134 MG/DL (70-110)
[2018-10-24 20:00] VITALS: BP 168/95
[2018-10-24] MEDS: ATORVASTATIN CALCIUM 20 MG TABLET PO SCH (21:43)
[2018-10-25] VITALS (8 sets, daily range): BP systolic 143–171; BP diastolic 83–98
[2018-10-25] MEDS: HYDROCORTISONE SOD SUCC 100 MG/2 ML VIAL IVP SCH ×4 (00:03→23:15)
[2018-10-25] MEDS: HydrALAZINE HCL 20 MG/ML VIAL IVP PRN ×3 (00:58→14:13)
[2018-10-25 02:15] LABS: GLUCOSE,POINT OF CARE 150 MG/DL (70-110)
[2018-10-25] MEDS: ALBUTEROL SULFATE 2.5 MG/0.5 ML NEB SOLUTION NEB SCH ×4 (02:32→19:49)
[2018-10-25] MEDS: IPRATROPIUM BROMIDE 0.5 MG/2.5 ML NEB SOLUTION NEB SCH ×4 (02:32→19:49)
[2018-10-25] MEDS ORDERED: SODIUM CHLORIDE 0.9% 250 ML IV ONE ×2 (04:04→21:44)
[2018-10-25] MEDS: PIPERACILLIN/TAZO 3.375 GM/D5W 50 ML IV SCH ×4 (04:05→21:55)
[2018-10-25 05:37] LABS: BASOPHILS % (AUTO) 0.4 % (0.0-2.0); EOSINOPHILS % (AUTO) 0 % (1.0-6.0); HEMATOCRIT 39.9 % (36-46); LYMPHOCYTES # (AUTO) 0.5 K/uL (1.0-4.8); LYMPHOCYTES % (AUTO) 4.9 % (22.0-44.0); MEAN CORPUSCULAR HEMOGLOBIN 29.9 pg (26.0-34.0); MEAN CORPUSCULAR HGB CONC 32.6 G/dL (31.0-37.0); MEAN CORPUSCULAR VOLUME 92 fL (80-100); MONOCYTES # (AUTO) 0.3 K/uL (0.1-1.0); NEUTROPHILS # (AUTO) 9.8 K/uL (1.8-7.7); NEUTROPHILS % (AUTO) 91.7 % (40.0-70.0); PLATELET COUNT (AUTO) 404 K/uL (150-450); RED BLOOD CELL COUNT(AUTO) 4.36 MIL/uL (4.00-5.20); RED CELL DISTRIBUTION WIDTH 17.1 % (11.5-14.5)
[2018-10-25] MEDS: INSULIN LISPRO 100 UNITS/ML SQ PRN ×2 (05:44→13:20)
[2018-10-25] MEDS: LEVOTHYROXINE SODIUM 100 MCG VIAL IVP SCH (05:45)
[2018-10-25 05:52] LABS: ALANINE AMINOTRANSFERASE 78 U/L (12-78); ALBUMIN 3.1 g/dL (3.4-5.0); ALKALINE PHOSPHATASE 118 U/L (46-116); ANION GAP 9 mmol/L (8-16); ASPARTATE AMINOTRANSFERASE 62 U/L (15-37); BILIRUBIN,TOTAL 0.5 mg/dL (0.1-1.0); CALCIUM, TOTAL 8.8 mg/dL (8.8-10.5); CARBON DIOXIDE 27 mmol/L (22-29); CHLORIDE 98 mmol/L (98-107); CREATININE 0.87 mg/dL (0.60-1.30); GLOMERULAR FILTR. RATE CALC > 60 mL/min (>60); GLUCOSE,RANDOM 161 mg/dL (70-110); POTASSIUM 3.4 mmol/L (3.5-5.1); SODIUM SERUM 134 mmol/L (136-145); TOTAL PROTEIN, SERUM 6.9 g/dL (6.4-8.2); UREA NITROGEN, BLOOD 15 mg/dL (7-18)
[2018-10-25] MEDS: METOPROLOL TARTRATE 5 MG/5 ML VIAL IVP PRN ×2 (06:17→10:11)
[2018-10-25] MEDS: FAMOTIDINE 10 MG/ML 2 ML VIAL IVP SCH ×2 (07:47→20:42)
[2018-10-25] MEDS: NICOTINE 14 MG/24 HOUR PATCH TD SCH (07:48)
[2018-10-25] MEDS: METOPROLOL TARTRATE 25 MG TABLET PO SCH ×2 (07:49→20:42)
[2018-10-25] MEDS: ACETAMINOPHEN 325 MG TABLET PO PRN (07:50)
[2018-10-25] MEDS: LISINOPRIL 5 MG TABLET PO SCH (08:21)
[2018-10-25] MEDS: HEPARIN SODIUM,PORCINE 5,000 UNITS/ML VIAL SQ SCH ×2 (09:00→20:42)
[2018-10-25 10:20] LABS: GLUCOSE,POINT OF CARE 159 MG/DL (70-110)
[2018-10-25] MEDS: QUEtiapine FUMARATE 25 MG TABLET PO SCH ×2 (15:26→20:42)
[2018-10-25 20:35] LABS: GLUCOSE,POINT OF CARE 147 MG/DL (70-110)
[2018-10-25] MEDS: ATORVASTATIN CALCIUM 20 MG TABLET PO SCH (20:43)
[2018-10-25] MEDS ORDERED: METOPROLOL TARTRATE 5 MG/5 ML VIAL IVP PRN (21:00)
[2018-10-25] MEDS ORDERED: HALOPERIDOL 10 MG TABLET PO SCH (21:00)
[2018-10-26] MEDS: IPRATROPIUM BROMIDE 0.5 MG/2.5 ML NEB SOLUTION NEB SCH ×3 (02:25→14:43)
[2018-10-26] MEDS: ALBUTEROL SULFATE 2.5 MG/0.5 ML NEB SOLUTION NEB SCH ×3 (02:26→14:43)
[2018-10-26] MEDS: PIPERACILLIN/TAZO 3.375 GM/D5W 50 ML IV SCH ×2 (04:43→10:25)
[2018-10-26 05:00] VITALS: BP 150/88
[2018-10-26 05:29] LABS: BASOPHILS % (AUTO) 0.5 % (0.0-2.0); EOSINOPHILS % (AUTO) 0.2 % (1.0-6.0); HEMATOCRIT 37.8 % (36-46); HEMOGLOBIN 12.3 g/dL (12.0-16.0); LYMPHOCYTES # (AUTO) 0.8 K/uL (1.0-4.8); LYMPHOCYTES % (AUTO) 11.3 % (22.0-44.0); MEAN CORPUSCULAR HEMOGLOBIN 29.7 pg (26.0-34.0); MEAN CORPUSCULAR HGB CONC 32.7 G/dL (31.0-37.0); MEAN CORPUSCULAR VOLUME 91 fL (80-100); MONOCYTES # (AUTO) 0.5 K/uL (0.1-1.0); MONOCYTES % (AUTO) 7.6 % (2.0-9.0); NEUTROPHILS # (AUTO) 5.7 K/uL (1.8-7.7); NEUTROPHILS % (AUTO) 80.4 % (40.0-70.0); PLATELET COUNT (AUTO) 374 K/uL (150-450); RED BLOOD CELL COUNT(AUTO) 4.16 MIL/uL (4.00-5.20); RED CELL DISTRIBUTION WIDTH 16.6 % (11.5-14.5)
[2018-10-26] MEDS ORDERED: ALBUTEROL SULFATE 2.5 MG/0.5 ML NEB SOLUTION NEB PRN (05:30)
[2018-10-26] MEDS ORDERED: IPRATROPIUM BROMIDE 0.5 MG/2.5 ML NEB SOLUTION NEB PRN (05:30)
[2018-10-26 05:52] LABS: ALANINE AMINOTRANSFERASE 69 U/L (12-78); ALBUMIN 3.2 g/dL (3.4-5.0); ALKALINE PHOSPHATASE 107 U/L (46-116); ANION GAP 6 mmol/L (8-16); ASPARTATE AMINOTRANSFERASE 48 U/L (15-37); BILIRUBIN,TOTAL 0.5 mg/dL (0.1-1.0); CALCIUM, TOTAL 9.1 mg/dL (8.8-10.5); CARBON DIOXIDE 29 mmol/L (22-29); CHLORIDE 99 mmol/L (98-107); CREATININE 0.83 mg/dL (0.60-1.30); GLOMERULAR FILTR. RATE CALC > 60 mL/min (>60); GLUCOSE,RANDOM 138 mg/dL (70-110); POTASSIUM 3.4 mmol/L (3.5-5.1); SODIUM SERUM 134 mmol/L (136-145); TOTAL PROTEIN, SERUM 6.4 g/dL (6.4-8.2); UREA NITROGEN, BLOOD 15 mg/dL (7-18)
[2018-10-26] MEDS: INSULIN LISPRO 100 UNITS/ML SQ PRN (06:27)
[2018-10-26] MEDS: LEVOTHYROXINE SODIUM 100 MCG VIAL IVP SCH ×2 (06:30→10:24)
[2018-10-26 08:05] VITALS: BP 151/107
[2018-10-26] MEDS: HEPARIN SODIUM,PORCINE 5,000 UNITS/ML VIAL SQ SCH (08:13)
[2018-10-26] MEDS: FAMOTIDINE 10 MG/ML 2 ML VIAL IVP SCH (08:13)
[2018-10-26] MEDS: METOPROLOL TARTRATE 25 MG TABLET PO SCH (08:14)
[2018-10-26] MEDS: QUEtiapine FUMARATE 25 MG TABLET PO SCH ×2 (08:14→16:13)
[2018-10-26] MEDS: HYDROCORTISONE SOD SUCC 100 MG/2 ML VIAL IVP SCH ×2 (08:17→16:09)
[2018-10-26] MEDS: NICOTINE 14 MG/24 HOUR PATCH TD SCH (08:17)
[2018-10-26] MEDS: ACETAMINOPHEN 325 MG TABLET PO PRN (08:29)
[2018-10-26] MEDS ORDERED: DENTURE ADHESIVE 68 GM CREAM DT PRN (08:45)
[2018-10-26] MEDS ORDERED: LISINOPRIL 5 MG TABLET PO SCH (09:00)
[2018-10-26] MEDS ORDERED: POTASSIUM CHLORIDE 20 MEQ ER TABLET PO ONE (10:30)
[2018-10-26 11:25] LABS: GLUCOMETER DEV NAME(LOC) 5S.1; GLUCOSE,POINT OF CARE 115 MG/DL (70-110)
[2018-10-26 11:26] LABS: GLUCOMETER DEV NAME(LOC) 5S.1; GLUCOSE,POINT OF CARE 118 MG/DL (70-110)
[2018-10-26 11:26] LABS: GLUCOMETER DEV NAME(LOC) 5S.1; GLUCOSE,POINT OF CARE 126 MG/DL (70-110)
[2018-10-26 12:09] VITALS: BP 164/93
[2018-10-26 12:44] LABS: FREE T4 (FREE THYROXINE) 1.09 ng/dL (0.76-1.46); THYROID STIMULATING HORMONE 25.86 uIU/mL (0.36-3.74)
[2018-10-26] MEDS ORDERED: CEFUROXIME AXETIL 250 MG TABLET PO SCH (14:00)
[2018-10-26 15:37] VITALS: BP 140/85
[2018-10-26 16:51] LABS: GLUCOMETER DEV NAME(LOC) 5N.2; GLUCOSE,POINT OF CARE 158 MG/DL (70-110)
[2018-10-26 16:52] LABS: GLUCOMETER DEV NAME(LOC) 5N.2; GLUCOSE,POINT OF CARE 124 MG/DL (70-110)
[2018-10-26 18:45] LABS: GLUCOMETER DEV NAME(LOC) 5S.1; GLUCOSE,POINT OF CARE 121 MG/DL (70-110)
[2018-10-27] MEDS ORDERED: LEVOTHYROXINE SODIUM 200 MCG TABLET PO SCH (06:30)
== END 2018-10-26 17:00 | DRG 208 ==
LOC: EMS 09:06 → ICU 13:51 → 5S 10-25 15:55
PROVIDERS: ADMIT Internal Medicine; ATTEND Internal Medicine
PROC: 5A1945Z Respiratory Ventilation, 24-96 Consecutive Hours (ICD-10-PCS; principal; 2018-10-22)
PROC: 0BH17EZ Insertion of Endotracheal Airway into Trachea, Via Natural or Artificial Opening (ICD-10-PCS; 2018-10-22)
DX: J96.02 Acute respiratory failure with hypercapnia (principal); J69.0 Pneumonitis due to inhalation of food and vomit; E03.5 Myxedema coma; E87.2 Acidosis; J44.1 Chronic obstructive pulmonary disease with (acute) exacerbation; G93.40 Encephalopathy, unspecified; Z68.41 Body mass index [BMI] 40.0-44.9, adult; R65.10 Systemic inflammatory response syndrome (SIRS) of non-infectious origin without acute organ dysfunction; J96.01 Acute respiratory failure with hypoxia; E66.01 Morbid (severe) obesity due to excess calories; I10 Essential (primary) hypertension; E11.9 Type 2 diabetes mellitus without complications; K21.9 Gastro-esophageal reflux disease without esophagitis; E78.00 Pure hypercholesterolemia, unspecified; E78.5 Hyperlipidemia, unspecified; F41.9 Anxiety disorder, unspecified; F32.9 Major depressive disorder, single episode, unspecified; F17.200 Nicotine dependence, unspecified, uncomplicated; F25.9 Schizoaffective disorder, unspecified; K59.00 Constipation, unspecified; F41.1 Generalized anxiety disorder; M19.90 Unspecified osteoarthritis, unspecified site; F60.0 Paranoid personality disorder; Z79.890 Hormone replacement therapy; Z82.49 Family history of ischemic heart disease and other diseases of the circulatory system; Z83.3 Family history of diabetes mellitus; Z90.13 Acquired absence of bilateral breasts and nipples; Z93.3 Colostomy status
CPT/HCPCS: 36600; 70450; 72125; 74018; 82533; 82805; 83036; 83605; 84145; 84439; 84443; 84481; 87040; 87081; 93005; 93306; 94002; 94003; 94640; 96365; 97162; 97166; 97530; 97535; 99291; G0378; J0360; J0696; J1644; J1720; J2060; J2543; J2704; J3490; J7030; J7050

== ENCOUNTER 2018-12-07 11:20 | Emergency (ER) | payer MEDICARE, OTHER ==
[~2018-12-07] VITALS: Ht 149.9 cm; Wt 98.2 kg
[~2018-12-07 11:20] MED LIST changes: +ATOR20TA86 PO; -BENZ1TAB10 PO; -CYCL10 PO; +DICL4100G TP; +DSS100 PO; +DULO20CA30 PO; -ESZO3 PO; +FAMO20 PO; -GABA-533 PO; -HALO50VI4 IM; +LACT1TAB11 PO; +LEVO200 PO; -LEVO50 PO; +LISI-660 PO; +MELA5TAB3 PO; +METF500T20 PO; +METO25 PO; -MIRT15 PO; +NICO1PAT49 TD; -PANT40TA25 PO; -PRAZ1 PO; +PRED10 PO; +PRED20 PO; +QUET200T PO; +QUET25TA PO; -THIA100T67 PO; +TRIH5TAB2 PO
[2018-12-07] MEDS ORDERED: DEXAMETHASONE 4 MG TABLET PO ONE (12:15)
[2018-12-07] MEDS ORDERED: DiphenhydrAMINE HCL 25 MG CAPSULE PO ONE (12:15)
[2018-12-07 13:27] VITALS: BP 121/52
== END 2018-12-07 13:34 | disposition home or self-care (01) ==
LOC: EMS 11:22
DX: T63.441A Toxic effect of venom of bees, accidental (unintentional), initial encounter (principal); F41.9 Anxiety disorder, unspecified; F31.9 Bipolar disorder, unspecified; J45.909 Unspecified asthma, uncomplicated; E11.9 Type 2 diabetes mellitus without complications; K21.9 Gastro-esophageal reflux disease without esophagitis; E78.00 Pure hypercholesterolemia, unspecified; F17.210 Nicotine dependence, cigarettes, uncomplicated; E03.9 Hypothyroidism, unspecified; Z79.899 Other long term (current) drug therapy; Y92.89 Other specified places as the place of occurrence of the external cause
CPT/HCPCS: 82962; 99283; 99406; J8540

== ENCOUNTER 2019-05-04 12:20 | Inpatient (IN) | payer MEDICARE, OTHER ==
[~2019-05-04] VITALS: Ht 152.4 cm; Wt 95.2 kg
[~2019-05-04 12:20] MED LIST changes: -LACT1TAB11 PO; +LACT1TAB14 PO; +METF-463 PO; -METF500T20 PO
[2019-05-04 12:56] LABS: GLUCOSE,POINT OF CARE 104 MG/DL (70-110)
[2019-05-04] MEDS ORDERED: KETOROLAC TROMETHAMINE 30 MG/ML VIAL IVP ONE (14:30)
[2019-05-04 16:27] LABS: BASOPHILS % (AUTO) 1.1 % (0.0-2.0); EOSINOPHILS % (AUTO) 0.7 % (1.0-6.0); HEMATOCRIT 39.1 % (36-46); HEMOGLOBIN 13.3 g/dL (12.0-16.0); LYMPHOCYTES # (AUTO) 1.8 K/uL (1.0-4.8); LYMPHOCYTES % (AUTO) 22.5 % (22.0-44.0); MEAN CORPUSCULAR HEMOGLOBIN 29.8 pg (26.0-34.0); MEAN CORPUSCULAR VOLUME 88 fL (80-100); MONOCYTES # (AUTO) 0.7 K/uL (0.1-1.0); MONOCYTES % (AUTO) 8.3 % (2.0-9.0); NEUTROPHILS # (AUTO) 5.4 K/uL (1.8-7.7); NEUTROPHILS % (AUTO) 67.4 % (40.0-70.0); PLATELET COUNT (AUTO) 417 K/uL (150-450); RED BLOOD CELL COUNT(AUTO) 4.45 MIL/uL (4.00-5.20); RED CELL DISTRIBUTION WIDTH 16.2 % (11.5-14.5)
[2019-05-04 16:35] LABS: APPEARANCE,URINE CLEAR (CLEAR); BILIRUBIN,URINE NEGATIVE (NEGATIVE); GLUCOSE, URINE (UA) NEGATIVE (NEGATIVE); KETONES,URINE NEGATIVE (NEGATIVE); LEUKOCYTE ESTERASE ,URINE NEGATIVE (NEGATIVE); NITRATE,URINE NEGATIVE (NEGATIVE); OCCULT BLOOD,URINE NEGATIVE (NEGATIVE); PH,URINE 6.5 (5.0-8.0); PROTEIN,URINE NEGATIVE (NEGATIVE); UROBILINOGEN,URINE 0.2 mg/dL (<=1.0)
[2019-05-04 16:41] LABS: PROTHROMBIN TIME 9.9 SEC (9.4-11.6)
[2019-05-04 17:02] LABS: ALANINE AMINOTRANSFERASE 17 U/L (12-78); ALBUMIN 3.3 g/dL (3.4-5.0); ALKALINE PHOSPHATASE 97 U/L (46-116); ANION GAP 5 mmol/L (8-16); ASPARTATE AMINOTRANSFERASE 25 U/L (15-37); BILIRUBIN,TOTAL 0.3 mg/dL (0.1-1.0); CALCIUM, TOTAL 8.5 mg/dL (8.8-10.5); CARBON DIOXIDE 28 mmol/L (22-29); CHLORIDE 91 mmol/L (98-107); CREATINE KINASE, TOTAL ONLY 156 U/L (26-192); CREATININE 0.74 mg/dL (0.60-1.30); GLOMERULAR FILTR. RATE CALC > 60 mL/min (>60); GLUCOSE,RANDOM 88 mg/dL (70-110); LIPASE 295 U/L (73-393); POTASSIUM 4.7 mmol/L (3.5-5.1); TOTAL PROTEIN, SERUM 6.3 g/dL (6.4-8.2); UREA NITROGEN, BLOOD 9 mg/dL (7-18)
[2019-05-04 17:05] LABS: B-TYPE NATRIURETIC PEPTIDE 45 pg/mL (0-100); SODIUM SERUM 124 mmol/L (136-145)
[2019-05-04] MEDS ORDERED: SODIUM CHLORIDE 0.9% 1,000 ML IV ONE (17:15)
[2019-05-04 17:30] LABS: GLUCOSE,POINT OF CARE 95 MG/DL (70-110)
[2019-05-04] MEDS ORDERED: DOCU-275 PO (17:59)
[2019-05-04] MEDS ORDERED: HYDROCODONE/ACETAMINOPHEN 5-325 MG TABLET PO ONE ×2 (18:00→19:15)
[2019-05-04 20:37] LABS: GLUCOSE,POINT OF CARE 104 MG/DL (70-110)
[2019-05-04] MEDS ORDERED: ACETAMINOPHEN 325 MG TABLET PO PRN (21:30)
[2019-05-04] MEDS ORDERED: 0.9% SODIUM CHLORIDE 10 ML SYRINGE IVP PRN (21:30)
[2019-05-04] MEDS ORDERED: ONDANSETRON HCL 4 MG/2 ML VIAL IVP PRN (21:30)
[2019-05-04 22:22] LABS: ANION GAP 7 mmol/L (8-16); CALCIUM, TOTAL 8.2 mg/dL (8.8-10.5); CARBON DIOXIDE 27 mmol/L (22-29); CHLORIDE 92 mmol/L (98-107); GLOMERULAR FILTR. RATE CALC > 60 mL/min (>60); GLUCOSE,RANDOM 100 mg/dL (70-110); SODIUM SERUM 126 mmol/L (136-145); UREA NITROGEN, BLOOD 10 mg/dL (7-18)
[2019-05-04 23:29] VITALS: BP 171/88
[2019-05-04 23:32] LABS: GLUCOMETER DEV NAME(LOC) 6N.2; GLUCOSE,POINT OF CARE 99 MG/DL (70-110)
[2019-05-05] MEDS ORDERED: METOPROLOL TARTRATE 25 MG TABLET PO SCH (00:15)
[2019-05-05] MEDS ORDERED: MORPHINE SULFATE 2 MG/ML SYRINGE IVP PRN (00:15)
[2019-05-05] MEDS: MetroNIDAZOLE 500 MG/NACL 100 ML IV SCH ×3 (00:25→16:38)
[2019-05-05] MEDS ORDERED: ACETAMINOPHEN 325 MG TABLET PO PRN (01:15)
[2019-05-05] MEDS ORDERED: ZOLPIDEM TARTRATE 5 MG TABLET PO PRN (01:15)
[2019-05-05] MEDS ORDERED: IPRATROPIUM BROMIDE 0.5 MG/2.5 ML NEB SOLUTION NEB PRN (01:15)
[2019-05-05] MEDS ORDERED: MAGNESIUM HYDROXIDE SUSPENSION 30 ML UDCUP PO PRN (01:15)
[2019-05-05] MEDS ORDERED: ALBUTEROL SULFATE 2.5 MG/0.5 ML NEB SOLUTION NEB PRN (01:15)
[2019-05-05] MEDS ORDERED: BISACODYL 10 MG RECTAL RECTAL SUPPOSITORY PR PRN (01:15)
[2019-05-05] MEDS: CIPROFLOXACIN 400 MG/D5% WATER 200 ML IV SCH ×2 (01:40→14:20)
[2019-05-05 02:30] LABS: CALCIUM, TOTAL 8.1 mg/dL (8.8-10.5); CARBON DIOXIDE 29 mmol/L (22-29); CHLORIDE 92 mmol/L (98-107); CREATININE 0.85 mg/dL (0.60-1.30); GLOMERULAR FILTR. RATE CALC > 60 mL/min (>60); GLUCOSE,RANDOM 134 mg/dL (70-110); POTASSIUM 4.2 mmol/L (3.5-5.1); UREA NITROGEN, BLOOD 9 mg/dL (7-18)
[2019-05-05 02:33] LABS: ANION GAP 4 mmol/L (8-16); SODIUM SERUM 125 mmol/L (136-145)
[2019-05-05 05:30] VITALS: BP 141/79
[2019-05-05] MEDS: FAMOTIDINE 20 MG TABLET PO SCH (05:34)
[2019-05-05] MEDS: LEVOTHYROXINE SODIUM 100 MCG TABLET PO SCH (05:36)
[2019-05-05] MEDS: MORPHINE SULFATE 2 MG/ML SYRINGE IVP PRN ×2 (05:37→11:41)
[2019-05-05 06:08] LABS: GLUCOMETER DEV NAME(LOC) 6N.2; GLUCOSE,POINT OF CARE 115 MG/DL (70-110)
[2019-05-05 08:03] VITALS: BP 138/82
[2019-05-05 08:28] LABS: EOSINOPHILS % (AUTO) 0.9 % (1.0-6.0); HEMOGLOBIN 13.2 g/dL (12.0-16.0); LYMPHOCYTES # (AUTO) 1.2 K/uL (1.0-4.8); LYMPHOCYTES % (AUTO) 21.6 % (22.0-44.0); MEAN CORPUSCULAR HEMOGLOBIN 30.2 pg (26.0-34.0); MEAN CORPUSCULAR HGB CONC 33.9 G/dL (31.0-37.0); MEAN CORPUSCULAR VOLUME 89 fL (80-100); MONOCYTES # (AUTO) 0.5 K/uL (0.1-1.0); MONOCYTES % (AUTO) 9.4 % (2.0-9.0); NEUTROPHILS # (AUTO) 3.8 K/uL (1.8-7.7); NEUTROPHILS % (AUTO) 67.1 % (40.0-70.0); PLATELET COUNT (AUTO) 470 K/uL (150-450); RED BLOOD CELL COUNT(AUTO) 4.38 MIL/uL (4.00-5.20); RED CELL DISTRIBUTION WIDTH 16.1 % (11.5-14.5)
[2019-05-05 08:35] LABS: ALANINE AMINOTRANSFERASE 16 U/L (12-78); ALBUMIN 3.3 g/dL (3.4-5.0); ALKALINE PHOSPHATASE 93 U/L (46-116); ANION GAP 1 mmol/L (8-16); ASPARTATE AMINOTRANSFERASE 18 U/L (15-37); BILIRUBIN,TOTAL 0.2 mg/dL (0.1-1.0); CALCIUM, TOTAL 8.4 mg/dL (8.8-10.5); CARBON DIOXIDE 32 mmol/L (22-29); CHLORIDE 94 mmol/L (98-107); CREATININE 0.84 mg/dL (0.60-1.30); GLOMERULAR FILTR. RATE CALC > 60 mL/min (>60); GLUCOSE,RANDOM 128 mg/dL (70-110); POTASSIUM 4.2 mmol/L (3.5-5.1); SODIUM SERUM 127 mmol/L (136-145); TOTAL PROTEIN, SERUM 6.4 g/dL (6.4-8.2); UREA NITROGEN, BLOOD 8 mg/dL (7-18)
[2019-05-05] MEDS ORDERED: LISINOPRIL 5 MG TABLET PO SCH (09:00)
[2019-05-05] MEDS: MetFORMIN HCL 500 MG ER TABLET PO SCH ×2 (09:07→18:06)
[2019-05-05] MEDS: LACTOBAC ACID/BULG/BIFID/THERM TABLET PO SCH (09:08)
[2019-05-05] MEDS: HEPARIN SODIUM,PORCINE 5,000 UNITS/ML VIAL SQ SCH ×2 (09:08→16:42)
[2019-05-05] MEDS: TRIHEXYPHENIDYL HCL 5 MG TABLET PO SCH (09:08)
[2019-05-05] MEDS: METOPROLOL TARTRATE 25 MG TABLET PO SCH ×2 (09:09→22:18)
[2019-05-05] MEDS: DULoxetine HCL 20 MG CAPSULE PO SCH (09:09)
[2019-05-05] MEDS: DOCUSATE SODIUM 100 MG CAPSULE PO SCH ×2 (09:09→20:51)
[2019-05-05] MEDS: QUEtiapine FUMARATE 25 MG TABLET PO SCH ×3 (09:09→20:51)
[2019-05-05] MEDS: LISINOPRIL 5 MG TABLET PO SCH (09:10)
[2019-05-05] MEDS: DICLOFENAC SODIUM 1% 100 GM GEL [4GM] TP SCH ×2 (09:10→21:00)
[2019-05-05] MEDS: HYDROCODONE/ACETAMINOPHEN 5-325 MG TABLET PO PRN ×3 (09:14→20:56)
[2019-05-05 12:03] LABS: GLUCOMETER DEV NAME(LOC) 6N.1; GLUCOSE,POINT OF CARE 112 MG/DL (70-110)
[2019-05-05 16:02] VITALS: BP 136/80
[2019-05-05] MEDS ORDERED: SODIUM CHLORIDE 0.9% 1,000 ML ONE (16:59)
[2019-05-05 19:50] VITALS: BP 112/62
[2019-05-05] MEDS: HALOPERIDOL 10 MG TABLET PO SCH (20:51)
[2019-05-05] MEDS: ATORVASTATIN CALCIUM 20 MG TABLET PO SCH (20:51)
[2019-05-05] MEDS: QUEtiapine FUMARATE 200 MG TABLET PO SCH (22:18)
[2019-05-06] VITALS (7 sets, daily range): BP systolic 95–160; BP diastolic 43–91
[2019-05-06] MEDS: HEPARIN SODIUM,PORCINE 5,000 UNITS/ML VIAL SQ SCH ×4 (00:39→21:41)
[2019-05-06] MEDS: MetroNIDAZOLE 500 MG/NACL 100 ML IV SCH ×4 (00:39→23:18)
[2019-05-06] MEDS: CIPROFLOXACIN 400 MG/D5% WATER 200 ML IV SCH ×2 (02:23→14:38)
[2019-05-06] MEDS: HYDROCODONE/ACETAMINOPHEN 5-325 MG TABLET PO PRN ×2 (02:26→21:42)
[2019-05-06 04:02] LABS: GLUCOMETER DEV NAME(LOC) 6N.1; GLUCOSE,POINT OF CARE 101 MG/DL (70-110)
[2019-05-06] MEDS: FAMOTIDINE 20 MG TABLET PO SCH (06:22)
[2019-05-06] MEDS: LEVOTHYROXINE SODIUM 100 MCG TABLET PO SCH (06:22)
[2019-05-06 07:01] LABS: BASOPHILS % (AUTO) 1.3 % (0.0-2.0); EOSINOPHILS % (AUTO) 1.6 % (1.0-6.0); HEMATOCRIT 35.9 % (36-46); HEMOGLOBIN 12.4 g/dL (12.0-16.0); LYMPHOCYTES # (AUTO) 1.4 K/uL (1.0-4.8); LYMPHOCYTES % (AUTO) 27.8 % (22.0-44.0); MEAN CORPUSCULAR HGB CONC 34.5 G/dL (31.0-37.0); MEAN CORPUSCULAR VOLUME 90 fL (80-100); MONOCYTES # (AUTO) 0.6 K/uL (0.1-1.0); MONOCYTES % (AUTO) 11.2 % (2.0-9.0); NEUTROPHILS # (AUTO) 2.9 K/uL (1.8-7.7); NEUTROPHILS % (AUTO) 58.1 % (40.0-70.0); PLATELET COUNT (AUTO) 407 K/uL (150-450); RED BLOOD CELL COUNT(AUTO) 4.01 MIL/uL (4.00-5.20); RED CELL DISTRIBUTION WIDTH 16.5 % (11.5-14.5)
[2019-05-06 07:40] LABS: ALANINE AMINOTRANSFERASE 13 U/L (12-78); ALBUMIN 2.7 g/dL (3.4-5.0); ALKALINE PHOSPHATASE 77 U/L (46-116); ANION GAP 6 mmol/L (8-16); ASPARTATE AMINOTRANSFERASE 15 U/L (15-37); BILIRUBIN,TOTAL 0.1 mg/dL (0.1-1.0); CALCIUM, TOTAL 8.9 mg/dL (8.8-10.5); CARBON DIOXIDE 27 mmol/L (22-29); CHLORIDE 97 mmol/L (98-107); CREATININE 0.85 mg/dL (0.60-1.30); FREE T4 (FREE THYROXINE) 0.48 ng/dL (0.76-1.46); GLOMERULAR FILTR. RATE CALC > 60 mL/min (>60); GLUCOSE,RANDOM 108 mg/dL (70-110); POTASSIUM 4.5 mmol/L (3.5-5.1); SODIUM SERUM 130 mmol/L (136-145); THYROID STIMULATING HORMONE 72.78 uIU/mL (0.36-3.74); TOTAL PROTEIN, SERUM 5.6 g/dL (6.4-8.2); UREA NITROGEN, BLOOD 12 mg/dL (7-18)
[2019-05-06] MEDS: TRIHEXYPHENIDYL HCL 5 MG TABLET PO SCH (08:41)
[2019-05-06] MEDS: DOCUSATE SODIUM 100 MG CAPSULE PO SCH ×2 (08:42→21:42)
[2019-05-06] MEDS: MetFORMIN HCL 500 MG ER TABLET PO SCH ×2 (08:42→16:44)
[2019-05-06] MEDS: LACTOBAC ACID/BULG/BIFID/THERM TABLET PO SCH (08:42)
[2019-05-06] MEDS: METOPROLOL TARTRATE 25 MG TABLET PO SCH ×2 (08:42→21:43)
[2019-05-06] MEDS: DULoxetine HCL 20 MG CAPSULE PO SCH (08:42)
[2019-05-06] MEDS: QUEtiapine FUMARATE 25 MG TABLET PO SCH ×3 (08:42→21:43)
[2019-05-06] MEDS: LISINOPRIL 5 MG TABLET PO SCH (08:42)
[2019-05-06] MEDS: MORPHINE SULFATE 2 MG/ML SYRINGE IVP PRN ×2 (08:43→14:44)
[2019-05-06] MEDS: DICLOFENAC SODIUM 1% 100 GM GEL [4GM] TP SCH ×2 (08:43→21:44)
[2019-05-06] MEDS: LEVOTHYROXINE SODIUM 50 MCG TABLET PO SCH (12:03)
[2019-05-06 12:24] LABS: GLUCOMETER DEV NAME(LOC) 6N.1; GLUCOSE,POINT OF CARE 111 MG/DL (70-110)
[2019-05-06] MEDS: GABAPENTIN 100 MG CAPSULE PO SCH ×3 (14:36→21:44)
[2019-05-06] MEDS ORDERED: SODIUM CHLORIDE 0.9% 1,000 ML ONE (18:55)
[2019-05-06 21:23] LABS: GLUCOMETER DEV NAME(LOC) 6N.1; GLUCOSE,POINT OF CARE 99 MG/DL (70-110)
[2019-05-06] MEDS: HALOPERIDOL 10 MG TABLET PO SCH (21:42)
[2019-05-06] MEDS: QUEtiapine FUMARATE 200 MG TABLET PO SCH (21:43)
[2019-05-06] MEDS: ATORVASTATIN CALCIUM 20 MG TABLET PO SCH (21:43)
[2019-05-06 23:11] LABS: GLUCOMETER DEV NAME(LOC) 6N.1; GLUCOSE,POINT OF CARE 89 MG/DL (70-110)
[2019-05-07] MEDS: CIPROFLOXACIN 400 MG/D5% WATER 200 ML IV SCH ×2 (01:28→14:00)
[2019-05-07 03:25] VITALS: BP 146/66
[2019-05-07] MEDS: LEVOTHYROXINE SODIUM 100 MCG TABLET PO SCH (05:44)
[2019-05-07] MEDS: HYDROCODONE/ACETAMINOPHEN 5-325 MG TABLET PO PRN (05:44)
[2019-05-07] MEDS: FAMOTIDINE 20 MG TABLET PO SCH (05:45)
[2019-05-07 06:11] LABS: GLUCOMETER DEV NAME(LOC) 6N.1; GLUCOSE,POINT OF CARE 74 MG/DL (70-110)
[2019-05-07 06:30] LABS: BASOPHILS % (AUTO) 1.3 % (0.0-2.0); EOSINOPHILS % (AUTO) 2.4 % (1.0-6.0); HEMOGLOBIN 13.1 g/dL (12.0-16.0); LYMPHOCYTES # (AUTO) 1.5 K/uL (1.0-4.8); LYMPHOCYTES % (AUTO) 23.9 % (22.0-44.0); MEAN CORPUSCULAR HEMOGLOBIN 30.4 pg (26.0-34.0); MEAN CORPUSCULAR HGB CONC 33.7 G/dL (31.0-37.0); MEAN CORPUSCULAR VOLUME 90 fL (80-100); MONOCYTES # (AUTO) 0.4 K/uL (0.1-1.0); MONOCYTES % (AUTO) 6.5 % (2.0-9.0); NEUTROPHILS # (AUTO) 4.1 K/uL (1.8-7.7); NEUTROPHILS % (AUTO) 65.9 % (40.0-70.0); PLATELET COUNT (AUTO) 450 K/uL (150-450); RED BLOOD CELL COUNT(AUTO) 4.33 MIL/uL (4.00-5.20); RED CELL DISTRIBUTION WIDTH 16.5 % (11.5-14.5)
[2019-05-07 06:50] LABS: ALANINE AMINOTRANSFERASE 15 U/L (12-78); ALKALINE PHOSPHATASE 85 U/L (46-116); ANION GAP 4 mmol/L (8-16); ASPARTATE AMINOTRANSFERASE 16 U/L (15-37); BILIRUBIN,TOTAL 0.2 mg/dL (0.1-1.0); CALCIUM, TOTAL 8.9 mg/dL (8.8-10.5); CARBON DIOXIDE 29 mmol/L (22-29); CHLORIDE 98 mmol/L (98-107); CREATININE 0.85 mg/dL (0.60-1.30); GLOMERULAR FILTR. RATE CALC > 60 mL/min (>60); GLUCOSE,RANDOM 102 mg/dL (70-110); POTASSIUM 5.1 mmol/L (3.5-5.1); SODIUM SERUM 131 mmol/L (136-145); UREA NITROGEN, BLOOD 18 mg/dL (7-18)
[2019-05-07 07:46] VITALS: BP 111/65
[2019-05-07] MEDS: LACTOBAC ACID/BULG/BIFID/THERM TABLET PO SCH (07:59)
[2019-05-07] MEDS: MetroNIDAZOLE 500 MG/NACL 100 ML IV SCH (07:59)
[2019-05-07] MEDS: MetFORMIN HCL 500 MG ER TABLET PO SCH (07:59)
[2019-05-07] MEDS: DOCUSATE SODIUM 100 MG CAPSULE PO SCH (08:00)
[2019-05-07] MEDS: TRIHEXYPHENIDYL HCL 5 MG TABLET PO SCH (08:00)
[2019-05-07] MEDS: HEPARIN SODIUM,PORCINE 5,000 UNITS/ML VIAL SQ SCH (08:00)
[2019-05-07] MEDS: DULoxetine HCL 20 MG CAPSULE PO SCH (08:00)
[2019-05-07] MEDS: DICLOFENAC SODIUM 1% 100 GM GEL [4GM] TP SCH (08:01)
[2019-05-07] MEDS: QUEtiapine FUMARATE 25 MG TABLET PO SCH (08:01)
[2019-05-07] MEDS: LISINOPRIL 5 MG TABLET PO SCH (08:01)
[2019-05-07] MEDS: LEVOTHYROXINE SODIUM 50 MCG TABLET PO SCH (08:01)
[2019-05-07] MEDS: GABAPENTIN 100 MG CAPSULE PO SCH (08:01)
[2019-05-07] MEDS: METOPROLOL TARTRATE 25 MG TABLET PO SCH (08:01)
[2019-05-07 11:01] VITALS: BP 105/68
== END 2019-05-07 16:05 | DRG 392 ==
LOC: EMS 12:21 → 6N 18:38 → 4E 05-05 07:21
PROVIDERS: ADMIT Hospitalist; ATTEND Hospitalist
DX: K52.9 Noninfective gastroenteritis and colitis, unspecified (principal); E87.1 Hypo-osmolality and hyponatremia; Z68.41 Body mass index [BMI] 40.0-44.9, adult; E03.9 Hypothyroidism, unspecified; E78.5 Hyperlipidemia, unspecified; I10 Essential (primary) hypertension; E11.9 Type 2 diabetes mellitus without complications; J44.9 Chronic obstructive pulmonary disease, unspecified; F41.9 Anxiety disorder, unspecified; M19.90 Unspecified osteoarthritis, unspecified site; F31.9 Bipolar disorder, unspecified; K21.9 Gastro-esophageal reflux disease without esophagitis; E78.00 Pure hypercholesterolemia, unspecified; F17.210 Nicotine dependence, cigarettes, uncomplicated; K59.00 Constipation, unspecified; Z83.3 Family history of diabetes mellitus; Z82.49 Family history of ischemic heart disease and other diseases of the circulatory system; Z72.89 Other problems related to lifestyle; Z88.8 Allergy status to other drugs, medicaments and biological substances; Z85.3 Personal history of malignant neoplasm of breast; Z93.3 Colostomy status; E66.01 Morbid (severe) obesity due to excess calories
CPT/HCPCS: 72148; 74176; 83036; 84145; 84439; 84443; 87081; 93005; 93925; 93971; 96361; 96374; 97116; 97162; 97530; G0378; J0744; J1644; J1885; J2270; J3490; J7030

== ENCOUNTER 2019-06-13 15:44 | Emergency (ER) | payer MEDICARE, OTHER ==
[~2019-06-13] VITALS: Ht 162.6 cm; Wt 90.9 kg
[~2019-06-13 15:44] MED LIST changes: +DOCU-275 PO; -DSS100 PO; -NICO1PAT49 TD; -PRED10 PO; -PRED20 PO
[2019-06-13] MEDS ORDERED: GABA-529 PO (15:57)
[2019-06-13] MEDS ORDERED: OMEP20 PO (15:57)
[2019-06-13] MEDS ORDERED: TRAZ-257 PO (15:57)
[2019-06-13 16:32] LABS: BASOPHILS % (AUTO) 1.3 % (0.0-2.0); EOSINOPHILS % (AUTO) 1.6 % (1.0-6.0); HEMATOCRIT 36.5 % (36-46); LYMPHOCYTES # (AUTO) 1.9 K/uL (1.0-4.8); LYMPHOCYTES % (AUTO) 23.6 % (22.0-44.0); MEAN CORPUSCULAR HEMOGLOBIN 28.8 pg (26.0-34.0); MEAN CORPUSCULAR HGB CONC 32.9 G/dL (31.0-37.0); MEAN CORPUSCULAR VOLUME 88 fL (80-100); MONOCYTES # (AUTO) 0.9 K/uL (0.1-1.0); MONOCYTES % (AUTO) 11.1 % (2.0-9.0); NEUTROPHILS % (AUTO) 62.4 % (40.0-70.0); PLATELET COUNT (AUTO) 356 K/uL (150-450); RED BLOOD CELL COUNT(AUTO) 4.17 MIL/uL (4.00-5.20); RED CELL DISTRIBUTION WIDTH 15.1 % (11.5-14.5)
[2019-06-13 16:42] LABS: ANION GAP 6 mmol/L (8-16); CALCIUM, TOTAL 8.9 mg/dL (8.8-10.5); CARBON DIOXIDE 29 mmol/L (22-29); CHLORIDE 96 mmol/L (98-107); CREATININE 0.84 mg/dL (0.60-1.30); GLOMERULAR FILTR. RATE CALC > 60 mL/min (>60); GLUCOSE,RANDOM 96 mg/dL (70-110); POTASSIUM 4.4 mmol/L (3.5-5.1); SODIUM SERUM 131 mmol/L (136-145); UREA NITROGEN, BLOOD 12 mg/dL (7-18)
[2019-06-13] MEDS ORDERED: IPRATROPIUM BROMIDE 0.5 MG/2.5 ML NEB SOLUTION NEB ONE (16:45)
[2019-06-13] MEDS ORDERED: ALBUTEROL SULFATE 5 MG/ML 20 ML NEB SOLN [BULK] NEB ONE (16:45)
[2019-06-13] MEDS ORDERED: PredniSONE 20 MG TABLET PO ONE (16:45)
[2019-06-13 16:48] LABS: ALANINE AMINOTRANSFERASE 23 U/L (12-78); ALKALINE PHOSPHATASE 114 U/L (46-116); ASPARTATE AMINOTRANSFERASE 19 U/L (15-37); BILIRUBIN,TOTAL 0.1 mg/dL (0.1-1.0); CREATINE KINASE, TOTAL ONLY 50 U/L (26-192); TOTAL PROTEIN, SERUM 6.6 g/dL (6.4-8.2)
[2019-06-13 16:54] LABS: GLUCOMETER DEV NAME(LOC) AHU.; GLUCOSE,POINT OF CARE 114 MG/DL (70-110)
[2019-06-13 17:00] LABS: B-TYPE NATRIURETIC PEPTIDE 127 pg/mL (0-100)
[2019-06-13 17:02] LABS: INR 0.9 (0.9-1.1); PROTHROMBIN TIME 9.6 SEC (9.4-11.6)
[2019-06-13] MEDS ORDERED: 0.9% SODIUM CHLORIDE 15 ML NEB SOLUTION NEB ONE (17:15)
[2019-06-13 20:48] VITALS: BP 125/63
== END 2019-06-13 22:08 | disposition home or self-care (01) ==
LOC: EMS 15:49
DX: J44.9 Chronic obstructive pulmonary disease, unspecified (principal); E03.9 Hypothyroidism, unspecified; E11.9 Type 2 diabetes mellitus without complications; E78.00 Pure hypercholesterolemia, unspecified; I10 Essential (primary) hypertension; K21.9 Gastro-esophageal reflux disease without esophagitis; M19.90 Unspecified osteoarthritis, unspecified site; F31.9 Bipolar disorder, unspecified; F41.9 Anxiety disorder, unspecified; F17.210 Nicotine dependence, cigarettes, uncomplicated; Z91.030 Bee allergy status; Z79.899 Other long term (current) drug therapy; Z98.890 Other specified postprocedural states
CPT/HCPCS: 36415; 71045; 80053; 82550; 82962; 83880; 84484; 85025; 85610; 85730; 93005; 94644; 99285; 99406; J7512

== ENCOUNTER 2019-08-23 09:20 | Emergency (ER) | payer MEDICARE, OTHER ==
[~2019-08-23] VITALS: Ht 149.9 cm; Wt 93.6 kg
[~2019-08-23 09:20] MED LIST changes: +GABA-1216 PO; -METF-463 PO; +METF-911 PO; +OMEP20 PO; +TRAZ-257 PO
[2019-08-23] MEDS ORDERED: KETOROLAC TROMETHAMINE 30 MG/ML VIAL IM ONE (10:30)
[2019-08-23] MEDS ORDERED: LIDOCAINE 5% TRANSDERMAL PATCH TD ONE (10:30)
[2019-08-23] MEDS ORDERED: METHOCARBAMOL 500 MG TABLET PO ONE (10:30)
[2019-08-23 11:35] VITALS: BP 134/66
== END 2019-08-23 12:27 | disposition home or self-care (01) ==
LOC: EMS 09:22
DX: M54.41 Lumbago with sciatica, right side (principal); F41.9 Anxiety disorder, unspecified; J45.909 Unspecified asthma, uncomplicated; F31.9 Bipolar disorder, unspecified; E11.9 Type 2 diabetes mellitus without complications; K21.9 Gastro-esophageal reflux disease without esophagitis; E78.00 Pure hypercholesterolemia, unspecified; F17.210 Nicotine dependence, cigarettes, uncomplicated; F12.90 Cannabis use, unspecified, uncomplicated; Z91.030 Bee allergy status; Z79.899 Other long term (current) drug therapy; Z79.84 Long term (current) use of oral hypoglycemic drugs
CPT/HCPCS: 82962; 96372; 99283; 99406; J1885

== ENCOUNTER 2019-08-29 13:26 | Emergency (ER) | payer MEDICARE, OTHER ==
[~2019-08-29] VITALS: Ht 149.9 cm; Wt 90.9 kg
[2019-08-29] MEDS: KETOROLAC TROMETHAMINE 30 MG/ML VIAL IM ONE (14:25)
[2019-08-29 16:55] VITALS: BP 151/54
== END 2019-08-29 17:34 | disposition home or self-care (01) ==
LOC: EMS 13:29
DX: M54.5 Low back pain (principal); M25.551 Pain in right hip; F17.210 Nicotine dependence, cigarettes, uncomplicated; F12.90 Cannabis use, unspecified, uncomplicated; F41.9 Anxiety disorder, unspecified; F31.9 Bipolar disorder, unspecified; J45.909 Unspecified asthma, uncomplicated; E11.9 Type 2 diabetes mellitus without complications; K21.9 Gastro-esophageal reflux disease without esophagitis; E78.00 Pure hypercholesterolemia, unspecified; Z91.030 Bee allergy status; Z79.84 Long term (current) use of oral hypoglycemic drugs; Z79.899 Other long term (current) drug therapy
CPT/HCPCS: 72100; 73502; 96372; 99284; J1885

== ENCOUNTER 2019-10-06 19:56 | Emergency (ER) | payer MEDICARE, OTHER ==
[~2019-10-06] VITALS: Ht 149.9 cm; Wt 75.0 kg
[~2019-10-06 19:56] MED LIST changes: -ATOR20TA86 PO; -DICL4100G TP; -DOCU-275 PO; -DULO20CA30 PO; -FAMO20 PO; -GABA-1216 PO; -HALO10 PO; -LACT1TAB14 PO; -LEVO200 PO; -LISI-660 PO; -MELA5TAB3 PO; +METF-514 PO; -METF-911 PO; -METO25 PO; +NAPR-1193 PO; -OMEP20 PO; +PREG200C28 PO; -QUET200T PO; -QUET25TA PO; -TRAZ-257 PO; -TRIH5TAB2 PO
[2019-10-06 22:27] LABS: GLUCOSE,POINT OF CARE 102 MG/DL (70-110)
[2019-10-06] MEDS ORDERED: HYDROCODONE/ACETAMINOPHEN 5-325 MG TABLET PO ONE (23:45)
[2019-10-06] MEDS ORDERED: KETOROLAC TROMETHAMINE 60 MG/2 ML VIAL IM ONE (23:45)
[2019-10-07 00:55] VITALS: BP 133/68
[2019-10-08] MEDS ORDERED: LEVO200 PO (17:12)
[2019-10-08] MEDS ORDERED: HALO10 PO (17:12)
[2019-10-08] MEDS ORDERED: DULO40CA2 PO (17:12)
[2019-10-08] MEDS ORDERED: ATOR20TA86 PO (17:12)
[2019-10-08] MEDS ORDERED: BENZ1TAB10 PO (17:12)
[2019-10-08] MEDS ORDERED: PREG25 PO (17:12)
[2019-10-08] MEDS ORDERED: QUET25TA PO (17:12)
[2019-10-08] MEDS ORDERED: QUET200T PO (17:12)
[2019-10-08] MEDS ORDERED: LISI-660 PO (17:12)
[2019-10-08] MEDS ORDERED: METO25 PO (17:12)
[2019-10-08] MEDS ORDERED: MIRT30 PO (17:12)
[2019-10-08] MEDS ORDERED: TRAZ-257 PO (17:12)
[2019-10-08] MEDS ORDERED: PRAZ1 PO (17:12)
[2019-10-08] MEDS ORDERED: CYCL10 PO (17:12)
== END 2019-10-07 01:56 | disposition home or self-care (01) ==
LOC: EMS 20:00
DX: M16.12 Unilateral primary osteoarthritis, left hip (principal); F17.210 Nicotine dependence, cigarettes, uncomplicated; F12.90 Cannabis use, unspecified, uncomplicated; F32.9 Major depressive disorder, single episode, unspecified; E11.9 Type 2 diabetes mellitus without complications; J45.909 Unspecified asthma, uncomplicated; E78.00 Pure hypercholesterolemia, unspecified; I10 Essential (primary) hypertension; E03.9 Hypothyroidism, unspecified; Z79.84 Long term (current) use of oral hypoglycemic drugs; Z79.899 Other long term (current) drug therapy; Z91.030 Bee allergy status
CPT/HCPCS: 82962; 96372; 99283; 99406; J1885

== ENCOUNTER 2019-10-07 14:42 | Emergency (ER) | payer MEDICARE, OTHER ==
[~2019-10-07] VITALS: Ht 160 cm; Wt 100.0 kg
[2019-10-07 16:17] VITALS: BP 165/105
[2019-10-07 16:17] LABS: GLUCOSE,POINT OF CARE 99 MG/DL (70-110)
[2019-10-07] MEDS ORDERED: KETOROLAC TROMETHAMINE 30 MG/ML VIAL IM ONE (16:30)
[2019-10-08] MEDS ORDERED: HALO10 PO (17:12)
[2019-10-08] MEDS ORDERED: LEVO200 PO (17:12)
[2019-10-08] MEDS ORDERED: BENZ1TAB10 PO (17:12)
[2019-10-08] MEDS ORDERED: QUET200T PO (17:12)
[2019-10-08] MEDS ORDERED: ATOR20TA86 PO (17:12)
[2019-10-08] MEDS ORDERED: PREG25 PO (17:12)
[2019-10-08] MEDS ORDERED: TRAZ-257 PO (17:12)
[2019-10-08] MEDS ORDERED: DULO40CA2 PO (17:12)
[2019-10-08] MEDS ORDERED: METO25 PO (17:12)
[2019-10-08] MEDS ORDERED: PRAZ1 PO (17:12)
[2019-10-08] MEDS ORDERED: QUET25TA PO (17:12)
[2019-10-08] MEDS ORDERED: CYCL10 PO (17:12)
[2019-10-08] MEDS ORDERED: MIRT30 PO (17:12)
[2019-10-08] MEDS ORDERED: LISI-660 PO (17:12)
== END 2019-10-07 16:52 | disposition home or self-care (01) ==
LOC: EMS 14:43
DX: F31.9 Bipolar disorder, unspecified (principal); M25.551 Pain in right hip; G89.29 Other chronic pain; F41.9 Anxiety disorder, unspecified; J45.909 Unspecified asthma, uncomplicated; E11.9 Type 2 diabetes mellitus without complications; K21.9 Gastro-esophageal reflux disease without esophagitis; E78.00 Pure hypercholesterolemia, unspecified; F25.9 Schizoaffective disorder, unspecified; F17.210 Nicotine dependence, cigarettes, uncomplicated; F12.90 Cannabis use, unspecified, uncomplicated; Z91.030 Bee allergy status; Z79.84 Long term (current) use of oral hypoglycemic drugs
CPT/HCPCS: 82962; 96372; 99284; J1885

== ENCOUNTER 2019-10-08 04:30 | Emergency (ER) | payer MEDICARE, OTHER ==
[2019-10-08] MEDS ORDERED: PRAZ1 PO (17:12)
[2019-10-08] MEDS ORDERED: ATOR20TA86 PO (17:12)
[2019-10-08] MEDS ORDERED: PREG25 PO (17:12)
[2019-10-08] MEDS ORDERED: TRAZ-257 PO (17:12)
[2019-10-08] MEDS ORDERED: MIRT30 PO (17:12)
[2019-10-08] MEDS ORDERED: QUET200T PO (17:12)
[2019-10-08] MEDS ORDERED: HALO10 PO (17:12)
[2019-10-08] MEDS ORDERED: CYCL10 PO (17:12)
[2019-10-08] MEDS ORDERED: METO25 PO (17:12)
[2019-10-08] MEDS ORDERED: LEVO200 PO (17:12)
[2019-10-08] MEDS ORDERED: BENZ1TAB10 PO (17:12)
[2019-10-08] MEDS ORDERED: QUET25TA PO (17:12)
[2019-10-08] MEDS ORDERED: LISI-660 PO (17:12)
[2019-10-08] MEDS ORDERED: DULO40CA2 PO (17:12)
== END 2019-10-08 06:05 | disposition left against medical advice (07) ==
LOC: EMS 04:30
DX: R10.9 Unspecified abdominal pain (principal); Z53.21 Procedure and treatment not carried out due to patient leaving prior to being seen by health care provider

== ENCOUNTER 2019-10-08 08:21 | Inpatient (IN) | payer MEDICARE, OTHER ==
[~2019-10-08] VITALS: Ht 157.5 cm; Wt 95.2 kg
[2019-10-08] MEDS ORDERED: BACITRACIN 0.9 GM PACKET OINTMENT TP ONE (10:45)
[2019-10-08 10:55] LABS: BASOPHILS % (AUTO) 0.6 % (0.0-2.0); EOSINOPHILS % (AUTO) 0 % (1.0-6.0); HEMATOCRIT 41.6 % (36-46); HEMOGLOBIN 13.9 g/dL (12.0-16.0); MEAN CORPUSCULAR HEMOGLOBIN 28.9 pg (26.0-34.0); MEAN CORPUSCULAR HGB CONC 33.5 G/dL (31.0-37.0); MEAN CORPUSCULAR VOLUME 86 fL (80-100); MONOCYTES # (AUTO) 0.4 K/uL (0.1-1.0); MONOCYTES % (AUTO) 2.7 % (2.0-9.0); NEUTROPHILS # (AUTO) 12.6 K/uL (1.8-7.7); PLATELET COUNT (AUTO) 509 K/uL (150-450); RED BLOOD CELL COUNT(AUTO) 4.83 MIL/uL (4.00-5.20); RED CELL DISTRIBUTION WIDTH 19.7 % (11.5-14.5)
[2019-10-08 10:58] LABS: NEUTROPHILS % (AUTO) 89.7 % (40.0-70.0)
[2019-10-08 11:08] LABS: ANION GAP 7 mmol/L (8-16); CALCIUM, TOTAL 9.9 mg/dL (8.8-10.5); CARBON DIOXIDE 30 mmol/L (22-29); CHLORIDE 91 mmol/L (98-107); CREATININE 1.14 mg/dL (0.60-1.30); GLOMERULAR FILTR. RATE CALC 48 mL/min (>60); GLUCOSE,RANDOM 130 mg/dL (70-110); POTASSIUM 4.1 mmol/L (3.5-5.1); SODIUM SERUM 128 mmol/L (136-145); UREA NITROGEN, BLOOD 19 mg/dL (7-18)
[2019-10-08 11:16] LABS: ALANINE AMINOTRANSFERASE 23 U/L (12-78); ALBUMIN 4.2 g/dL (3.4-5.0); ALKALINE PHOSPHATASE 158 U/L (46-116); ASPARTATE AMINOTRANSFERASE 23 U/L (15-37); BILIRUBIN,TOTAL 0.6 mg/dL (0.1-1.0); TOTAL PROTEIN, SERUM 8.3 g/dL (6.4-8.2)
[2019-10-08] MEDS ORDERED: SODIUM CHLORIDE 0.9% 1,000 ML IV ONE (12:15)
[2019-10-08] MEDS ORDERED: DiphenhydrAMINE HCL 50 MG/ML VIAL IM ONE ×2 (12:15→13:30)
[2019-10-08] MEDS ORDERED: LORazepam 2 MG/ML VIAL IM ONE (12:15)
[2019-10-08] MEDS ORDERED: HALOPERIDOL LACTATE 5 MG/ML VIAL IM ONE (12:15)
[2019-10-08] MEDS ORDERED: PERTUSS(ACELL),DIPH,TET VAC/PF 0.5 ML VIAL IM ONE (12:45)
[2019-10-08] MEDS ORDERED: ChlorproMAZINE HCL 25 MG/ML 2 ML AMP IM ONE (13:30)
[2019-10-08] MEDS ORDERED: MIRT30 PO (17:12)
[2019-10-08] MEDS ORDERED: CYCL10 PO (17:12)
[2019-10-08] MEDS ORDERED: BENZ1TAB10 PO (17:12)
[2019-10-08] MEDS ORDERED: METO25 PO (17:12)
[2019-10-08] MEDS ORDERED: LISI-660 PO (17:12)
[2019-10-08] MEDS ORDERED: ATOR20TA86 PO (17:12)
[2019-10-08] MEDS ORDERED: QUET200T PO (17:12)
[2019-10-08] MEDS ORDERED: LEVO200 PO (17:12)
[2019-10-08] MEDS ORDERED: DULO40CA2 PO (17:12)
[2019-10-08] MEDS ORDERED: HALO10 PO (17:12)
[2019-10-08] MEDS ORDERED: QUET25TA PO (17:12)
[2019-10-08] MEDS ORDERED: PRAZ1 PO (17:12)
[2019-10-08] MEDS ORDERED: TRAZ-257 PO (17:12)
[2019-10-08] MEDS ORDERED: PREG25 PO (17:12)
[2019-10-08 18:47] VITALS: BP 147/74
[2019-10-08 19:30] VITALS: BP 150/82
[2019-10-09] VITALS (7 sets, daily range): BP systolic 127–198; BP diastolic 69–97
[2019-10-09] MEDS ORDERED: ACETAMINOPHEN 650 MG RECTAL SUPPOSITORY PR ONE (00:15)
[2019-10-09 01:24] LABS: ABG BASE EXCESS -2.1 mmol/L (-2.0-3.0); ABG CARBOXYHEMOGLOBIN 2.2 % (0.0-1.5); ABG HCO3 22.9 mmol/L (22.0-26.0); ABG METHEMOGLOBIN 0.3 % (0.0-1.5); ABG OXYGEN CONTENT 17.9 mL/dL (15.0-23.0); ABG OXYGEN SATURATION 94.5 % (95.0-98.0); ABG OXYHEMOGLOBIN 92.1 % (94.0-100.0); ABG PCO2 39 mmHg (35-45); ABG PH 7.388 (7.35-7.450); ABG TOTAL HEMOGLOBIN 13.8 G/dL (12.0-18.0); O2 DEVICE,BLOOD GAS CANNULA (ROOM AIR); PO2, ARTERIAL BG 75.8 mmHg (79.0-87.0); SITE, BLOOD GAS RT RADIAL; SOURCE, BLOOD GAS ARTERIAL; TEMPERATURE, FAHRENHEIT, BG 98.6 FAHREN (96.0-98.6)
[2019-10-09] MEDS ORDERED: HydrALAZINE HCL 20 MG/ML VIAL IVP PRN (01:30)
[2019-10-09] MEDS ORDERED: KETOROLAC TROMETHAMINE 15 MG/ML VIAL IVP ONE (04:00)
[2019-10-09 05:22] LABS: APPEARANCE,URINE CLOUDY (CLEAR); BILIRUBIN,URINE NEGATIVE (NEGATIVE); GLUCOSE, URINE (UA) NEGATIVE (NEGATIVE); KETONES,URINE NEGATIVE (NEGATIVE); LEUKOCYTE ESTERASE ,URINE LARGE (NEGATIVE); NITRATE,URINE NEGATIVE (NEGATIVE); OCCULT BLOOD,URINE MODERATE (NEGATIVE); PH,URINE 6.5 (5.0-8.0); PROTEIN,URINE TRACE (NEGATIVE); UROBILINOGEN,URINE 0.2 mg/dL (<=1.0)
[2019-10-09 05:26] LABS: AMPHET/METH SCREEN,URINE NEGATIVE (NEGATIVE); BARBITURATE SCREEN, URINE NEGATIVE (NEGATIVE); BENZODIAZEPINES SCREEN,URINE NEGATIVE (NEGATIVE); CANNABINOID SCREEN,URINE NEGATIVE (NEGATIVE); COCAINE SCREEN,URINE NEGATIVE (NEGATIVE); METHADONE SCREEN, URINE NEGATIVE (NEGATIVE); OPIATE SCREEN,URINE NEGATIVE (NEGATIVE)
[2019-10-09 05:30] LABS: PHENCYCLIDINE SCREEN,URINE NEGATIVE (NEGATIVE)
[2019-10-09 05:52] LABS: BACTERIA,URINE Many /HPF (None Seen); SQUAMOUS EPITHELIAL CELL,UR Moderate /LPF (None Seen)
[2019-10-09] MEDS ORDERED: SODIUM CHLORIDE 0.9% 1,000 ML IV ONE (08:45)
[2019-10-09] MEDS: CefTRIAXone 1 GM/DEXTROSE 50 ML IV SCH (09:28)
[2019-10-09] MEDS: ASPIRIN 81 MG CHEWABLE TABLET PO SCH (09:38)
[2019-10-09] MEDS: FAMOTIDINE 20 MG TABLET PO SCH (09:38)
[2019-10-09] MEDS: MULTIVITAMINS WITH MINERALS, THERAPEUTIC TABLET PO SCH (09:40)
[2019-10-09] MEDS: DOCUSATE SODIUM 100 MG CAPSULE PO SCH ×2 (09:42→20:58)
[2019-10-09 09:47] LABS: ALBUMIN 3.5 g/dL (3.4-5.0); BILIRUBIN,TOTAL 0.5 mg/dL (0.1-1.0); CALCIUM, TOTAL 9.6 mg/dL (8.8-10.5); CREATININE 1.04 mg/dL (0.60-1.30); POTASSIUM 4.1 mmol/L (3.5-5.1); TOTAL PROTEIN, SERUM 7.3 g/dL (6.4-8.2)
[2019-10-09 09:58] LABS: GLUCOMETER DEV NAME(LOC) 5N.1; GLUCOSE,POINT OF CARE 151 MG/DL (70-110)
[2019-10-09 09:58] LABS: GLUCOMETER DEV NAME(LOC) 5N.1; GLUCOSE,POINT OF CARE 111 MG/DL (70-110)
[2019-10-09 10:00] LABS: BASOPHILS % (AUTO) 1.1 % (0.0-2.0); EOSINOPHILS % (AUTO) 0.2 % (1.0-6.0); HEMATOCRIT 43.2 % (36-46); LYMPHOCYTES # (AUTO) 2.1 K/uL (1.0-4.8); MEAN CORPUSCULAR HGB CONC 32.4 G/dL (31.0-37.0); MEAN CORPUSCULAR VOLUME 86 fL (80-100); MONOCYTES # (AUTO) 1.1 K/uL (0.1-1.0); NEUTROPHILS # (AUTO) 9.8 K/uL (1.8-7.7); NEUTROPHILS % (AUTO) 74.7 % (40.0-70.0); RED BLOOD CELL COUNT(AUTO) 5.01 MIL/uL (4.00-5.20); RED CELL DISTRIBUTION WIDTH 19.7 % (11.5-14.5)
[2019-10-09 10:20] LABS: PLATELET COUNT (AUTO) 367 K/uL (150-450)
[2019-10-09] MEDS: ACETAMINOPHEN 325 MG TABLET PO PRN ×2 (13:07→20:59)
[2019-10-09] MEDS: HEPARIN SODIUM,PORCINE 5,000 UNITS/ML VIAL SQ SCH (15:52)
[2019-10-09] MEDS ORDERED: DEXTRAN 70 0.1%/HYPROMELL 0.3% 0.9 ML OPHTHALMIC SOLUTION [PF] OU PRN (17:15)
[2019-10-09] MEDS: HYDROCODONE/ACETAMINOPHEN 5-325 MG TABLET PO PRN ×2 (17:24→23:59)
[2019-10-10 03:49] VITALS: BP 132/85
[2019-10-10] MEDS: HYDROCODONE/ACETAMINOPHEN 5-325 MG TABLET PO PRN ×3 (07:04→19:00)
[2019-10-10 07:29] VITALS: BP 148/85
[2019-10-10] MEDS: ASPIRIN 81 MG CHEWABLE TABLET PO SCH (08:42)
[2019-10-10] MEDS: MULTIVITAMINS WITH MINERALS, THERAPEUTIC TABLET PO SCH (08:42)
[2019-10-10] MEDS: FAMOTIDINE 20 MG TABLET PO SCH (08:42)
[2019-10-10] MEDS: HEPARIN SODIUM,PORCINE 5,000 UNITS/ML VIAL SQ SCH ×3 (08:43→16:00)
[2019-10-10] MEDS: DOCUSATE SODIUM 100 MG CAPSULE PO SCH ×2 (08:43→20:00)
[2019-10-10] MEDS: ACETAMINOPHEN 325 MG TABLET PO PRN ×3 (09:23→21:04)
[2019-10-10] MEDS: CefTRIAXone 1 GM/DEXTROSE 50 ML IV SCH (10:22)
[2019-10-10 11:08] VITALS: BP 152/85
[2019-10-10 15:02] VITALS: BP 157/98
[2019-10-10 21:10] VITALS: BP 153/97
[2019-10-10] MEDS ORDERED: HydrALAZINE HCL 20 MG/ML VIAL IVP PRN (21:45)
[2019-10-11 00:45] VITALS: BP 148/94
[2019-10-11] MEDS: HYDROCODONE/ACETAMINOPHEN 5-325 MG TABLET PO PRN ×3 (00:58→15:53)
[2019-10-11] MEDS: HEPARIN SODIUM,PORCINE 5,000 UNITS/ML VIAL SQ SCH ×3 (01:03→15:55)
[2019-10-11] MEDS: ACETAMINOPHEN 325 MG TABLET PO PRN (03:44)
[2019-10-11 04:07] VITALS: BP 137/94
[2019-10-11 05:47] LABS: GLUCOMETER DEV NAME(LOC) 6S.1; GLUCOSE,POINT OF CARE 99 MG/DL (70-110)
[2019-10-11 06:42] LABS: GLUCOMETER DEV NAME(LOC) 6S.1; GLUCOSE,POINT OF CARE 129 MG/DL (70-110)
[2019-10-11 07:30] VITALS: BP 109/67
[2019-10-11] MEDS ORDERED: LISINOPRIL 10 MG TABLET PO SCH (09:00)
[2019-10-11] MEDS: MULTIVITAMINS WITH MINERALS, THERAPEUTIC TABLET PO SCH (09:01)
[2019-10-11] MEDS: DOCUSATE SODIUM 100 MG CAPSULE PO SCH (09:01)
[2019-10-11] MEDS: FAMOTIDINE 20 MG TABLET PO SCH (09:02)
[2019-10-11] MEDS: CefTRIAXone 1 GM/DEXTROSE 50 ML IV SCH (09:07)
[2019-10-11] MEDS: ASPIRIN 81 MG CHEWABLE TABLET PO SCH (09:09)
[2019-10-11 11:30] VITALS: BP 104/76
[2019-10-11 11:40] LABS: GLUCOMETER DEV NAME(LOC) 6N.2; GLUCOSE,POINT OF CARE 118 MG/DL (70-110)
[2019-10-11] MEDS ORDERED: QUET200T PO (14:27)
[2019-10-11] MEDS ORDERED: TRAZ-257 PO (14:28)
[2019-10-11 15:23] VITALS: BP 110/79
[2019-10-11 20:33] LABS: GLUCOMETER DEV NAME(LOC) 6S.1; GLUCOSE,POINT OF CARE 116 MG/DL (70-110)
[2019-10-11] MEDS ORDERED: QUEtiapine FUMARATE 200 MG TABLET PO SCH (21:00)
[2019-10-11] MEDS ORDERED: TraZODone HCL 100 MG TABLET PO SCH (21:00)
== END 2019-10-11 18:00 | disposition home health service (06) | DRG 640 ==
LOC: EMS 08:28 → 5S 16:59 → 6S 17:39
PROVIDERS: ADMIT Internal Medicine; ATTEND Internal Medicine
DX: E87.1 Hypo-osmolality and hyponatremia (principal); G92 Toxic encephalopathy; N39.0 Urinary tract infection, site not specified; R65.10 Systemic inflammatory response syndrome (SIRS) of non-infectious origin without acute organ dysfunction; F31.30 Bipolar disorder, current episode depressed, mild or moderate severity, unspecified; R53.81 Other malaise; E03.9 Hypothyroidism, unspecified; E11.9 Type 2 diabetes mellitus without complications; I10 Essential (primary) hypertension; E78.00 Pure hypercholesterolemia, unspecified; F25.9 Schizoaffective disorder, unspecified; F60.0 Paranoid personality disorder; J44.9 Chronic obstructive pulmonary disease, unspecified; S02.2XXA Fracture of nasal bones, initial encounter for closed fracture; S41.112A Laceration without foreign body of left upper arm, initial encounter; W07.XXXA Fall from chair, initial encounter; G89.29 Other chronic pain; F41.9 Anxiety disorder, unspecified; F17.210 Nicotine dependence, cigarettes, uncomplicated; K21.9 Gastro-esophageal reflux disease without esophagitis; M19.90 Unspecified osteoarthritis, unspecified site; M54.30 Sciatica, unspecified side; Z91.030 Bee allergy status; Z79.899 Other long term (current) drug therapy; Z59.0 Homelessness; Z82.49 Family history of ischemic heart disease and other diseases of the circulatory system; Z83.3 Family history of diabetes mellitus; Z93.3 Colostomy status; Z79.84 Long term (current) use of oral hypoglycemic drugs; Z79.01 Long term (current) use of anticoagulants; Y93.89 Activity, other specified; Y92.89 Other specified places as the place of occurrence of the external cause; Y99.8 Other external cause status; Z03.818 Encounter for observation for suspected exposure to other biological agents ruled out
CPT/HCPCS: 36600; 70450; 70486; 72125; 73502; 73503; 82805; 87086; 90715; 93005; 97162; 99291; G0480; J0360; J0696; J1200; J1630; J1644; J1885; J2060; J3230; 36415-L1; 36415-TC; 71045-TC; 87635

== ENCOUNTER 2020-02-05 17:09 | Inpatient (IN) | payer MEDICARE, OTHER ==
[~2020-02-05] VITALS: Ht 149.9 cm; Wt 87.3 kg
[~2020-02-05 17:09] MED LIST changes: +ATOR20TA86 PO; +BENZ1TAB10 PO; +LEVO200 PO; +LISI-660 PO; -METF-514 PO; +METF-845 PO; -NAPR-1193 PO; -PREG200C28 PO; +QUET200T PO; +TRAZ-257 PO
[2020-02-05] MEDS ORDERED: ACETAMINOPHEN 325 MG TABLET PO ONE (18:30)
[2020-02-05 20:01] LABS: BASOPHILS % (AUTO) 0.3 % (0.0-2.0); EOSINOPHILS % (AUTO) 0.3 % (1.0-6.0); HEMATOCRIT 34.9 % (36-46); HEMOGLOBIN 11.5 g/dL (12.0-16.0); LYMPHOCYTES # (AUTO) 1.5 K/uL (1.0-4.8); MEAN CORPUSCULAR HEMOGLOBIN 27.3 pg (26.0-34.0); MEAN CORPUSCULAR HGB CONC 32.9 G/dL (31.0-37.0); MEAN CORPUSCULAR VOLUME 83 fL (80-100); MONOCYTES # (AUTO) 0.8 K/uL (0.1-1.0); MONOCYTES % (AUTO) 6.2 % (2.0-9.0); NEUTROPHILS # (AUTO) 10.9 K/uL (1.8-7.7); NEUTROPHILS % (AUTO) 82.2 % (40.0-70.0); PLATELET COUNT (AUTO) 433 K/uL (150-450); RED CELL DISTRIBUTION WIDTH 16.1 % (11.5-14.5)
[2020-02-05 20:16] LABS: ANION GAP 8 mmol/L (8-16); CALCIUM, TOTAL 9.8 mg/dL (8.8-10.5); CARBON DIOXIDE 24 mmol/L (22-29); CHLORIDE 97 mmol/L (98-107); CREATININE 0.84 mg/dL (0.60-1.30); GLOMERULAR FILTR. RATE CALC > 60 mL/min (>60); GLUCOSE,RANDOM 73 mg/dL (70-110); POTASSIUM 4.2 mmol/L (3.5-5.1); SODIUM SERUM 129 mmol/L (136-145); UREA NITROGEN, BLOOD 14 mg/dL (7-18)
[2020-02-05 20:22] LABS: ALANINE AMINOTRANSFERASE 20 U/L (12-78); ALBUMIN 3.4 g/dL (3.4-5.0); ALKALINE PHOSPHATASE 130 U/L (46-116); ASPARTATE AMINOTRANSFERASE 32 U/L (15-37); BILIRUBIN,TOTAL 0.4 mg/dL (0.1-1.0); TOTAL PROTEIN, SERUM 6.8 g/dL (6.4-8.2)
[2020-02-05] MEDS ORDERED: SODIUM CHLORIDE 0.9% 250 ML IV ONE (21:00)
[2020-02-05] MEDS ORDERED: ACETAMINOPHEN 325 MG TABLET PO PRN (21:30)
[2020-02-05] MEDS ORDERED: 0.9% SODIUM CHLORIDE 10 ML SYRINGE IVP PRN (21:30)
[2020-02-05] MEDS ORDERED: ONDANSETRON HCL 4 MG/2 ML VIAL IVP PRN (21:30)
[2020-02-05] MEDS ORDERED: KETOROLAC TROMETHAMINE 30 MG/ML VIAL IVP ONE (21:45)
[2020-02-05] MEDS ORDERED: ONDANSETRON HCL 4 MG/2 ML VIAL IVP ONE (21:45)
[2020-02-05] MEDS ORDERED: HYDROmorphone 2 MG/ML SYRINGE IVP ONE (21:45)
[2020-02-05 23:57] LABS: ANION GAP 7 mmol/L (8-16); CALCIUM, TOTAL 9.5 mg/dL (8.8-10.5); CARBON DIOXIDE 28 mmol/L (22-29); CHLORIDE 100 mmol/L (98-107); CREATININE 0.79 mg/dL (0.60-1.30); GLOMERULAR FILTR. RATE CALC > 60 mL/min (>60); GLUCOSE,RANDOM 88 mg/dL (70-110); POTASSIUM 4.1 mmol/L (3.5-5.1); SODIUM SERUM 135 mmol/L (136-145); UREA NITROGEN, BLOOD 13 mg/dL (7-18)
[2020-02-06 00:30] VITALS: BP 140/78
[2020-02-06 05:37] VITALS: BP 110/75
[2020-02-06 06:58] LABS: ANION GAP 7 mmol/L (8-16); CALCIUM, TOTAL 9.1 mg/dL (8.8-10.5); CARBON DIOXIDE 25 mmol/L (22-29); CHLORIDE 101 mmol/L (98-107); CREATININE 0.75 mg/dL (0.60-1.30); GLOMERULAR FILTR. RATE CALC > 60 mL/min (>60); GLUCOSE,RANDOM 70 mg/dL (70-110); POTASSIUM 4.2 mmol/L (3.5-5.1); SODIUM SERUM 133 mmol/L (136-145); UREA NITROGEN, BLOOD 14 mg/dL (7-18)
[2020-02-06 07:25] VITALS: BP 139/96
[2020-02-06] MEDS ORDERED: INFLUENZA VIRUS VACCINE QVS 2020-21 (6MO+)/PF 60 MCG/0.5 ML SYRINGE IM ONE (11:00)
[2020-02-06 11:35] VITALS: BP 106/65
[2020-02-06] MEDS: ACETAMINOPHEN 325 MG TABLET PO PRN ×2 (11:36→17:45)
[2020-02-06] MEDS: DULoxetine HCL 20 MG CAPSULE PO SCH (12:12)
[2020-02-06] MEDS: LIDOCAINE 5% TRANSDERMAL PATCH TD SCH (12:12)
[2020-02-06] MEDS: NICOTINE 14 MG/24 HOUR PATCH TD SCH (12:12)
[2020-02-06] MEDS ORDERED: ONDANSETRON HCL 4 MG/2 ML VIAL IVP PRN (12:15)
[2020-02-06] MEDS ORDERED: HEPARIN SODIUM,PORCINE 5,000 UNITS/ML VIAL SQ SCH (12:15)
[2020-02-06] MEDS ORDERED: 0.9% SODIUM CHLORIDE 10 ML SYRINGE IVP PRN ×2 (12:15)
[2020-02-06] MEDS ORDERED: IPRATROPIUM BROMIDE 0.5 MG/2.5 ML NEB SOLUTION NEB PRN (12:15)
[2020-02-06] MEDS ORDERED: ALBUTEROL SULFATE 2.5 MG/0.5 ML NEB SOLUTION NEB PRN (12:15)
[2020-02-06] MEDS ORDERED: MAGNESIUM HYDROXIDE SUSPENSION 30 ML UDCUP PO PRN (12:15)
[2020-02-06] MEDS ORDERED: ZOLPIDEM TARTRATE 5 MG TABLET PO PRN (12:15)
[2020-02-06] MEDS ORDERED: CefTRIAXone 1 GM/DEXTROSE 50 ML IV ONE (13:00)
[2020-02-06] MEDS: BENZTROPINE MESYLATE 1 MG TABLET PO SCH ×2 (14:27→21:04)
[2020-02-06] MEDS: LEVOTHYROXINE SODIUM 200 MCG TABLET PO SCH (14:27)
[2020-02-06] MEDS: PANTOPRAZOLE SODIUM 40 MG DR TABLET PO SCH (14:30)
[2020-02-06] MEDS: LISINOPRIL 5 MG TABLET PO SCH (14:30)
[2020-02-06] MEDS: ATORVASTATIN CALCIUM 20 MG TABLET PO SCH (14:30)
[2020-02-06] MEDS ORDERED: SODIUM CHLORIDE 0.9% 250 ML IV ONE (14:33)
[2020-02-06 15:21] LABS: AMPHET/METH SCREEN,URINE NEGATIVE (NEGATIVE); BARBITURATE SCREEN, URINE NEGATIVE (NEGATIVE); BENZODIAZEPINES SCREEN,URINE NEGATIVE (NEGATIVE); CANNABINOID SCREEN,URINE NEGATIVE (NEGATIVE); COCAINE SCREEN,URINE NEGATIVE (NEGATIVE); METHADONE SCREEN, URINE NEGATIVE (NEGATIVE); OPIATE SCREEN,URINE POSITIVE (NEGATIVE); PHENCYCLIDINE SCREEN,URINE NEGATIVE (NEGATIVE); SODIUM,URINE RANDOM 70 mmol/l (20-110)
[2020-02-06 15:49] VITALS: BP 135/84
[2020-02-06] MEDS: SODIUM CHLORIDE 1 GM TABLET PO SCH ×2 (17:42→21:04)
[2020-02-06] MEDS: MetFORMIN HCL 500 MG ER TABLET PO SCH (18:00)
[2020-02-06 19:16] VITALS: BP 149/71
[2020-02-06 21:03] LABS: GLUCOMETER DEV NAME(LOC) 5N.3; GLUCOSE,POINT OF CARE 69 MG/DL (70-110)
[2020-02-06] MEDS: QUEtiapine FUMARATE 200 MG TABLET PO SCH (21:04)
[2020-02-06] MEDS: TraZODone HCL 100 MG TABLET PO SCH (21:04)
[2020-02-06] MEDS: HEPARIN SODIUM,PORCINE 5,000 UNITS/ML VIAL SQ SCH (21:05)
[2020-02-06] MEDS: -LIDODERM PATCH NOTE- MISC SCH (21:14)
[2020-02-06 21:58] LABS: GLUCOMETER DEV NAME(LOC) 5S.1; GLUCOSE,POINT OF CARE 72 MG/DL (70-110)
[2020-02-07] MEDS: PANTOPRAZOLE SODIUM 40 MG DR TABLET PO SCH (05:32)
[2020-02-07] MEDS: LEVOTHYROXINE SODIUM 200 MCG TABLET PO SCH (05:32)
[2020-02-07] MEDS: ACETAMINOPHEN 325 MG TABLET PO PRN ×2 (05:49→16:02)
[2020-02-07 06:13] LABS: GLUCOMETER DEV NAME(LOC) 5S.1; GLUCOSE,POINT OF CARE 78 MG/DL (70-110)
[2020-02-07 07:54] LABS: ANION GAP 9 mmol/L (8-16); CALCIUM, TOTAL 9.3 mg/dL (8.8-10.5); CARBON DIOXIDE 24 mmol/L (22-29); CHLORIDE 97 mmol/L (98-107); CREATININE 0.63 mg/dL (0.60-1.30); GLOMERULAR FILTR. RATE CALC > 60 mL/min (>60); GLUCOSE,RANDOM 84 mg/dL (70-110); POTASSIUM 4.2 mmol/L (3.5-5.1); SODIUM SERUM 130 mmol/L (136-145); UREA NITROGEN, BLOOD 11 mg/dL (7-18)
[2020-02-07] MEDS: MetFORMIN HCL 500 MG ER TABLET PO SCH ×2 (08:00→18:00)
[2020-02-07] MEDS: LISINOPRIL 5 MG TABLET PO SCH (08:16)
[2020-02-07] MEDS: HEPARIN SODIUM,PORCINE 5,000 UNITS/ML VIAL SQ SCH ×2 (08:17→20:46)
[2020-02-07] MEDS: NICOTINE 14 MG/24 HOUR PATCH TD SCH (08:17)
[2020-02-07] MEDS: BENZTROPINE MESYLATE 1 MG TABLET PO SCH ×2 (08:18→20:47)
[2020-02-07] MEDS: ATORVASTATIN CALCIUM 20 MG TABLET PO SCH (08:18)
[2020-02-07] MEDS: LIDOCAINE 5% TRANSDERMAL PATCH TD SCH (08:18)
[2020-02-07] MEDS: SODIUM CHLORIDE 1 GM TABLET PO SCH ×3 (08:28→20:47)
[2020-02-07] MEDS: DULoxetine HCL 20 MG CAPSULE PO SCH (08:37)
[2020-02-07 11:01] LABS: BASOPHILS % (AUTO) 0.7 % (0.0-2.0); EOSINOPHILS % (AUTO) 1.5 % (1.0-6.0); HEMATOCRIT 38.7 % (36-46); HEMOGLOBIN 12.9 g/dL (12.0-16.0); LYMPHOCYTES # (AUTO) 1.1 K/uL (1.0-4.8); LYMPHOCYTES % (AUTO) 10.4 % (22.0-44.0); MEAN CORPUSCULAR HEMOGLOBIN 27.8 pg (26.0-34.0); MEAN CORPUSCULAR HGB CONC 33.3 G/dL (31.0-37.0); MEAN CORPUSCULAR VOLUME 84 fL (80-100); MONOCYTES # (AUTO) 0.4 K/uL (0.1-1.0); MONOCYTES % (AUTO) 4.1 % (2.0-9.0); NEUTROPHILS # (AUTO) 8.7 K/uL (1.8-7.7); NEUTROPHILS % (AUTO) 83.3 % (40.0-70.0); PLATELET COUNT (AUTO) 459 K/uL (150-450); RED BLOOD CELL COUNT(AUTO) 4.62 MIL/uL (4.00-5.20); RED CELL DISTRIBUTION WIDTH 16.4 % (11.5-14.5)
[2020-02-07 11:27] LABS: CHOL/HDL RATIO 2.9 (3.9-5.7); CHOLESTEROL 103 mg/dL (131-200); HDL CHOLESTEROL 35 mg/dL (40-60); LDL CHOL (CALC.) 43 mg/dL (0-130); THYROID STIMULATING HORMONE 0.02 uIU/mL (0.36-3.74); TRIGLYCERIDES 126 mg/dL (15-150)
[2020-02-07] MEDS ORDERED: TOLVAPTAN 15 MG TABLET PO ONE (11:30)
[2020-02-07 11:36] VITALS: BP 118/63
[2020-02-07] MEDS ORDERED: [UNRECOGNIZED DRUG - OTHER] IM ONE (13:00)
[2020-02-07 13:12] LABS: INR 1.1 (0.9-1.1); PROTHROMBIN TIME 11.2 SEC (9.4-11.6)
[2020-02-07] MEDS: -LIDODERM PATCH NOTE- MISC SCH (20:47)
[2020-02-07] MEDS: QUEtiapine FUMARATE 200 MG TABLET PO SCH (20:47)
[2020-02-07] MEDS: TraZODone HCL 100 MG TABLET PO SCH (20:47)
[2020-02-07 20:49] VITALS: BP 149/94
[2020-02-07 23:13] VITALS: BP 138/79
[2020-02-08 05:20] VITALS: BP 136/84
[2020-02-08] MEDS: LEVOTHYROXINE SODIUM 200 MCG TABLET PO SCH (06:43)
[2020-02-08] MEDS: PANTOPRAZOLE SODIUM 40 MG DR TABLET PO SCH (06:44)
[2020-02-08 07:01] LABS: ALANINE AMINOTRANSFERASE 17 U/L (12-78); ALBUMIN 2.8 g/dL (3.4-5.0); ALKALINE PHOSPHATASE 112 U/L (46-116); ANION GAP 9 mmol/L (8-16); ASPARTATE AMINOTRANSFERASE 16 U/L (15-37); BILIRUBIN,TOTAL 0.4 mg/dL (0.1-1.0); CALCIUM, TOTAL 9.4 mg/dL (8.8-10.5); CARBON DIOXIDE 25 mmol/L (22-29); CHLORIDE 100 mmol/L (98-107); CREATININE 0.73 mg/dL (0.60-1.30); GLOMERULAR FILTR. RATE CALC > 60 mL/min (>60); GLUCOSE,RANDOM 103 mg/dL (70-110); POTASSIUM 4.2 mmol/L (3.5-5.1); SODIUM SERUM 134 mmol/L (136-145); TOTAL PROTEIN, SERUM 6.3 g/dL (6.4-8.2); UREA NITROGEN, BLOOD 13 mg/dL (7-18)
[2020-02-08 07:12] VITALS: BP 128/64
[2020-02-08] MEDS: MetFORMIN HCL 500 MG ER TABLET PO SCH ×2 (08:00→17:08)
[2020-02-08] MEDS: ATORVASTATIN CALCIUM 20 MG TABLET PO SCH (09:14)
[2020-02-08] MEDS: BENZTROPINE MESYLATE 1 MG TABLET PO SCH ×2 (09:14→20:19)
[2020-02-08] MEDS: LISINOPRIL 5 MG TABLET PO SCH (09:14)
[2020-02-08] MEDS: DULoxetine HCL 20 MG CAPSULE PO SCH (09:14)
[2020-02-08] MEDS: HEPARIN SODIUM,PORCINE 5,000 UNITS/ML VIAL SQ SCH ×2 (09:14→20:19)
[2020-02-08] MEDS: NICOTINE 14 MG/24 HOUR PATCH TD SCH (09:15)
[2020-02-08] MEDS: LIDOCAINE 5% TRANSDERMAL PATCH TD SCH (09:16)
[2020-02-08] MEDS: SODIUM CHLORIDE 1 GM TABLET PO SCH ×3 (09:16→20:18)
[2020-02-08] MEDS ORDERED: DENTURE ADHESIVE 68 GM CREAM DT PRN (10:00)
[2020-02-08] MEDS: ACETAMINOPHEN 325 MG TABLET PO PRN ×2 (10:04→17:09)
[2020-02-08 10:32] VITALS: BP 122/78
[2020-02-08] MEDS ORDERED: NACL1 PO (12:00)
[2020-02-08 12:34] LABS: COVID AG,FIA SOURCE NASOPHARYNGEAL
[2020-02-08 15:22] VITALS: BP 134/72
[2020-02-08] MEDS: TraZODone HCL 100 MG TABLET PO SCH (20:18)
[2020-02-08] MEDS: QUEtiapine FUMARATE 200 MG TABLET PO SCH (20:18)
[2020-02-08] MEDS: -LIDODERM PATCH NOTE- MISC SCH (20:19)
[2020-02-08 20:35] VITALS: BP 137/76
[2020-02-09 00:29] VITALS: BP 104/65
[2020-02-09 04:20] VITALS: BP 104/62
[2020-02-09] MEDS: LEVOTHYROXINE SODIUM 200 MCG TABLET PO SCH (06:18)
[2020-02-09] MEDS: PANTOPRAZOLE SODIUM 40 MG DR TABLET PO SCH (06:19)
[2020-02-09] MEDS: ACETAMINOPHEN 325 MG TABLET PO PRN (06:20)
[2020-02-09 07:07] VITALS: BP 112/58
[2020-02-09 07:27] LABS: ALANINE AMINOTRANSFERASE 21 U/L (12-78); ALBUMIN 2.8 g/dL (3.4-5.0); ALKALINE PHOSPHATASE 111 U/L (46-116); ANION GAP 5 mmol/L (8-16); ASPARTATE AMINOTRANSFERASE 18 U/L (15-37); BILIRUBIN,TOTAL 0.4 mg/dL (0.1-1.0); CALCIUM, TOTAL 9.2 mg/dL (8.8-10.5); CARBON DIOXIDE 28 mmol/L (22-29); CHLORIDE 102 mmol/L (98-107); CREATININE 0.58 mg/dL (0.60-1.30); GLOMERULAR FILTR. RATE CALC > 60 mL/min (>60); GLUCOSE,RANDOM 112 mg/dL (70-110); POTASSIUM 4.3 mmol/L (3.5-5.1); SODIUM SERUM 135 mmol/L (136-145); TOTAL PROTEIN, SERUM 6.3 g/dL (6.4-8.2); UREA NITROGEN, BLOOD 12 mg/dL (7-18)
[2020-02-09] MEDS: NICOTINE 14 MG/24 HOUR PATCH TD SCH (08:33)
[2020-02-09] MEDS: LIDOCAINE 5% TRANSDERMAL PATCH TD SCH (08:34)
[2020-02-09] MEDS: ATORVASTATIN CALCIUM 20 MG TABLET PO SCH (08:34)
[2020-02-09] MEDS: LISINOPRIL 5 MG TABLET PO SCH (08:34)
[2020-02-09] MEDS: SODIUM CHLORIDE 1 GM TABLET PO SCH ×2 (08:34→16:00)
[2020-02-09] MEDS: BENZTROPINE MESYLATE 1 MG TABLET PO SCH (08:34)
[2020-02-09] MEDS: MetFORMIN HCL 500 MG ER TABLET PO SCH (08:34)
[2020-02-09] MEDS: DULoxetine HCL 20 MG CAPSULE PO SCH (08:34)
[2020-02-09] MEDS: HEPARIN SODIUM,PORCINE 5,000 UNITS/ML VIAL SQ SCH (08:35)
[2020-02-09 10:46] VITALS: BP 147/70
[2020-02-09] MEDS ORDERED: DULO20CA27 PO (13:22)
[2020-02-09] MEDS ORDERED: LIDO700A15 TP (13:23)
[2020-02-09] MEDS ORDERED: ACET650S24 PR (13:26)
[2020-02-09] MEDS ORDERED: NACL1 PO (13:26)
[2020-02-09] MEDS ORDERED: MOM30 PO (13:28)
[2020-02-09] MEDS ORDERED: ONDA-104 PO (13:28)
[2020-02-09] MEDS ORDERED: ZOLP-280 PO (13:29)
[2020-02-09 15:51] VITALS: BP 148/76
== END 2020-02-09 16:06 | DRG 641 ==
LOC: EMS 17:12 → 5S 21:30
PROVIDERS: ADMIT Internal Medicine; ATTEND Internal Medicine
DX: E87.1 Hypo-osmolality and hyponatremia (principal); M16.11 Unilateral primary osteoarthritis, right hip; F41.9 Anxiety disorder, unspecified; E03.9 Hypothyroidism, unspecified; E78.5 Hyperlipidemia, unspecified; E11.9 Type 2 diabetes mellitus without complications; I10 Essential (primary) hypertension; F03.90 Unspecified dementia, unspecified severity, without behavioral disturbance, psychotic disturbance, mood disturbance, and anxiety; D72.829 Elevated white blood cell count, unspecified; J44.9 Chronic obstructive pulmonary disease, unspecified; E66.9 Obesity, unspecified; Z68.39 Body mass index [BMI] 39.0-39.9, adult; E78.00 Pure hypercholesterolemia, unspecified; Z96.653 Presence of artificial knee joint, bilateral; E86.0 Dehydration; F25.9 Schizoaffective disorder, unspecified; G89.29 Other chronic pain; Z85.3 Personal history of malignant neoplasm of breast; Z87.891 Personal history of nicotine dependence; Z90.13 Acquired absence of bilateral breasts and nipples; Z93.3 Colostomy status
CPT/HCPCS: 73502; 83036; 83930; 83935; 84300; 84443; 87426; 93005; 97162; 97166; 97530; 97535; J0696; J1170; J1644; J1885; J2405; J7050

== ENCOUNTER 2020-02-28 01:51 | Emergency (ER) | payer MEDICARE, OTHER ==
[~2020-02-28] VITALS: Ht 167.6 cm; Wt 81.8 kg
[~2020-02-28 01:51] MED LIST changes: +ACET650S24 PR; +DULO20CA27 PO; +LIDO700A15 TP; +MOM30 PO; +NACL1 PO; +ONDA-104 PO; +ZOLP-280 PO
[2020-02-28] MEDS ORDERED: METOCLOPRAMIDE HCL 5 MG/ML 2 ML VIAL IVP ONE (02:15)
[2020-02-28 02:18] LABS: GLUCOSE,POINT OF CARE 177 MG/DL (70-110)
[2020-02-28 02:35] LABS: COVID AG,FIA SOURCE NASOPHARYNGEAL
[2020-02-28] MEDS ORDERED: FAMOTIDINE 10 MG/ML 2 ML VIAL IVP ONE (02:45)
[2020-02-28] MEDS ORDERED: PANTOPRAZOLE SODIUM 40 MG/VIAL IVP ONE (02:45)
[2020-02-28 02:52] LABS: BASOPHILS % (AUTO) 0.1 % (0.0-2.0); EOSINOPHILS % (AUTO) 0.2 % (1.0-6.0); HEMATOCRIT 39.1 % (36-46); HEMOGLOBIN 12.9 g/dL (12.0-16.0); LYMPHOCYTES # (AUTO) 0.9 K/uL (1.0-4.8); LYMPHOCYTES % (AUTO) 7.2 % (22.0-44.0); MEAN CORPUSCULAR HEMOGLOBIN 27.5 pg (26.0-34.0); MEAN CORPUSCULAR HGB CONC 32.9 G/dL (31.0-37.0); MEAN CORPUSCULAR VOLUME 83 fL (80-100); MONOCYTES # (AUTO) 0.5 K/uL (0.1-1.0); MONOCYTES % (AUTO) 3.7 % (2.0-9.0); NEUTROPHILS # (AUTO) 11.6 K/uL (1.8-7.7); PLATELET COUNT (AUTO) 422 K/uL (150-450); RED BLOOD CELL COUNT(AUTO) 4.69 MIL/uL (4.00-5.20); RED CELL DISTRIBUTION WIDTH 16.6 % (11.5-14.5)
[2020-02-28 02:56] LABS: ANION GAP 9 mmol/L (8-16); CALCIUM, TOTAL 9.8 mg/dL (8.8-10.5); CARBON DIOXIDE 27 mmol/L (22-29); CHLORIDE 95 mmol/L (98-107); CREATININE 0.74 mg/dL (0.60-1.30); GLOMERULAR FILTR. RATE CALC > 60 mL/min (>60); GLUCOSE,RANDOM 186 mg/dL (70-110); SODIUM SERUM 131 mmol/L (136-145); UREA NITROGEN, BLOOD 13 mg/dL (7-18)
[2020-02-28 03:03] LABS: ALANINE AMINOTRANSFERASE 18 U/L (12-78); ALBUMIN 3.4 g/dL (3.4-5.0); ALKALINE PHOSPHATASE 110 U/L (46-116); ASPARTATE AMINOTRANSFERASE 17 U/L (15-37); BILIRUBIN,TOTAL 0.3 mg/dL (0.1-1.0); TOTAL PROTEIN, SERUM 6.5 g/dL (6.4-8.2)
[2020-02-28 03:05] LABS: NEUTROPHILS % (AUTO) 88.8 % (40.0-70.0)
[2020-02-28] MEDS ORDERED: IOVERSOL 350 MG/ML 100 ML VIAL ONE (03:32)
[2020-02-28] MEDS ORDERED: SODIUM CHLORIDE 0.9% 100 ML ONE (03:33)
[2020-02-28 04:10] LABS: LIPASE 72 U/L (73-393)
[2020-02-28] MEDS ORDERED: SODIUM CHLORIDE 0.9% 250 ML IV ONE (04:45)
[2020-02-28] MEDS ORDERED: PB/HYOSCY/ATR/SCOP/LIDO/MAALOX 55 ML BOTTLE PO ONE (04:45)
[2020-02-28 05:51] VITALS: BP 175/86
== END 2020-02-28 06:35 | disposition home or self-care (01) ==
LOC: EMS 01:53
DX: R10.9 Unspecified abdominal pain (principal); R11.10 Vomiting, unspecified; Z20.828 Contact with and (suspected) exposure to other viral communicable diseases; F17.210 Nicotine dependence, cigarettes, uncomplicated; F12.90 Cannabis use, unspecified, uncomplicated; F32.9 Major depressive disorder, single episode, unspecified; I10 Essential (primary) hypertension; E03.9 Hypothyroidism, unspecified; Z91.030 Bee allergy status; Z79.899 Other long term (current) drug therapy
CPT/HCPCS: 36415; 71045; 74177; 80053; 82271; 82962; 83690; 84484; 85025; 87426; 93005; 96361; 96374; 96375; 99285; C9113; J2765; J3490; J7050 ×2; Q9967

== ENCOUNTER 2020-03-24 11:01 | Emergency (ER) | payer MEDICARE, OTHER ==
[~2020-03-24] VITALS: Ht 162.6 cm; Wt 86.4 kg
[~2020-03-24 11:01] MED LIST changes: -LISI-660 PO; +LISI-892 PO
[2020-03-24] MEDS ORDERED: MORPHINE SULFATE 2 MG/ML SYRINGE IM ONE (14:15)
[2020-03-24] MEDS ORDERED: ONDANSETRON HCL 4 MG/2 ML VIAL IVP ONE (14:45)
[2020-03-24] MEDS ORDERED: MORPHINE SULFATE 2 MG/ML SYRINGE IVP ONE (14:45)
[2020-03-24] MEDS ORDERED: KETOROLAC TROMETHAMINE 30 MG/ML VIAL IM ONE (17:30)
[2020-03-24] MEDS ORDERED: HYDROCODONE/ACETAMINOPHEN 5-325 MG TABLET PO ONE (17:30)
[2020-03-24 19:38] VITALS: BP 137/77
== END 2020-03-24 19:53 | disposition home or self-care (01) ==
LOC: EMS 11:01
DX: M16.11 Unilateral primary osteoarthritis, right hip (principal)
CPT/HCPCS: 70450; 72170; 73502; 73700; 96372; 99285; J1885; J2270

== ENCOUNTER 2020-04-15 13:17 | Emergency (ER) | payer MEDICARE, OTHER ==
[~2020-04-15] VITALS: Ht 160 cm; Wt 86.0 kg
[~2020-04-15 13:17] MED LIST changes: +LISI-660 PO; -LISI-892 PO
[2020-04-15] MEDS ORDERED: MORPHINE SULFATE 4 MG/ML SYRINGE IVP ONE (14:30)
[2020-04-15 15:42] LABS: BASOPHILS % (AUTO) 0.8 % (0.0-2.0); EOSINOPHILS % (AUTO) 3.3 % (1.0-6.0); HEMATOCRIT 36.8 % (36-46); LYMPHOCYTES # (AUTO) 2.1 K/uL (1.0-4.8); LYMPHOCYTES % (AUTO) 23.7 % (22.0-44.0); MEAN CORPUSCULAR HGB CONC 32.6 G/dL (31.0-37.0); MEAN CORPUSCULAR VOLUME 86 fL (80-100); MONOCYTES # (AUTO) 0.6 K/uL (0.1-1.0); MONOCYTES % (AUTO) 6.7 % (2.0-9.0); NEUTROPHILS # (AUTO) 5.7 K/uL (1.8-7.7); NEUTROPHILS % (AUTO) 65.5 % (40.0-70.0); PLATELET COUNT (AUTO) 436 K/uL (150-450); RED CELL DISTRIBUTION WIDTH 18.4 % (11.5-14.5)
[2020-04-15 15:50] LABS: ANION GAP 7 mmol/L (8-16); CALCIUM, TOTAL 9.8 mg/dL (8.8-10.5); CARBON DIOXIDE 25 mmol/L (22-29); CHLORIDE 102 mmol/L (98-107); CREATININE 0.83 mg/dL (0.60-1.30); GLOMERULAR FILTR. RATE CALC > 60 mL/min (>60); GLUCOSE,RANDOM 75 mg/dL (70-110); POTASSIUM 4.2 mmol/L (3.5-5.1); SODIUM SERUM 134 mmol/L (136-145); UREA NITROGEN, BLOOD 12 mg/dL (7-18)
[2020-04-15 15:56] LABS: ALANINE AMINOTRANSFERASE 14 U/L (12-78); ALBUMIN 3.1 g/dL (3.4-5.0); ALKALINE PHOSPHATASE 123 U/L (46-116); ASPARTATE AMINOTRANSFERASE 16 U/L (15-37); BILIRUBIN,TOTAL 0.3 mg/dL (0.1-1.0); TOTAL PROTEIN, SERUM 6.8 g/dL (6.4-8.2)
[2020-04-15 19:26] VITALS: BP 120/76
== END 2020-04-15 20:15 | disposition home or self-care (01) ==
LOC: EMS 13:17
DX: M85.40 Solitary bone cyst, unspecified site (principal); M19.90 Unspecified osteoarthritis, unspecified site; F41.9 Anxiety disorder, unspecified; F31.9 Bipolar disorder, unspecified; J45.909 Unspecified asthma, uncomplicated; E11.9 Type 2 diabetes mellitus without complications; E78.00 Pure hypercholesterolemia, unspecified; I10 Essential (primary) hypertension; F25.9 Schizoaffective disorder, unspecified; F17.210 Nicotine dependence, cigarettes, uncomplicated; F12.90 Cannabis use, unspecified, uncomplicated; Z79.899 Other long term (current) drug therapy; Z79.84 Long term (current) use of oral hypoglycemic drugs; Z91.030 Bee allergy status
CPT/HCPCS: 36415; 73502; 73562; 80053; 85025; 96374; 99284; J2270

== ENCOUNTER 2020-07-03 17:20 | Emergency (ER) | payer MEDICARE, OTHER ==
[~2020-07-03] VITALS: Ht 152.4 cm; Wt 84.1 kg
[~2020-07-03 17:20] MED LIST changes: +AMLO-258 PO; +CEFX2I IM; -LISI-660 PO; +LISI-892 PO; +METO-296 PO; +METR500 PO; +PANT-31 PO; +THIA100V4 IVP
[2020-07-03] MEDS ORDERED: HYDROCODONE/ACETAMINOPHEN 5-325 MG TABLET PO ONE (18:45)
[2020-07-03] MEDS ORDERED: KETOROLAC TROMETHAMINE 30 MG/ML VIAL IM ONE (18:45)
[2020-07-03 18:47] LABS: GLUCOSE,POINT OF CARE 113 MG/DL (70-110)
[2020-07-03 20:26] VITALS: BP 129/69
== END 2020-07-03 20:15 | disposition home or self-care (01) ==
LOC: EMS 17:20
DX: M16.11 Unilateral primary osteoarthritis, right hip (principal); F25.9 Schizoaffective disorder, unspecified; F17.210 Nicotine dependence, cigarettes, uncomplicated; F12.90 Cannabis use, unspecified, uncomplicated; J45.909 Unspecified asthma, uncomplicated; F31.9 Bipolar disorder, unspecified; I10 Essential (primary) hypertension; Z79.84 Long term (current) use of oral hypoglycemic drugs
CPT/HCPCS: 82962; 96372; 99283; J1885

== ENCOUNTER 2021-04-12 10:13 | Inpatient (IN) | payer MEDICARE, OTHER ==
[~2021-04-12] VITALS: Ht 160 cm; Wt 95.5 kg
[~2021-04-12 10:13] MED LIST changes: -CEFX2I IM; -LIDO700A15 TP; -METF-845 PO; -METR500 PO; -NACL1 PO; -THIA100V4 IVP; -ZOLP-280 PO
[2021-04-12] MEDS ORDERED: SODIUM CHLORIDE 0.9% 1,000 ML IV ONE (10:30)
[2021-04-12 11:05] LABS: BASOPHILS % (AUTO) 0.2 % (0.0-2.0); EOSINOPHILS % (AUTO) 0.1 % (1.0-6.0); HEMATOCRIT 33.3 % (36-46); LYMPHOCYTES # (AUTO) 0.7 K/uL (1.0-4.8); LYMPHOCYTES % (AUTO) 2.8 % (22.0-44.0); MEAN CORPUSCULAR HEMOGLOBIN 25.4 pg (26.0-34.0); MEAN CORPUSCULAR VOLUME 77 fL (80-100); MONOCYTES # (AUTO) 0.7 K/uL (0.1-1.0); MONOCYTES % (AUTO) 2.6 % (2.0-9.0); NEUTROPHILS # (AUTO) 24.3 K/uL (1.8-7.7); PLATELET COUNT (AUTO) 393 K/uL (150-450); RED BLOOD CELL COUNT(AUTO) 4.33 MIL/uL (4.00-5.20); RED CELL DISTRIBUTION WIDTH 16.3 % (11.5-14.5)
[2021-04-12 11:06] LABS: NEUTROPHILS % (AUTO) 94.3 % (40.0-70.0)
[2021-04-12 11:25] LABS: BILIRUBIN,TOTAL 0.2 mg/dL (0.1-1.0); CALCIUM, TOTAL 8.8 mg/dL (8.8-10.5); CREATININE 1.79 mg/dL (0.60-1.30); MAGNESIUM 2.2 mg/dL (1.80-2.40); PHOSPHORUS 3.3 mg/dL (2.5-4.9); POTASSIUM 4.8 mmol/L (3.5-5.1); TOTAL PROTEIN, SERUM 6.7 g/dL (6.4-8.2)
[2021-04-12 11:26] LABS: PROTHROMBIN TIME 11.1 SEC (9.4-11.6)
[2021-04-12] MEDS ORDERED: VANCOMYCIN HCL 1 GM/D5% WATER 200 ML IV ONE (11:45)
[2021-04-12] MEDS ORDERED: AZITHROMYCIN 500 MG/NS 250 ML IV ONE (11:45)
[2021-04-12] MEDS ORDERED: PIPERACILLIN/TAZO 3.375 GM/D5W 50 ML IV ONE (11:45)
[2021-04-12 11:46] LABS: COVID AG,FIA SOURCE NASOPHARYNGEAL
[2021-04-12] MEDS ORDERED: ONDANSETRON HCL 4 MG/2 ML VIAL IVP PRN ×2 (13:45→15:15)
[2021-04-12] MEDS ORDERED: ACETAMINOPHEN 325 MG TABLET PO PRN ×2 (13:45→15:15)
[2021-04-12] MEDS ORDERED: 0.9% SODIUM CHLORIDE 10 ML SYRINGE IVP PRN (13:45)
[2021-04-12 14:12] LABS: APPEARANCE,URINE CLEAR (CLEAR); BILIRUBIN,URINE NEGATIVE (NEGATIVE); GLUCOSE, URINE (UA) NEGATIVE (NEGATIVE); KETONES,URINE NEGATIVE (NEGATIVE); LEUKOCYTE ESTERASE ,URINE NEGATIVE (NEGATIVE); NITRATE,URINE NEGATIVE (NEGATIVE); OCCULT BLOOD,URINE NEGATIVE (NEGATIVE); PH,URINE 5.5 (5.0-8.0); PROTEIN,URINE NEGATIVE (NEGATIVE); UROBILINOGEN,URINE 0.2 mg/dL (<=1.0)
[2021-04-12] MEDS: SODIUM CHLORIDE 0.9% 1,000 ML IV SCH (14:45)
[2021-04-12] MEDS: SODIUM CHLORIDE 0.9% 250 ML IV SCH ×7 (15:00→16:15)
[2021-04-12] MEDS ORDERED: BISACODYL 10 MG RECTAL RECTAL SUPPOSITORY PR PRN (15:15)
[2021-04-12] MEDS ORDERED: *CLINICAL-LEVOFLOXACIN IVPB DOSING CLINICAL ONE (15:15)
[2021-04-12] MEDS ORDERED: MAGNESIUM HYDROXIDE SUSPENSION 30 ML UDCUP PO PRN (15:15)
[2021-04-12] MEDS: HEPARIN SODIUM,PORCINE 5,000 UNITS/ML VIAL SQ SCH (16:00)
[2021-04-12] MEDS ORDERED: LEVOFLOXACIN 750 MG/D5% WATER 150 ML IV SCH (18:00)
[2021-04-12] MEDS: DOCUSATE SODIUM 100 MG CAPSULE PO SCH (21:00)
[2021-04-13] MEDS: SODIUM CHLORIDE 0.9% 1,000 ML IV SCH ×2 (04:00→04:05)
[2021-04-13 05:24] LABS: EOSINOPHILS % (AUTO) 0.9 % (1.0-6.0); HEMATOCRIT 33.4 % (36-46); HEMOGLOBIN 10.9 g/dL (12.0-16.0); LYMPHOCYTES # (AUTO) 1.3 K/uL (1.0-4.8); LYMPHOCYTES % (AUTO) 6.6 % (22.0-44.0); MEAN CORPUSCULAR HEMOGLOBIN 25.3 pg (26.0-34.0); MEAN CORPUSCULAR HGB CONC 32.7 G/dL (31.0-37.0); MEAN CORPUSCULAR VOLUME 78 fL (80-100); MONOCYTES # (AUTO) 0.5 K/uL (0.1-1.0); MONOCYTES % (AUTO) 2.6 % (2.0-9.0); NEUTROPHILS # (AUTO) 17.6 K/uL (1.8-7.7); PLATELET COUNT (AUTO) 409 K/uL (150-450); RED CELL DISTRIBUTION WIDTH 16.9 % (11.5-14.5)
[2021-04-13 05:26] LABS: NEUTROPHILS % (AUTO) 89.9 % (40.0-70.0)
[2021-04-13 05:36] LABS: ALBUMIN 2.8 g/dL (3.4-5.0); BILIRUBIN,TOTAL 0.3 mg/dL (0.1-1.0); CREATININE 1.1 mg/dL (0.60-1.30); POTASSIUM 4.6 mmol/L (3.5-5.1); TOTAL PROTEIN, SERUM 6.7 g/dL (6.4-8.2)
[2021-04-13] MEDS: HEPARIN SODIUM,PORCINE 5,000 UNITS/ML VIAL SQ SCH ×4 (08:00→23:24)
[2021-04-13] MEDS: PANTOPRAZOLE SODIUM 40 MG DR TABLET PO SCH (09:00)
[2021-04-13] MEDS: ATORVASTATIN CALCIUM 20 MG TABLET PO SCH (09:00)
[2021-04-13] MEDS: DOCUSATE SODIUM 100 MG CAPSULE PO SCH ×2 (09:00→20:04)
[2021-04-13] MEDS ORDERED: DENTURE ADHESIVE 68 GM CREAM DT ONE (10:30)
[2021-04-13] MEDS: LEVOTHYROXINE SODIUM 200 MCG TABLET PO SCH (11:50)
[2021-04-13] MEDS: MORPHINE SULFATE 2 MG/ML SYRINGE IVP PRN (13:50)
[2021-04-13] MEDS: HYDROCODONE/ACETAMINOPHEN 5-325 MG TABLET PO PRN ×2 (16:11→21:58)
[2021-04-13 17:37] LABS: AMPHET/METH SCREEN,URINE NEGATIVE (NEGATIVE); BARBITURATE SCREEN, URINE NEGATIVE (NEGATIVE); BENZODIAZEPINES SCREEN,URINE NEGATIVE (NEGATIVE); CANNABINOID SCREEN,URINE NEGATIVE (NEGATIVE); COCAINE SCREEN,URINE NEGATIVE (NEGATIVE); METHADONE SCREEN, URINE NEGATIVE (NEGATIVE); OPIATE SCREEN,URINE NEGATIVE (NEGATIVE)
[2021-04-13 17:54] LABS: PHENCYCLIDINE SCREEN,URINE NEGATIVE (NEGATIVE)
[2021-04-13 18:47] VITALS: BP 131/80
[2021-04-13 19:22] VITALS: BP 135/85
[2021-04-13] MEDS: LEVOFLOXACIN 750 MG/D5% WATER 150 ML IV SCH (21:53)
[2021-04-13] MEDS: ZOLPIDEM TARTRATE 5 MG TABLET PO PRN (21:57)
[2021-04-13] MEDS ORDERED: SODIUM CHLORIDE 0.9% 1,000 ML IV SCH (23:15)
[2021-04-14] MEDS: HYDROCODONE/ACETAMINOPHEN 5-325 MG TABLET PO PRN ×4 (01:45→21:38)
[2021-04-14 04:15] VITALS: BP 122/65
[2021-04-14] MEDS: LEVOTHYROXINE SODIUM 200 MCG TABLET PO SCH (05:43)
[2021-04-14 07:55] VITALS: BP 127/71
[2021-04-14] MEDS: DOCUSATE SODIUM 100 MG CAPSULE PO SCH ×2 (08:07→20:46)
[2021-04-14] MEDS: ATORVASTATIN CALCIUM 20 MG TABLET PO SCH (08:07)
[2021-04-14] MEDS: PANTOPRAZOLE SODIUM 40 MG DR TABLET PO SCH (08:07)
[2021-04-14] MEDS: HEPARIN SODIUM,PORCINE 5,000 UNITS/ML VIAL SQ SCH ×3 (08:08→23:22)
[2021-04-14] MEDS: SODIUM CHLORIDE 0.9% 1,000 ML IV SCH (14:43)
[2021-04-14 16:15] VITALS: BP 135/83
[2021-04-14] MEDS: LEVOFLOXACIN 750 MG/D5% WATER 150 ML IV SCH (17:29)
[2021-04-14 20:20] VITALS: BP 162/101
[2021-04-15] MEDS: ZOLPIDEM TARTRATE 5 MG TABLET PO PRN ×2 (00:06→22:21)
[2021-04-15 00:27] VITALS: BP 159/117
[2021-04-15] MEDS: SODIUM CHLORIDE 0.9% 1,000 ML IV SCH ×2 (01:49→16:57)
[2021-04-15 04:24] VITALS: BP 160/87
[2021-04-15] MEDS: MORPHINE SULFATE 2 MG/ML SYRINGE IVP PRN ×2 (04:38→19:51)
[2021-04-15] MEDS: LEVOTHYROXINE SODIUM 200 MCG TABLET PO SCH (06:30)
[2021-04-15] MEDS: HEPARIN SODIUM,PORCINE 5,000 UNITS/ML VIAL SQ SCH ×3 (07:54→23:20)
[2021-04-15] MEDS: PANTOPRAZOLE SODIUM 40 MG DR TABLET PO SCH (07:54)
[2021-04-15] MEDS: ATORVASTATIN CALCIUM 20 MG TABLET PO SCH (07:54)
[2021-04-15] MEDS: DOCUSATE SODIUM 100 MG CAPSULE PO SCH ×2 (07:54→19:52)
[2021-04-15] MEDS: HYDROCODONE/ACETAMINOPHEN 5-325 MG TABLET PO PRN ×2 (09:42→13:41)
[2021-04-15 10:05] VITALS: BP 126/78
[2021-04-15 12:59] LABS: BASOPHILS % (AUTO) 0.8 % (0.0-2.0); EOSINOPHILS % (AUTO) 1.1 % (1.0-6.0); HEMATOCRIT 37.3 % (36-46); HEMOGLOBIN 12.5 g/dL (12.0-16.0); LYMPHOCYTES # (AUTO) 1.2 K/uL (1.0-4.8); LYMPHOCYTES % (AUTO) 11.3 % (22.0-44.0); MEAN CORPUSCULAR HEMOGLOBIN 25.5 pg (26.0-34.0); MEAN CORPUSCULAR HGB CONC 33.4 G/dL (31.0-37.0); MEAN CORPUSCULAR VOLUME 76 fL (80-100); MONOCYTES # (AUTO) 0.5 K/uL (0.1-1.0); MONOCYTES % (AUTO) 4.7 % (2.0-9.0); NEUTROPHILS # (AUTO) 8.8 K/uL (1.8-7.7); NEUTROPHILS % (AUTO) 82.1 % (40.0-70.0); PLATELET COUNT (AUTO) 464 K/uL (150-450); RED BLOOD CELL COUNT(AUTO) 4.89 MIL/uL (4.00-5.20); RED CELL DISTRIBUTION WIDTH 16.3 % (11.5-14.5)
[2021-04-15 15:38] VITALS: BP 156/78
[2021-04-15] MEDS: PREGABALIN 50 MG CAPSULE PO SCH ×2 (16:56→19:54)
[2021-04-15] MEDS: DICLOFENAC SODIUM 1% 100 GM GEL [2GM] TP SCH ×2 (16:56→23:22)
[2021-04-15] MEDS: LEVOFLOXACIN 750 MG/D5% WATER 150 ML IV SCH (16:57)
[2021-04-15 19:48] VITALS: BP 159/98
[2021-04-15] MEDS: BENZTROPINE MESYLATE 1 MG TABLET PO SCH (19:52)
[2021-04-15] MEDS ORDERED: MELATONIN 3 MG TABLET PO SCH (21:00)
[2021-04-15] MEDS ORDERED: QUEtiapine FUMARATE 300 MG TABLET PO SCH (21:00)
[2021-04-15] MEDS ORDERED: DIVALPROEX SODIUM 500 MG ER TABLET PO SCH (21:00)
[2021-04-16 00:05] VITALS: BP 111/72
[2021-04-16 04:10] VITALS: BP 115/76
[2021-04-16] MEDS: SODIUM CHLORIDE 0.9% 1,000 ML IV SCH (05:31)
[2021-04-16] MEDS: LEVOTHYROXINE SODIUM 200 MCG TABLET PO SCH ×2 (05:32→05:38)
[2021-04-16] MEDS: DOCUSATE SODIUM 100 MG CAPSULE PO SCH (09:00)
[2021-04-16] MEDS: HYDROCODONE/ACETAMINOPHEN 5-325 MG TABLET PO PRN ×2 (10:01→16:54)
[2021-04-16] MEDS: BENZTROPINE MESYLATE 1 MG TABLET PO SCH (10:01)
[2021-04-16] MEDS: ATORVASTATIN CALCIUM 20 MG TABLET PO SCH (10:01)
[2021-04-16] MEDS: PANTOPRAZOLE SODIUM 40 MG DR TABLET PO SCH (10:02)
[2021-04-16] MEDS: HEPARIN SODIUM,PORCINE 5,000 UNITS/ML VIAL SQ SCH ×2 (10:03→15:47)
[2021-04-16] MEDS: DICLOFENAC SODIUM 1% 100 GM GEL [2GM] TP SCH ×2 (10:13→15:47)
[2021-04-16] MEDS: PREGABALIN 50 MG CAPSULE PO SCH ×2 (10:14→15:47)
[2021-04-16 12:21] VITALS: BP 159/75
[2021-04-16 15:43] VITALS: BP 109/50
[2021-04-17] MEDS ORDERED: LEVO750T68 PO (07:30)
== END 2021-04-16 17:35 | DRG 871 ==
LOC: EMS 10:21 → 6N 04-13 16:29
PROVIDERS: ADMIT Internal Medicine; ATTEND Internal Medicine
DX: A41.9 Sepsis, unspecified organism (principal); J18.9 Pneumonia, unspecified organism; G93.41 Metabolic encephalopathy; J44.0 Chronic obstructive pulmonary disease with (acute) lower respiratory infection; N17.9 Acute kidney failure, unspecified; Z66 Do not resuscitate; K21.9 Gastro-esophageal reflux disease without esophagitis; F17.210 Nicotine dependence, cigarettes, uncomplicated; E03.9 Hypothyroidism, unspecified; I95.9 Hypotension, unspecified; F41.9 Anxiety disorder, unspecified; F32.A Depression, unspecified; M19.90 Unspecified osteoarthritis, unspecified site; E11.9 Type 2 diabetes mellitus without complications; I10 Essential (primary) hypertension; E66.01 Morbid (severe) obesity due to excess calories; E78.00 Pure hypercholesterolemia, unspecified; E78.5 Hyperlipidemia, unspecified; F25.9 Schizoaffective disorder, unspecified; Z20.822 Contact with and (suspected) exposure to COVID-19; Z93.3 Colostomy status; Z87.11 Personal history of peptic ulcer disease; Z51.5 Encounter for palliative care; Z79.899 Other long term (current) drug therapy; Z68.37 Body mass index [BMI] 37.0-37.9, adult; Z91.030 Bee allergy status
CPT/HCPCS: 70450; 71045; 80053; 81003; 82550; 83605; 83735; 83880; 84100; 84484; 85025; 85610; 85730; 87040; 87077; 87205; 93005; 93306; 99291; J0456; J1644; J1956; J2270; J2543; J3370; J7030; J7050; 36415-L1; 36415-TC; U0003

== ENCOUNTER 2023-09-24 06:18 | Day surgery (SDC) | payer MEDICARE, OTHER ==
[~2023-09-24] VITALS: Ht 139.7 cm; Wt 102.7 kg
[~2023-09-24 06:18] MED LIST changes: -ACET650S24 PR; +ATOR10TA PO; -ATOR20TA86 PO; +BENZ-247 PO; -BENZ1TAB10 PO; +CARV3 PO; +CHOL200059 PO; +CYCL-448 PO; +DIVA-112 PO; +DOCU-412 PO; -DULO20CA27 PO; +ESCI-8 PO; +FURO20 PO; +GABA-1181 PO; +LEVO100 PO; -LEVO200 PO; +LEVO75 PO; +MELA5TAB40 PO; -METO-296 PO; -MOM30 PO; +OMEP20 PO; -ONDA-104 PO; -PANT-31 PO; +POLY17PO47 PO; +QUET100T PO; -QUET200T PO; +RIVA15TA PO; +SENN-376 PO; +SODIUM CHLORIDE 0.9% 1,000 ML ONE; -TRAZ-257 PO
[2023-09-24] MEDS ORDERED: PROPOFOL 1% ISO-OSM 1000 MG/100 ML BOTTLE ONE (06:23)
[2023-09-24] MEDS ORDERED: LIDOCAINE/PF 2% 5 ML SYRINGE IVP ONE (06:23)
[2023-09-24] MEDS: SODIUM CHLORIDE 0.9% 1,000 ML IV ONE (07:42)
[2023-09-24 08:11] LABS: GLUCOMETER DEV NAME(LOC) SDS.; GLUCOSE,POINT OF CARE 96 MG/DL (70-110)
[2023-09-24] MEDS ORDERED: OXYGEN THERAPY IH SCH (09:00)
== END 2023-09-24 10:40 | disposition home or self-care (01) ==
LOC: SURGERY 06:18
PROVIDERS: ATTEND Specialist
DX: R13.10 Dysphagia, unspecified (principal); K21.9 Gastro-esophageal reflux disease without esophagitis; K44.9 Diaphragmatic hernia without obstruction or gangrene; K29.50 Unspecified chronic gastritis without bleeding; E11.9 Type 2 diabetes mellitus without complications; J44.9 Chronic obstructive pulmonary disease, unspecified; I10 Essential (primary) hypertension; E03.9 Hypothyroidism, unspecified; F32.A Depression, unspecified; F20.9 Schizophrenia, unspecified; E78.5 Hyperlipidemia, unspecified; M19.90 Unspecified osteoarthritis, unspecified site; R26.81 Unsteadiness on feet; Z87.891 Personal history of nicotine dependence; Z79.890 Hormone replacement therapy; Z79.84 Long term (current) use of oral hypoglycemic drugs; Z79.899 Other long term (current) drug therapy; Z90.10 Acquired absence of unspecified breast and nipple; Z98.890 Other specified postprocedural states; Z83.3 Family history of diabetes mellitus; Z82.49 Family history of ischemic heart disease and other diseases of the circulatory system
CPT/HCPCS: 43239; 82962; 88305; 88312; 88313; C1769; J2704; J3490; J7030